=== PATIENT | female | born 1975 | race Caucasian/White ===

== ENCOUNTER 2018-11-02 08:38 | Inpatient (IN) | payer OTHER ==
[2018-11-02] VITALS (20 sets, daily range): BP systolic 92–118; BP diastolic 48–61; PULSE 114–143; RESP 14–35; Ht 165.1 cm; Wt 62.7 kg
[~2018-11-02] VITALS: Ht 165.1 cm; Wt 62.7 kg
[2018-11-02] MEDS ORDERED: SOD CHLORIDE 0.9% 1,000 ML IV ONE (09:00)
[2018-11-02] MEDS ORDERED: SOD CHLORIDE 0.9% 500 ML IV ONE (09:00)
[2018-11-02] MEDS ORDERED: NS + KCL 40 MEQ 1,000 ML IV SCH (09:38)
[2018-11-02] MEDS ORDERED: DEXTROSE 10 %/0.45 % NACL 1,000 ML IV SCH (09:38)
[2018-11-02] MEDS ORDERED: NS + KCL 30 MEQ 1,000 ML IV SCH (09:38)
[2018-11-02] MEDS ORDERED: D10/0.45% NACL + KCL 40 MEQ 1,000 ML IV SCH (09:38)
[2018-11-02] MEDS ORDERED: D10/0.45% NACL + KCL 30 MEQ 1,000 ML IV SCH (09:38)
[2018-11-02] MEDS ORDERED: CA CHLORIDE 10% 10 ML SYRINGE IV STA (09:57)
[2018-11-02] MEDS ORDERED: NA BICARBONATE 8.4% 50 ML SYG IV STA ×2 (09:57→13:31)
[2018-11-02] MEDS ORDERED: ALBUTEROL 0.5% (NEB) 2.5 MG/0.5 ML AMP INH STA (09:57)
[2018-11-02] MEDS ORDERED: DEXTROSE 50% 50 ML SYRINGE IV PRN ×7 (10:00→22:30)
[2018-11-02] MEDS ORDERED: INSULIN REGULAR, HUMAN 100 UNIT in SOD CHLORIDE 0.9% 100 ML IV SCH ×4 (10:00→11:30)
[2018-11-02] MEDS ORDERED: CEFEPIME 1GM/50 ML (PMX) 50 ML IVPB ONE (10:00)
[2018-11-02] MEDS ORDERED: VANCOMYCIN 1 GM (PMX) 250 ML IVPB ONE (10:00)
[2018-11-02] MEDS ORDERED: LACTATED RINGER'S 590 ML IV ONE (10:00)
[2018-11-02] MEDS ORDERED: ACETAMINOPHEN 325 MG TAB PO PRN (10:30)
[2018-11-02] MEDS ORDERED: ONDANSETRON 4 MG INJ IV PRN ×2 (10:30→11:30)
--- NOTE | 2018-11-02 10:47 | ERD ---
ER Documentation Chief Complaint Chief Complaint hyperglycemia HPI This is a 42-year-old female with a past medical history of insulin-dependent diabetes who is presenting with symptoms concerning for DKA. The patient has had several days of progressive worsening lethargy, dehydration, polydipsia, polyuria, nausea and abdominal pain. She does not endorse vomiting or diarrhea. The patient has been more lethargic as well. She does not endorse feeling sick over the last several days. She denies any fever or chills. The patient has had no headache or vision changes. The patient does not endorse neck or back pain. The patient denies lightheadedness or dizziness. The patient has had no chest pain or trouble breathing. The patient denies abdominal pain. The patient denies changes to bowel movements. The patient has had no focal deficits. The patient has had no weakness or numbness or tingling to the face or extremities. ROS All systems reviewed and are negative except as per history of present illness. Medications Home Meds Unable to Obtain Active Prescriptions or Reported Meds Allergies Allergies: Coded Allergies: No Known Allergy (Unverified , 11/02/18) PMhx/Soc Medical and Surgical Hx: pt denies Surgical Hx History of Surgery: No Anesthesia Reaction: No Hx Neurological Disorder: No Hx Respiratory Disorders: No Hx Cardiac Disorders: Yes (Type 1 diabetes) Hx Psychiatric Problems: No Hx Miscellaneous Medical Probl: No Hx Alcohol Use: No Hx Substance Use: No Hx Tobacco Use: No FmHx Family History: diabetes Physical Exam Vitals Vital Signs Date Temp Pulse Resp B/P (MAP) Pulse Ox O2 O2 Flow FiO2 Time Delivery Rate 11/02/18 97.2 120 26 151/82 98 08:39 (105) Physical Exam Const: No apparent distress, well-developed, well-nourished Head: Normocephalic, Atraumatic Eyes: Normal Conjunctiva. Extraocular movements intact. Pupils equal, round and reactive to light ENT: Normal External Ears, Nose. Dry mucous membranes. Neck: Full range of motion. No meningismus. Resp: Tachypneic. Clear to auscultation bilaterally, No wheezes, rales or rhonchi Cardio: Regular rhythm. Tachycardia. No murmurs, rubs or gallops Abd: Soft, non tender, non distended. Normal bowel sounds Skin: No petechiae or rashes Back: No midline tenderness. No CVA tenderness Ext: No cyanosis, or edema Neur: Sleepy but arousable, oriented 4. Cranial nerves intact. No facial droop. Normal strength, sensation and coordination. Psych: Anxious Result Diagram: 11/02/18 0924 11/02/18 1500 Results 24 hrs Laboratory Tests Test 11/02/18 09:01 11/02/18 09:24 11/02/18 10:18 Bedside Glucose > 595 mg/dL > 595 mg/dL White Blood Count 20.4 10^3/ul Red Blood Count 4.93 10^6/ul Hemoglobin 14.4 g/dl Hematocrit 49.1 % Mean Corpuscular Volume 99.6 fl Mean Corpuscular Hemoglobin 29.2 pg Mean Corpuscular 29.3 g/dl Hemoglobin Concent Red Cell Distribution Width 12.4 % Platelet Count 431 10^3/UL Mean Platelet Volume 11.3 fl Immature Granulocytes % 0.700 % Neutrophils % 88.9 % Lymphocytes % 7.8 % Monocytes % 2.3 % Eosinophils % 0.0 % Basophils % 0.3 % Nucleated Red Blood Cells % 0.0 /100WBC Immature Granulocytes # 0.140 10^3/ul Neutrophils # 18.1 10^3/ul Lymphocytes # 1.6 10^3/ul Monocytes # 0.5 10^3/ul Eosinophils # 0.0 10^3/ul Basophils # 0.1 10^3/ul Nucleated Red Blood Cells # 0.0 10^3/ul Blood Gas Specimen Source Blood venous Arterial Blood Date Drawn 11/02/2018 9:26:21 AM Arterial Blood Gas VENOUS LINE Puncture Site Robbin Test N/A Venous Blood pH 6.959 Venous Blood pCO2 15.3 mmHG (Temp Corrected) Venous Blood pO2 75.3 mmHG (Temp Corrected) Venous Blood HCO3 3.4 mmol/L Venous Blood Oxygen 87.3 mmHG Saturation Venous Blood Base Excess -27.1 mmol/L Venous Blood Total 14.5 g/dl Hemoglobin Venous Blood Oxyhemoglobin 86.7 % Venous Blood Methemoglobin 0.3 % Carboxyhemoglobin 0.4 % Blood Gas Temperature 37.0 C Blood Gas Modality ROOM AIR FiO2 21.0 % Blood Gas Critical Value DR. EGAN Read Back Blood Gas Notified Whom Matilda Blood Gas Notified Time 11/02/2018 9:35:52 AM Sodium Level 137 mmol/L Potassium Level 7.4 mmol/L Chloride Level 104 mmol/L Carbon Dioxide Level 6 mmol/L Anion Gap 27 Blood Urea Nitrogen 22 mg/dl Creatinine 1.03 mg/dl Est Glomerular Filtrat 59 mL/min Rate mL/min Glucose Level 774 mg/dl Hemoglobin A1c 11.3 % Calcium Level 10.3 mg/dl Phosphorus Level 10.1 mg/dl Magnesium Level 3.0 mg/dl Current Medications Medications Dose Sig/[place] Start Time Status Last (Trade) Ordered Route PRN Stop Time Admin Dose Reason Admin Sodium 1,000 ml @ Q1H ONCE 11/02/18 DC 11/02/18 Chloride 1,000 mls/hr IV 09:00 08:56 11/02/18 09:59 Sodium 500 ml @ Q1H ONCE 11/02/18 DC 11/02/18 Chloride 500 mls/hr IV 09:00 08:58 11/02/18 09:59 Potassium 1,000 ml @ Q0M IV 11/02/18 Chloride/Sodi 0 mls/hr 09:38 um Chloride Potassium 1,000 ml @ Q0M IV 11/02/18 Chloride/Dext 0 mls/hr 09:38 vipin/ Sod Cl Potassium 1,000 ml @ Q0M IV 11/02/18 Chloride/Sodi 0 mls/hr 09:38 um Chloride Potassium 1,000 ml @ Q0M IV 11/02/18 Chloride/Dext 0 mls/hr 09:38 vipin/ Sod Cl Sodium 1,000 ml @ Q0M IV 11/02/18 11/02/18 Chloride 0 mls/hr 09:38 15:57 1,000 ml @ Q0M IV 11/02/18 Dextrose/Sodi 0 mls/hr 09:38 um Chloride Insulin 101 ml @ ER DKA 11/02/18 DC Human 5.97 mls/hr PROTOCOL IV 10:00 Regular 100 11/02/18 11:43 unit/ Sodium Chloride Lactated 590 ml @ ONCE ONCE 11/02/18 DC 11/02/18 Ringer's 590 mls/hr IV 10:00 10:22 11/02/18 10:59 HYPOGLYCEM 11/02/18 Miscellaneous HYPOGLYCEMIA PROTOCOL PRN 10:00 TREATMENT XX Information .HYPOGLYCEMIA (* PROTOCOL Miscellaneous Pharmacy Order) Dextrose 50 ml Q15M PRN 11/02/18 DC (D50w IV 10:00 Syringe) .DECREASED 11/02/18 11:44 GLUCOSE Dextrose 25 ml Q15M PRN 11/02/18 DC (D50w IV 10:00 Syringe) .DECREASED 11/02/18 11:44 GLUCOSE Albuterol 15 mg ONCE STAT 11/02/18 DC 11/02/18 (Proventil INH 09:57 11:23 0.5% (Neb)) 11/02/18 10:41 Sodium 50 ml ONCE STAT 11/02/18 DC 11/02/18 Bicarbonate IV 09:57 10:48 (Na Bicarb 11/02/18 10:41 8.4% Syg) Calcium 1,000 mg ONCE STAT 11/02/18 DC 11/02/18 Chloride IV 09:57 10:51 (Ca Chloride 11/02/18 10:44 10% Syg) Vancomycin 250 ml @ ONCE ONCE 11/02/18 DC 11/02/18 HCl 125 mls/hr IVPB 10:00 11:58 11/02/18 11:59 Cefepime HCl 50 ml @ ONCE ONCE 11/02/18 DC 11/02/18 100 mls/hr IVPB 10:00 11:15 11/02/18 10:42 Procedures/MDM MDM The patient's presentation warrants further investigation. Previous medical records, if available, were reviewed. LABS The patient's laboratory testing was obtained and reviewed. No emergent treatment was required unless described below. CBC: Leukocytosis, potentially related to an infectious etiology. No E/o severe anemia. Thrombocytosis, likely reactive BMP: Severe anion gap metabolic acidosis in the setting of significant hyperglycemia, concerning for diabetic ketoacidosis. Hyperkalemia, emergent. Mildly elevated BUN and creatinine, concerning for acute kidney injury. Lactate: E/o severe sepsis Urine: Glucosuria and ketonuria without evidence of infection or hematuria. EKG EKG read by me: Rate/Rhythm: Sinus tachycardia at 119 bpm Intervals: Normal [place]: Normal Impression: No evidence of acute ischemia. Sinus tachycardia. TREATMENT/DISPOSITION The patient presents with symptoms concerning for DKA. The DKA protocol was initiated. The patient was hyperkalemic and required emergent treatment for this as well. The patient is tachycardic and has a leukocytosis. This could be from DKA itself, but I cannot definitively rule out sepsis from the emergency department. The patient was given an initial bolus of 1500 mL of IV fluids. She was later given lactated Ringer's to bring her up to 30 mL/kg within the first 3 hours. The patient was also provided broad-spectrum antibiotics after blood cultures were taken. During reassessment, the patient became more lethargic and unresponsive. She started to have 2 small breathing. At this point, the decision was made to emergently intubate the patient. ENDOTRACHEAL INTUBATION Performed by me. Pre-assessment performed. Pre-oxygenation performed with 100% oxygen. RSI: Performed w/o complication or hypoxic events. Medications as ordered. Blade: Mac 3 via video larygnoscope ET Tube: 7.0 mm Depth: 23 cm at the lip Intubation confirmed by visualization, colorimetric CO2, equal breath sounds, quiet over the stomach. Chest X-ray 1V Interpreted by me: ET tube midline above the ryne. Normal soft tissue, No pneumothorax. SEPSIS NOTE SIRS Criteria: Tachycardia, leukocytosis Infectious source: Unknown End organ damage indicated by: None SEPSIS MANAGEMENT Time to recognize sepsis: Upon arrival. Time to recognize severe sepsis: No severe sepsis at this time. Time to recognize septic shock: No septic shock at this time. 3 HOUR BUNDLE Blood cultures x 2 before abx: Yes 30 ml/kg NS bolus completed Initial lactate 1.6 Repeat lactate not indicated SEPTIC SHOCK ASSESSMENT: YES lactic acid > 4.0 NO persistent hypotension (SBP < 90 or 40 mmHg drop, MAP < 65) despite 30 L/kg IV fluid bolus VOLUME REASSESSMENT FOR SEPTIC SHOCK: Reevaluation Time: 1302 Temp 97.2 (performed at 12:20PM), BP 115/61, HR 122, RR, Pox 97% Heart Regular rate. Tachycardia Lungs [No crackles] Skin [Warm & dry] Cap Refill [Less than 2 seconds] Pulses [Radially present] CRITICAL CARE Critical care time 43 minutes Emergent fluid management while maintaining close respiratory support. Provision of immediate and broad-spectrum antibiotic therapy. Simultaneous assessment for possible sources in order to direct targeted therapy. Consideration for invasive and chemical support to prevent cardiopulmonary collapse. Critical care time is independent of procedures performed. ADMISSION The patient will be admitted to panel in accordance with the patient's insurance. The patient was accepted by Dr. Puckett to the ICU at 10:15 AM on November 02, 2018. Disclaimer: Inadvertent spelling and grammatical errors are likely due to E HR/dictation software use and do not reflect on the overall quality of patient care. Note that the electronic time recorded on this note does not necessarily reflect the actual time of the patient encounter. Departure Diagnosis: Primary Impression: Diabetic ketoacidosis Diabetes mellitus type: type 1 Diabetes mellitus complication detail: without coma Qualified Codes: E10.10 - Type 1 diabetes mellitus with ketoacidosis without coma Additional Impressions: Hyperglycemia High anion gap metabolic acidosis Tachycardia Tachypnea Leukocytosis Leukocytosis type: unspecified Qualified Codes: D72.829 - Elevated white blood cell count, unspecified Thrombocytosis Hyperkalemia Acute kidney injury Septic shock Condition: Critical NIYA EGAN MD Nov 02, 2018 10:45
[2018-11-02] MEDS: ACCU-CHEK XX SCH ×12 (11:30→22:30)
[2018-11-02] MEDS ORDERED: DOCUSATE SODIUM 100 MG CAP PO PRN (11:30)
[2018-11-02] MEDS ORDERED: HYDROCODONE/APAP (5/325) TAB PO PRN (11:30)
[2018-11-02] MEDS ORDERED: MAGNESIUM HYDROXIDE 30ML CUP PO PRN (11:30)
[2018-11-02] MEDS ORDERED: Please discontinue ALL previous duplicate IV Fluid orders for DKA from ER XX ONE (11:30)
[2018-11-02] MEDS ORDERED: PIPER-TAZO 3.375 GM IV (PMX) 100 ML IVPB SCH (12:00)
[2018-11-02] MEDS: SOD CHLORIDE 0.9% 1,000 ML IV SCH ×2 (12:19→15:57)
--- NOTE | 2018-11-02 13:20 | HP ---
Date/Time of Note Date/Time of Note DATE: 11/02/18 TIME: 13:19 Assessment/Plan VTE Prophylaxis SCD applied (from Nsg): Yes Pharmacological prophylaxis: LMWH Lines/Catheters IV Catheter Type (from Nrsg): Saline Lock Assessment/Plan Assessment/Plan 1. Severe DKA - Management per protocol - requiring extra LR boluses given very dehydrated - continue ISS 2. hyperkalemia - given calcium carbonate in ED - continues to improve while on insulin drip - continue to monitor - no arrhythmias appreciated 3. Leukocytosis - no signs of infection and most likely reactive 4. Severe metabolic acidosis secondary to #1 5. h/o DM type 1 - has not been well managed given has not had her insulin pump - discussed with mother who states she needs to make an appointment and has been having issues 6. ISABELLE, prerenal - continue fluid resuscitation - monitor Cr and if worsening, will consult nephrology 7. Acute hypoxic respiratory failure - vent management per Pulmonology 8. GI ppx - PPI 9. DVT ppx - LMWH 10. Disposition - Admit to ICU for vent management and DKA protocol Result Diagram: 11/02/18 0924 11/02/18 1125 Results 24hrs Laboratory Tests Test 11/02/18 09:01 11/02/18 09:24 11/02/18 10:18 11/02/18 10:31 Bedside Glucose > 595 *H > 595 *H White Blood 20.4 H Count Red Blood Count 4.93 Hemoglobin 14.4 Hematocrit 49.1 H Mean Corpuscular 99.6 Volume Mean Corpuscular 29.2 Hemoglobin Mean Corpuscular 29.3 L Hemoglobin Shirley nt Red Cell 12.4 Distribution Width Platelet Count 431 H Mean Platelet 11.3 H Volume Immature 0.700 H Granulocytes % Neutrophils % 88.9 H Lymphocytes % 7.8 L Monocytes % 2.3 Eosinophils % 0.0 Basophils % 0.3 Nucleated Red 0.0 Blood Cells % Immature 0.140 H Granulocytes # Neutrophils # 18.1 H Lymphocytes # 1.6 Monocytes # 0.5 Eosinophils # 0.0 Basophils # 0.1 Nucleated Red 0.0 Blood Cells # Blood Gas Blood venous Specimen Source Arterial Blood 11/02/2018 9:26: Date Drawn 21 AM Arterial Blood VENOUS LINE Gas Puncture Site Robbin Test N/A Venous Blood pH 6.959 *L Venous Blood 15.3 L pCO2 (Temp Corrected) Venous Blood pO2 75.3 H (Temp Corrected) Venous Blood 3.4 L HCO3 Venous Blood 87.3 H Oxygen Saturation Venous Blood -27.1 L Base Excess Venous Blood 14.5 Total Hemoglobin Venous Blood 86.7 Oxyhemoglobin Venous Blood 0.3 Methemoglobin Carboxyhemoglobi 0.4 n Blood Gas 37.0 Temperature Blood Gas ROOM AIR Modality FiO2 21.[address] EGAN Critical Value Read Back Blood Gas Matilda Notified Whom Blood Gas 11/02/2018 9:35: Notified Time 52 AM Sodium Level 137 Potassium Level 7.4 *H Chloride Level 104 Carbon Dioxide 6 *L Level Anion Gap 27 H Blood Urea 22 H Nitrogen Creatinine 1.03 H Est Glomerular 59 L Filtrat Rate mL/min Glucose Level 774 *H Hemoglobin A1c 11.3 H Calcium Level 10.3 H Phosphorus Level 10.1 H Magnesium Level 3.0 H POC Venous 3.2 *H Lactate Test 11/02/18 10:41 11/02/18 11:25 11/02/18 11:38 11/02/18 11:44 Urine Color STRAW Urine Clarity CLEAR Urine pH 5.0 Urine Specific 1.021 [place] Urine Ketones 2+ H Urine Nitrite NEGATIVE Urine Bilirubin NEGATIVE Urine NEGATIVE Urobilinogen Urine Leukocyte NEGATIVE Esterase Urine 0 Microscopic RBC Urine 1 Microscopic WBC Urine Bacteria FEW A Urine Mucus FEW A Urine Hemoglobin 1+ H Urine Glucose 3+ H Urine Total NEGATIVE Protein Urine Opiates Negative Screen Urine Negative Barbiturates Urine Positive Amphetamines Screen Urine Negative Benzodiazepines Screen Urine Cocaine Negative Screen Urine Negative Cannabinoids Sodium Level 140 Potassium Level 7.3 *H Chloride Level 110 Carbon Dioxide < 5 *L Level Anion Gap 25 H Blood Urea 22 H Nitrogen Creatinine 1.06 H Est Glomerular 57 L Filtrat Rate mL/min Glucose Level 775 *H Calcium Level 11.3 H Phosphorus Level 10.6 H Magnesium Level 2.8 H Blood Gas Blood venous Specimen Source Arterial Blood 11/02/2018 12:20 Date Drawn :00 PM Arterial Blood VENOUS LINE Gas Puncture Site Robbin Test N/A Venous Blood pH 6.816 *L Venous Blood 10.6 L pCO2 (Temp Corrected) Venous Blood pO2 107.9 H (Temp Corrected) Venous Blood 1.7 L HCO3 Venous Blood 93.2 H Oxygen Saturation Venous Blood -31.6 L Base Excess Venous Blood 13.6 Total Hemoglobin Venous Blood 92.5 Oxyhemoglobin Venous Blood 0.4 Methemoglobin Carboxyhemoglobi 0.3 n Blood Gas 37.0 Temperature Blood Gas ROOM AIR Modality FiO2 21.0 Blood Gas M.D. Critical Value Read Back Blood Gas M.D. Notified Whom Blood Gas 11/02/2018 12:29 Notified Time :27 PM Bedside Glucose > 595 *H Test 11/02/18 13:04 Bedside Glucose > 595 *H HPI/ROS Admit Date/Time Admit Date/Time 11/02/18 1300 Hx of Present Illness 42 yo F with PMH Diabetes type 1 and CVA presented to ED due to abdominal pain, nausea, and overall malaise since yesterday. Patient was intubated due to respiratory distress and history was obtain from ED physician as well as mother. Per mother, patient usually is on an insulin pump but has not had hers so had been manually dosing her insulin with little success. She has been very thirsty and drinking diet coke. Patient was in normal state of health until around noon when she asked her mom to call the ambulance. Patient has been hospitalized recently for DKA at [facility]. Per mother, patients father in April 2018. The pump she was supposed to transition to after her current one failed was accidently thrown away when her fathers house was cleaned out since she was residing with him. She was unable to adequately manage her sugars and ended up in ICU at [facility]. Following admission, she tried to get in with an aerospace engineer for a new pump but has not been successful. She was hospitalized again in July 2018 for DKA as well and still has not followed up with Endocrinology. Per mother, she usually is very good about glucose control when she had the pump but has been struggling since administering insulin manually. Denies any knowledge of drug or alcohol use currently. Mother states she used in her 20s but has been told she no longer uses any recreational drug or alcohol. ROS All 12 systems reviewed and pertinent positives as per HPI. Unable to obtain full ROS given patient is intubated and sedated. Subjective hx not possible: pt critical status PMH/Family/Social Past Medical History Medical History: diabetes Medications Current Medications Potassium Chloride/Sodium Chloride 1,000 ml @ 0 mls/hr Q0M IV ; Start 11/02/18 at 09:38 Potassium Chloride/Dextrose/ Sod Cl 1,000 ml @ 0 mls/hr Q0M IV ; Start 11/02/18 at 09:38 Potassium Chloride/Sodium Chloride 1,000 ml @ 0 mls/hr Q0M IV ; Start 11/02/18 at 09:38 Potassium Chloride/Dextrose/ Sod Cl 1,000 ml @ 0 mls/hr Q0M IV ; Start 11/02/18 at 09:38 Sodium Chloride 1,000 ml @ 0 mls/hr Q0M IV Last administered on 11/02/18at 12:19; Admin Dose 250 MLS/HR; Start 11/02/18 at 09:38 Dextrose/Sodium Chloride 1,000 ml @ 0 mls/hr Q0M IV ; Start 11/02/18 at 09:38 Miscellaneous Information (* Miscellaneous Pharmacy Order) HYPOGLYCEMIA CECELIA TMENT HYPOGLYCEM PROTOCOL PRN XX .HYPOGLYCEMIA PROTOCOL; Start 11/02/18 at 10:00 Ondansetron HCl (Zofran Inj) 4 mg ER BRIDGE PRN IV NAUSEA/VOMITING; Start 11/02/18 at 10:30; Stop 11/03/18 at 10:29 Acetaminophen (Tylenol Tab) 650 mg ER BRIDGE PRN PO .MILD PAIN 1-3 OR TEMP; Start 11/02/18 at 10:30; Stop 11/03/18 at 10:29 Ondansetron HCl (Zofran Inj) 4 mg Q6H PRN IV NAUSEA AND/OR VOMITING; Start 07/11 at 11:30 Acetaminophen (Tylenol Liquid) 650 mg Q6H PRN PO PAIN LEVEL 1-3 OR FEVER; Start 11/02/18 at 11:30 Acetaminophen/ Hydrocodone Bitart ([place] (5/325)) 1 tab Q6H PRN PO PAIN LEVEL 4-6; Start 11/02/18 at 11:30 Docusate Sodium (Colace) 100 mg Q12H PRN PO CONSTIPATION; Start 11/02/18 at 1 1:30 Magnesium Hydroxide (Milk Of Mag) 30 ml DAILY PRN PO CONSTIPATION; Start 11/02/18 at 11:30 Pantoprazole (Protonix Iv) 40 mg DAILY@06 IV ; Start 11/03/18 at 06:00 Enoxaparin Sodium (Lovenox) 40 mg DAILY SC ; Start 11/03/18 at 09:00 Dextrose (D50w Syringe) 50 ml Q15M PRN IV For BS 50 or less; Start 11/02/18 at 11:30 Dextrose (D50w Syringe) 25 ml Q15M PRN IV BS between 50-70; Start 11/02/18 at 11:30 Diagnostic Test (Pha) (Accu-Chek) 1 ea Q1H XX ; Start 11/02/18 at 11:30 Miscellaneous Information (* Miscellaneous Pharmacy Order) HYPOGLYCEMIA TREATMENT HYPOGLYCEM PROTOCOL PRN XX Hypoglycemia (BS < 70); Start 11/02/18 at 11:30 Insulin Human Regular 100 unit/ Sodium Chloride 101 ml @ 5.97 mls/hr DKA PROTOCOL IV Last administered on 11/02/18at 12:18; Admin Dose 5.97 MLS/HR; Start 11/02/18 at 11:30 Piperacillin Sod/ Tazobactam Sod 100 ml @ 200 mls/hr Q8 IVPB ; Start 11/02/18 at 12:00 Coded Allergies: No Known Allergy (Unverified , 11/02/18) Past Surgical History Past Surgical Hx: other (breast implants) Family History Significant Family History: no pertinent family hx Social History Alcohol Use: other (unknown) Smoking Status: Unknown if ever smoked Drug Use: other (unknown) Exam/Review of Systems Vital Signs Vitals Vital Signs Date Temp Pulse Resp B/P (MAP) Pulse Ox O2 O2 Flow FiO2 Time Delivery Rate 11/02/18 122 22 115/61 97 13:02 (79) 11/02/18 97.2 Room Air 12:20 11/02/18 2.0 11:38 11/02/18 21 11:24 Exam Exam General: Patient is currently intubated and sedated. [place]ul breathing appreciated HEENT: Atraumatic, normocephalic. The pupils are equal, round and reactive. Extraocular motor are intact Neck: Supple with full range of motion. No rigidity or meningismus Chest: Nontender Lungs: Clear to auscultation bilaterally no crackles rales or wheezing Heart: S1, S2, tachycardia, no murmurs Abdomen: Soft , nontender, nondistended , bowel sounds are present. No guarding no rebound tenderness , No masses or organomegaly. No costovertebral temporal angle mass Extremities: Normal to inspection, no edema no cyanosis Neurologic: unable to assess Skin: no lesions or rashes appreciated Additional Comments PROCEDURE: XR Chest. CLINICAL INDICATION: Sepsis TECHNIQUE: Frontal chest x-ray was obtained. COMPARISON: None. FINDINGS: The heart is not enlarged. Mediastinum is not widened. No hilar masses seen. Lungs are clear of any infiltrates. There is no effusion or pneumothorax. The osseous structures appear normal. Patient is status post bilateral augmentation mammoplasty. IMPRESSION: No evidence for active cardiopulmonary disease. .Kostas Ravi MD, MD Date Time Electronically viewed and signed by .Kostas Ravi MD, MD on 11/02/2018 11:08 GOSIA PONCE MD Nov 02, 2018 13:19
[2018-11-02] MEDS ORDERED: LACTATED RINGER'S 500 ML IV ONE (14:00)
[2018-11-02] MEDS ORDERED: MIDAZOLAM 1 MG/ML 2 ML INJ ONE (14:07)
[2018-11-02] MEDS ORDERED: MIDAZOLAM 1 MG/ML 2 ML INJ IV ONE ×2 (14:30→16:30)
[2018-11-02] MEDS ORDERED: SODIUM BICARBONATE (IV ADD) 50 MEQ in DEXTROSE 5% 950 ML IV SCH (14:30)
[2018-11-02] MEDS ORDERED: INSULIN REGULAR, HUMAN 100 UNIT in SOD CHLORIDE 0.9% 99 ML IV SCH ×2 (14:41)
[2018-11-02] MEDS ORDERED: LACTATED RINGER'S 1,000 ML IV ONE ×2 (15:00→16:30)
--- NOTE | 2018-11-02 15:02 | CONS ---
Assessment/Plan Assessment/Plan Assessment/Plan (Daily) IMP: 1. Severe DKA 2. Severe Anion Gap Metabolic Acidosis 2/2 #1 3. Pre-renal azotemia 4. Resp Failure 2/2 severe acidemia 5. HyperK+ 2/2 #1 6. Possible substance abuse and noncompliance RECS: 1. Aggressive IV resuscitation with isotonic fluids 2. Insulin gtt 3. Panculture; serial troponins 4. check TSH 5. Needs IV access 6. D/C abx 7. DVT and GI prophy 8. Q 2 hour chemistry and lytes 9. Vent to V-AC 30 VT 400; follow gases 10. Needs central line Consultation Date/Type/Reason Admit Date/Time Date of Consultation: Nov 02, 2018 Type of Consult Pulm/CCM Date/Time of Note DATE: 11/02/18 TIME: 14:53 Hx of Present Illness Briefly, this is a 42-year-old female with type I DM, previously on insulin pump who, possible amphetamine use, who presents with nausea/vomiting, hyperglycemia, and dehydration, noted to be in severe DKA with associated AG metabolic acidosis, ISABELLE and increased waze-or-scftnfpgd, s/p intubation in the ED. She currently intubated on mechanical ventilation on sedation. Subjective hx not possible: pt non-verbal Past Medical History Medical History: diabetes Home Meds Unable to Obtain Active Prescriptions or Reported Meds Medications Current Medications Potassium Chloride/Sodium Chloride 1,000 ml @ 0 mls/hr Q0M IV ; Start 11/02/18 at 09:38 Potassium Chloride/Dextrose/ Sod Cl 1,000 ml @ 0 mls/hr Q0M IV ; Start 11/02/18 at 09:38 Potassium Chloride/Sodium Chloride 1,000 ml @ 0 mls/hr Q0M IV ; Start 11/02/18 at 09:38 Potassium Chloride/Dextrose/ Sod Cl 1,000 ml @ 0 mls/hr Q0M IV ; Start 11/02/18 at 09:38 Sodium Chloride 1,000 ml @ 0 mls/hr Q0M IV Last administered on 11/02/18at 12:19; Admin Dose 250 MLS/HR; Start 11/02/18 at 09:38 Dextrose/Sodium Chloride 1,000 ml @ 0 mls/hr Q0M IV ; Start 11/02/18 at 09:38 Miscellaneous Information (* Miscellaneous Pharmacy Order) HYPOGLYCEMIA TREATMENT HYPOGLYCEM PROTOCOL PRN XX .HYPOGLYCEMIA PROTOCOL; Start 11/02/18 at 10:00 Ondansetron HCl (Zofran Inj) 4 mg ER BRIDGE PRN IV NAUSEA/VOMITING; Start 11/02/18 at 10:30; Stop 11/03/18 at 10:29 Acetaminophen (Tylenol Tab) 650 mg ER BRIDGE PRN PO .MILD PAIN 1-3 OR TEMP; Start 11/02/18 at 10:30; Stop 11/03/18 at 10:29 Ondansetron HCl (Zofran Inj) 4 mg Q6H PRN IV NAUSEA AND/OR VOMITING; Start 11/02/18 at 11:30 Acetaminophen (Tylenol Liquid) 650 mg Q6H PRN PO PAIN LEVEL 1-3 OR FEVER; Start 11/02/18 at 11:30 Acetaminophen/ Hydrocodone Bitart ([place] (5/325)) 1 tab Q6H PRN PO PAIN LEVEL 4-6; Start 11/02/18 at 11:30 Docusate Sodium (Colace) 100 mg Q12H PRN PO CONSTIPATION; Start 11/02/18 at 11:30 Magnesium Hydroxide (Milk Of Mag) 30 ml DAILY PRN PO CONSTIPATION; Start 11/02/18 at 11:30 Pantoprazole (Protonix Iv) 40 mg DAILY@06 IV ; Start 11/03/18 at 06:00 Enoxaparin Sodium (Lovenox) 40 mg DAILY SC ; Start 11/03/18 at 09:00 Dextrose (D50w Syringe) 50 ml Q15M PRN IV For BS 50 or less; Start 11/02/18 at 11:30 Dextrose (D50w Syringe) 25 ml Q15M PRN IV BS between 50-70; Start 11/02/18 at 11:30 Diagnostic Test (Pha) (Accu-Chek) 1 ea Q1H XX ; Start 11/02/18 at 11:30 Miscellaneous Information (* Miscellaneous Pharmacy Order) HYPOGLYCEMIA TREATMENT HYPOGLYCEM PROTOCOL PRN XX Hypoglycemia (BS < 70); Start 11/02/18 at 11:30 Propofol 100 ml @ 1.773 mls/ hr PER PROTOCOL IV ; Start 11/02/18 at 13:30 Lactated Ringer's 500 ml @ 500 mls/hr Q1H ONCE IV ; Start 11/02/18 at 14:00; Stop 11/02/18 at 14:59 Fentanyl 1000 mcg/ Sodium Chloride 100 ml @ 2.5 mls/hr TITRATE IV ; Start 11/02/18 at 15:30 Lactated Ringer's 1,000 ml @ 1,000 mls/hr Q1H ONCE IV ; Start 11/02/18 at 15:00; Stop 11/02/18 at 15:59 Insulin Human Regular 100 unit/ Sodium Chloride 100 ml @ 6.27 mls/hr DKA PROTOCOL IV ; Start 11/02/18 at 14:41 Allergies: Coded Allergies: No Known Allergy (Unverified , 11/02/18) Past Surgical History Past Surgical Hx: no surgical history Family History Significant Family History: no pertinent family hx Social History Alcohol Use: other (? amphetamines ) Drug Use: none Exam/Review of Systems Exam Vitals Vital Signs Date Temp Pulse Resp B/P (MAP) Pulse Ox O2 O2 Flow FiO2 Time Delivery Rate 11/02/18 35 14:04 11/02/18 128 13:25 11/02/18 100 50 13:25 11/02/18 115/61 13:02 (79) 11/02/18 97.2 Room Air 12:20 11/02/18 2.0 11:38 Constitutional: non-verbal Psych: confusion Head: normocephalic, atraumatic Eyes: nl conjunctiva, nl lids ENMT: nl external ears & nose, nl lips & teeth, mucosa pink and moist, intubated Neck: supple, non-tender Respiratory: clear to auscultation, normal air movement Cardiovascular: regular rate and rhythm Gastrointestinal: soft, nl liver, spleen Musculoskeletal: nl extremities to inspection Neurological: confused, DTR's symmetric Results Result Diagram: 11/02/18 0924 11/02/18 1125 Results 24hrs Laboratory Tests Test 11/02/18 09:01 11/02/18 09:24 11/02/18 10:18 11/02/18 10:31 Bedside Glucose > 595 *H > 595 *H White Blood 20.4 H Count Red Blood Count 4.93 Hemoglobin 14.4 Hematocrit 49.1 H Mean Corpuscular 99.6 Volume Mean Corpuscular 29.2 Hemoglobin Mean Corpuscular 29.3 L Hemoglobin Shirley nt Red Cell 12.4 Distribution Width Platelet Count 431 H Mean Platelet 11.3 H Volume Immature 0.700 H Granulocytes % Neutrophils % 88.9 H Lymphocytes % 7.8 L Monocytes % 2.3 Eosinophils % 0.0 Basophils % 0.3 Nucleated Red 0.0 Blood Cells % Immature 0.140 H Granulocytes # Neutrophils # 18.1 H Lymphocytes # 1.6 Monocytes # 0.5 Eosinophils # 0.0 Basophils # 0.1 Nucleated Red 0.0 Blood Cells # Blood Gas Blood venous Specimen Source Arterial Blood 11/02/2018 9:26: Date Drawn 21 AM Arterial Blood VENOUS LINE Gas Puncture Site Robbin Test N/A Venous Blood pH 6.959 *L Venous Blood 15.3 L pCO2 (Temp Corrected) Venous Blood pO2 75.3 H (Temp Corrected) Venous Blood 3.4 L HCO3 Venous Blood 87.3 H Oxygen Saturation Venous Blood -27.1 L Base Excess Venous Blood 14.5 Total Hemoglobin Venous Blood 86.7 Oxyhemoglobin Venous Blood 0.3 Methemoglobin Carboxyhemoglobi 0.4 n Blood Gas 37.0 Temperature Blood Gas ROOM AIR Modality FiO2 21.[address] EGAN Critical Value Read Back Blood Gas Matilda Notified Whom Blood Gas 11/02/2018 9:35: Notified Time 52 AM Sodium Level 137 Potassium Level 7.4 *H Chloride Level 104 Carbon Dioxide 6 *L Level Anion Gap 27 H Blood Urea 22 H Nitrogen Creatinine 1.03 H Est Glomerular 59 L Filtrat Rate mL/min Glucose Level 774 *H Hemoglobin A1c 11.3 H Calcium Level 10.3 H Phosphorus Level 10.1 H Magnesium Level 3.0 H POC Venous 3.2 *H Lactate Test 11/02/18 10:41 11/02/18 11:25 11/02/18 11:38 11/02/18 11:44 Urine Color STRAW Urine Clarity CLEAR Urine pH 5.0 Urine Specific 1.021 Alva Urine Ketones 2+ H Urine Nitrite NEGATIVE Urine Bilirubin NEGATIVE Urine NEGATIVE Urobilinogen Urine Leukocyte NEGATIVE Esterase Urine 0 Microscopic RBC Urine 1 Microscopic WBC Urine Bacteria FEW A Urine Mucus FEW A Urine Hemoglobin 1+ H Urine Glucose 3+ H Urine Total NEGATIVE Protein Urine Opiates Negative Screen Urine Negative Barbiturates Urine Positive Amphetamines Screen Urine Negative Benzodiazepines Screen Urine Cocaine Negative Screen Urine Negative Cannabinoids Sodium Level 140 Potassium Level 7.3 *H Chloride Level 110 Carbon Dioxide < 5 *L Level Anion Gap 25 H Blood Urea 22 H Nitrogen Creatinine 1.06 H Est Glomerular 57 L Filtrat Rate mL/min Glucose Level 775 *H Calcium Level 11.3 H Phosphorus Level 10.6 H Magnesium Level 2.8 H Blood Gas Blood venous Specimen Source Arterial Blood 11/02/2018 12:20 Date Drawn :00 PM Arterial Blood VENOUS LINE Gas Puncture Site Robbin Test N/A Venous Blood pH 6.816 *L Venous Blood 10.6 L pCO2 (Temp Corrected) Venous Blood pO2 107.9 H (Temp Corrected) Venous Blood 1.7 L HCO3 Venous Blood 93.2 H Oxygen Saturation Venous Blood -31.6 L Base Excess Venous Blood 13.6 Total Hemoglobin Venous Blood 92.5 Oxyhemoglobin Venous Blood 0.4 Methemoglobin Carboxyhemoglobi 0.3 n Blood Gas 37.0 Temperature Blood Gas ROOM AIR Modality FiO2 21.0 Blood Gas M.D. Critical Value Read Back Blood Gas M.D. Notified Whom Blood Gas 11/02/2018 12:29 Notified Time :27 PM Bedside Glucose > 595 *H Test 11/02/18 13:04 11/02/18 13:40 Bedside Glucose > 595 *H > 595 *H Medications Medication Current Medications Potassium Chloride/Sodium Chloride 1,000 ml @ 0 mls/hr Q0M IV ; Start 11/02/18 at 09:38 Potassium Chloride/Dextrose/ Sod Cl 1,000 ml @ 0 mls/hr Q0M IV ; Start 11/02/18 at 09:38 Potassium Chloride/Sodium Chloride 1,000 ml @ 0 mls/hr Q0M IV ; Start 11/02/18 at 09:38 Potassium Chloride/Dextrose/ Sod Cl 1,000 ml @ 0 mls/hr Q0M IV ; Start 11/02/18 at 09:38 Sodium Chloride 1,000 ml @ 0 mls/hr Q0M IV Last administered on 11/02/18at 12:19; Admin Dose 250 MLS/HR; Start 11/02/18 at 09:38 Dextrose/Sodium Chloride 1,000 ml @ 0 mls/hr Q0M IV ; Start 11/02/18 at 09:38 Miscellaneous Information (* Miscellaneous Pharmacy Order) HYPOGLYCEMIA TREATMENT HYPOGLYCEM PROTOCOL PRN XX .HYPOGLYCEMIA PROTOCOL; Start 11/02/18 at 10:00 Ondansetron HCl (Zofran Inj) 4 mg ER BRIDGE PRN IV NAUSEA/VOMITING; Start 11/02/18 at 10:30; Stop 11/03/18 at 10:29 Acetaminophen (Tylenol Tab) 650 mg ER BRIDGE PRN PO .MILD PAIN 1-3 OR TEMP; Start 11/02/18 at 10:30; Stop 11/03/18 at 10:29 Ondansetron HCl (Zofran Inj) 4 mg Q6H PRN IV NAUSEA AND/OR VOMITING; Start 11/02/18 at 11:30 Acetaminophen (Tylenol Liquid) 650 mg Q6H PRN PO PAIN LEVEL 1-3 OR FEVER; Start 11/02/18 at 11:30 Acetaminophen/ Hydrocodone Bitart ([place] (5/325)) 1 tab Q6H PRN PO PAIN LEVEL 4-6; Start 11/02/18 at 11:30 Docusate Sodium (Colace) 100 mg Q12H PRN PO CONSTIPATION; Start 11/02/18 at 11:30 Magnesium Hydroxide (Milk Of Mag) 30 ml DAILY PRN PO CONSTIPATION; Start 11/02/18 at 11:30 Pantoprazole (Protonix Iv) 40 mg DAILY@06 IV ; Start 11/03/18 at 06:00 Enoxaparin Sodium (Lovenox) 40 mg DAILY SC ; Start 11/03/18 at 09:00 Dextrose (D50w Syringe) 50 ml Q15M PRN IV For BS 50 or less; Start 11/02/18 at 11:30 Dextrose (D50w Syringe) 25 ml Q15M PRN IV BS between 50-70; Start 11/02/18 at 11:30 Diagnostic Test (Pha) (Accu-Chek) 1 ea Q1H XX ; Start 11/02/18 at 11:30 Miscellaneous Information (* Miscellaneous Pharmacy Order) HYPOGLYCEMIA TREATMENT HYPOGLYCEM PROTOCOL PRN XX Hypoglycemia (BS < 70); Start 11/02/18 at 11:30 Propofol 100 ml @ 1.773 mls/ hr PER PROTOCOL IV ; Start 11/02/18 at 13:30 Lactated Ringer's 500 ml @ 500 mls/hr Q1H ONCE IV ; Start 11/02/18 at 14:00; Stop 11/02/18 at 14:59 Fentanyl 1000 mcg/ Sodium Chloride 100 ml @ 2.5 mls/hr TITRATE IV ; Start 11/02/18 at 15:30 Lactated Ringer's 1,000 ml @ 1,000 mls/hr Q1H ONCE IV ; Start 11/02/18 at 15:00; Stop 11/02/18 at 15:59 Insulin Human Regular 100 unit/ Sodium Chloride 100 ml @ 6.27 mls/hr DKA PROTOCOL IV ; Start 11/02/18 at 14:41 JOANN DAVIS MD Nov 02, 2018 15:02
--- NOTE | 2018-11-02 15:09 | PRO ---
Date/Time of Note Date/Time of Note DATE: 11/02/18 TIME: 15:02 Femoral CV Placement PROCEDURE NOTE PROCEDURE: Right subclavian central venous catheter insertion INDICATION: Need for intravenous access due to severe DKA with resp failure PROCEDURE DRESS OPERATOR: Palomo CONSENT: Consent was implied due to the emergent nature of the procedure. PROCEDURE SUMMARY: Time out was performed. The patient was prepped and draped in the usual sterile manner. 1% lidocaine was used to numb the region. Using U/S guidance, the finder needle was used to locate the right subclavian vein. A triple lumen 8.5 Prydeinig 20 cm catheter was inserted using the Seldinger technique. All ports aspirate and flushed without difficulty. The patient tolerated the procedure well without any immediate complications. The line was sutured into place and the area was cleaned and Tegaderm applied. ESTIMATED BLOOD LOSS: 4 ml CXR shows catheter in mid-SVC JOANN DAVIS MD Nov 02, 2018 15:09
[2018-11-02] MEDS: FENTAnyl 1,000 MCG in SOD CHLORIDE 0.9% 80 ML IV SCH ×2 (15:18→23:06)
[2018-11-02] MEDS: PROPOFOL 100 ML IV SCH ×3 (15:32→21:19)
[2018-11-02] MEDS ORDERED: SODIUM BICARBONATE (IV ADD) 50 MEQ in DEXTROSE 5% 1,000 ML IV SCH (16:00)
[2018-11-02] MEDS: MIDAZOLAM (DRIP) 50 mg/50 mL 50 ML IV SCH ×2 (16:43→20:47)
[2018-11-02] MEDS ORDERED: METOPROLOL 5 MG INJ IV PRN (17:30)
[2018-11-02] MEDS: SODIUM BICARBONATE (IV ADD) 150 MEQ in DEXTROSE 5% 1,000 ML IV SCH (19:02)
[2018-11-02] MEDS ORDERED: GLUCAGON 1 MG INJ IM PRN (22:30)
[2018-11-02] MEDS ORDERED: GLUCOSE GEL 15 GRAM TUBE PO PRN ×2 (22:30)
[2018-11-02] MEDS ORDERED: GLUCOSE GEL 15 GRAM TUBE BUCCAL PRN (22:30)
[2018-11-02] MEDS: INSULIN HUMAN REGULAR 100 UNIT in SOD CHLORIDE 0.9% 99 ML IV SCH (23:05)
[2018-11-02] MEDS: DEXTROSE 5%-0.45% NACL 1,000 ML IV SCH (23:11)
[2018-11-03] VITALS (75 sets, daily range): BP systolic 98–159; BP diastolic 51–86; PULSE 104–125; RESP 18–30
[2018-11-03] MEDS: ACCU-CHEK XX SCH ×24 (01:04→23:06)
[2018-11-03] MEDS: PROPOFOL 100 ML IV SCH ×4 (02:26→20:00)
[2018-11-03] MEDS: MIDAZOLAM (DRIP) 50 mg/50 mL 50 ML IV SCH (02:34)
[2018-11-03] MEDS: SODIUM BICARBONATE (IV ADD) 150 MEQ in DEXTROSE 5% 1,000 ML IV SCH (06:20)
[2018-11-03] MEDS: PANTOPRAZOLE 40 MG INJ IV SCH (06:36)
--- NOTE | 2018-11-03 09:21 | PN ---
Date/Time of Note Date/Time of Note DATE: 11/03/18 TIME: 09:21 Assessment/Plan VTE Prophylaxis Risk score (from Nsg)>0 risk: 7 SCD applied (from Nsg): Yes Pharmacological prophylaxis: LMWH Lines/Catheters IV Catheter Type (from Nrsg): Central Line Central line still needed: Yes Urinary Cath still in place: Yes Reason Cath still needed: terminal illness/intractable pain Assessment/Plan Assessment/Plan 1. Acute hypoxic respiratory failure- stable - Patient remains on vent and management per Pulmonology - remain on vent today and will attempt weaning in the am - titrate down sedation 2. Severe DKA- resolved - protocol discontinued and transitioned to ICU insulin protocol. Sugars well controlled - continue IVF and d/c bicarb 3. hyperkalemia- resolved - given calcium carbonate in ED - continue to monitor 4. Leukocytosis - no signs of infection and most likely reactive - trending downward 4. Severe metabolic acidosis secondary to #1 - resolved - d/c bicarb ggt 5. h/o DM type 1 - Endocrinology consultation placed for further recommendations given patient was having difficulty managing her Dm type 1 off pump as outpatient - insulin drip per protocol - A1c noted 6. ISABELLE, prerenal- resolved 7. Questionable illicit drug use - drug panel + amphetamine - mother unaware of drug use 8. Disposition - Continue monitoring in ICU setting while on mechanical ventilation - Endocrine consultation placed for further recommendations >35 minutes of critical care time spent with patient Result Diagram: 11/03/18 0330 11/03/18 0330 Results 24hrs Laboratory Tests Test 11/02/18 09:24 11/02/18 10:18 11/02/18 10:31 11/02/18 10:41 White Blood 20.4 H Count Red Blood Count 4.93 Hemoglobin 14.4 Hematocrit 49.1 H Mean 99.6 Corpuscular Volume Mean 29.2 Corpuscular Hemoglobin Mean 29.3 L Corpuscular Hemoglobin Conc ent Red Cell 12.4 Distribution Width Platelet Count 431 H Mean Platelet 11.3 H Volume Immature 0.700 H Granulocytes % Neutrophils % 88.9 H Lymphocytes % 7.8 L Monocytes % 2.3 Eosinophils % 0.0 Basophils % 0.3 Nucleated Red 0.0 Blood Cells % Immature 0.140 H Granulocytes # Neutrophils # 18.1 H Lymphocytes # 1.6 Monocytes # 0.5 Eosinophils # 0.0 Basophils # 0.1 Nucleated Red 0.0 Blood Cells # Blood Gas Blood venous Specimen Source Arterial Blood 11/02/2018 9:26: Date Drawn 21 AM Arterial Blood VENOUS LINE Gas Puncture Site Robbin Test N/A Venous Blood pH 6.959 *L Venous Blood 15.3 L pCO2 (Temp Corrected ) Venous Blood 75.3 H pO2 (Temp Corrected ) Venous Blood 3.4 L HCO3 Venous Blood 87.3 H Oxygen Saturation Venous Blood -27.1 L Base Excess Venous Blood 14.5 Total Hemoglobin Venous Blood 86.7 Oxyhemoglobin Venous Blood 0.3 Methemoglobin Carboxyhemoglob 0.4 in Blood Gas 37.0 Temperature Blood Gas ROOM AIR Modality FiO2 21.[address] EGAN Critical Value Read Back Blood Gas Matilda Notified Whom Blood Gas 11/02/2018 9:35: Notified Time 52 AM Sodium Level 137 Potassium Level 7.4 *H Chloride Level 104 Carbon Dioxide 6 *L Level Anion Gap 27 H Blood Urea 22 H Nitrogen Creatinine 1.03 H Est Glomerular 59 L Filtrat Rate mL/min Glucose Level 774 *H Hemoglobin A1c 11.3 H Calcium Level 10.3 H Phosphorus 10.1 H Level Magnesium Level 3.0 H Bedside Glucose > 595 *H POC Venous 3.2 *H Lactate Urine Color STRAW Urine Clarity CLEAR Urine pH 5.0 Urine Specific 1.021 [place] Urine Ketones 2+ H Urine Nitrite NEGATIVE Urine Bilirubin NEGATIVE Urine NEGATIVE Urobilinogen Urine Leukocyte NEGATIVE Esterase Urine 0 Microscopic RBC Urine 1 Microscopic WBC Urine Bacteria FEW A Urine Mucus FEW A Urine 1+ H Hemoglobin Urine Glucose 3+ H Urine Total NEGATIVE Protein Urine Opiates Negative Screen Urine Negative Barbiturates Urine Positive Amphetamines Screen Urine Negative Benzodiazepines Screen Urine Cocaine Negative Screen Urine Negative Cannabinoids Test 11/02/18 11:25 11/02/18 11:38 11/02/18 11:44 11/02/18 13:04 Sodium Level 140 Potassium Level 7.3 *H Chloride Level 110 Carbon Dioxide < 5 *L Level Anion Gap 25 H Blood Urea 22 H Nitrogen Creatinine 1.06 H Est Glomerular 57 L Filtrat Rate mL/min Glucose Level 775 *H Calcium Level 11.3 H Phosphorus 10.6 H Level Magnesium Level 2.8 H Blood Gas Blood venous Specimen Source Arterial Blood 11/02/2018 12:2 Date Drawn 0:00 PM Arterial Blood VENOUS LINE Gas Puncture Site Robbin Test N/A Venous Blood pH 6.816 *L Venous Blood 10.6 L pCO2 (Temp Corrected ) Venous Blood 107.9 H pO2 (Temp Corrected ) Venous Blood 1.7 L HCO3 Venous Blood 93.2 H Oxygen Saturation Venous Blood -31.6 L Base Excess Venous Blood 13.6 Total Hemoglobin Venous Blood 92.5 Oxyhemoglobin Venous Blood 0.4 Methemoglobin Carboxyhemoglob 0.3 in Blood Gas 37.0 Temperature Blood Gas ROOM AIR Modality FiO2 21.0 Blood Gas Matilda Critical Value Read Back Blood Gas Matilda Notified Whom Blood Gas 11/02/2018 12:2 Notified Time 9:27 PM Bedside Glucose > 595 *H > 595 *H Test 11/02/18 13:40 11/02/18 15:00 11/02/18 15:16 11/02/18 16:00 Bedside Glucose > 595 *H Sodium Level 143 Potassium Level 6.0 H Chloride Level 115 H Carbon Dioxide 7 *L Level Anion Gap 21 H Blood Urea 25 H Nitrogen Creatinine 1.13 H Est Glomerular 53 L Filtrat Rate mL/min Glucose Level 634 *H Lactic Acid 4.5 *H Level Calcium Level 9.9 Phosphorus 8.2 #H Level Magnesium Level 2.7 H Thyroid 0.852 Stimulating Hormone (TSH) Urine NEGATIVE Test Blood Gas Blood Specimen arterial Source Arterial Blood 11/02/2018 3:16 Date Drawn :00 PM Arterial Blood VENOUS LINE Gas Puncture Site Robbin Test N/A Venous Blood pH 7.013 *L Venous Blood 24.8 L pCO2 (Temp Corrected ) Venous Blood 110.2 H pO2 (Temp Corrected ) Venous Blood 6.2 L HCO3 Venous Blood -23.6 L Base Excess Blood Gas A-a 218.4 O2 Differential Blood Gas 37.0 Temperature Blood Gas 30.0 Respiration Rate Blood Gas 30 Actual Respiration Rat e Blood Gas VENT - AC Modality FiO2 50.0 Blood Gas Tidal 450.0 Volume Blood Gas Low 5.0 PEEP Setting Blood Gas Mauricio MORENO RN Critical Value Read Back Blood Gas Vladimir CALLES Notified Whom Blood Gas 11/02/2018 3:35 Notified Time :00 PM Test 11/02/18 17:01 11/02/18 17:02 11/02/18 18:00 11/02/18 18:06 Sodium Level 143 Potassium Level 5.2 H Chloride Level 118 H Carbon Dioxide 11 L Level Anion Gap 14 #H Blood Urea 24 H Nitrogen Creatinine 1.03 H Est Glomerular 59 L Filtrat Rate mL/min Glucose Level 469 #*H Lactic Acid 3.8 *H Level Calcium Level 9.5 Phosphorus 4.2 # Level Magnesium Level 2.4 Bedside Glucose 461 *H 370 H Blood Gas Blood venous Specimen Source Arterial Blood 11/02/2018 6:10 Date Drawn :16 PM Arterial Blood VENOUS LINE Gas Puncture Site Robbin Test N/A Venous Blood pH 7.300 L Venous Blood 25.3 L pCO2 (Temp Corrected ) Venous Blood 69.2 H pO2 (Temp Corrected ) Venous Blood 12.2 L HCO3 Venous Blood 93.8 H Oxygen Saturation Venous Blood -12.6 L Base Excess Venous Blood 11.7 Total Hemoglobin Venous Blood 93.2 Oxyhemoglobin Venous Blood 0.3 Methemoglobin Carboxyhemoglob 0.3 in Blood Gas 37.0 Temperature Blood Gas 30.0 Respiration Rate Blood Gas 38 Actual Respiration Rat e Blood Gas VENT Modality - BIPHASIC FiO2 50.0 Blood Gas Tidal 400.0 Volume Blood Gas Low 5.0 PEEP Setting Blood Gas DT Notified Whom Blood Gas 11/02/2018 6:16 Notified Time :18 PM Test 11/02/18 18:40 11/02/18 19:03 11/02/18 19:59 11/02/18 20:30 Urine Color YELLOW Urine Clarity SLIGHTLY CLOUDY A Urine pH 5.0 Urine Specific 1.017 [place] Urine Ketones 1+ H Urine Nitrite NEGATIVE Urine Bilirubin NEGATIVE Urine NEGATIVE Urobilinogen Urine Leukocyte NEGATIVE Esterase Urine 1 Microscopic RBC Urine 2 Microscopic WBC Urine NEGATIVE Hemoglobin Urine Glucose 3+ H Urine Total NEGATIVE Protein Bedside Glucose 343 H 353 H Blood Gas Blood venous Specimen Source Arterial Blood 11/02/2018 8:40 Date Drawn :07 PM Arterial Blood VENOUS LINE Gas Puncture Site Robbin Test N/A Venous Blood pH 7.340 Venous Blood 39.4 pCO2 (Temp Corrected ) Venous Blood 59.7 H pO2 (Temp Corrected ) Venous Blood 20.8 L HCO3 Venous Blood 91.1 H Oxygen Saturation Venous Blood -4.6 Base Excess Venous Blood 11.4 Total Hemoglobin Venous Blood 90.4 Oxyhemoglobin Venous Blood 0.5 Methemoglobin Carboxyhemoglob 0.3 in Blood Gas 37.0 Temperature Blood Gas 30.0 Respiration Rate Blood Gas 30 Actual Respiration Rat e Blood Gas VENT - AC/VC+ Modality FiO2 50.0 Blood Gas 0.7 Inspiratory Time Blood Gas Tidal 400.0 Volume Blood Gas Low 5.0 PEEP Setting Blood Gas 20.0 Inspiratory Pressure Blood Gas AA Notified Whom Blood Gas 11/02/2018 8:49 Notified Time :34 PM Test 11/02/18 20:40 11/02/18 21:04 11/02/18 22:07 11/02/18 23:02 Sodium Level 143 Potassium Level 4.2 Chloride Level 119 H Carbon Dioxide 20 L Level Anion Gap 4 #L Blood Urea 22 H Nitrogen Creatinine 0.83 Est Glomerular > 60 Filtrat Rate mL/min Glucose Level 253 #H Calcium Level 9.3 Phosphorus 2.0 #L Level Magnesium Level 2.2 Bedside Glucose 240 H 239 H 240 H Test 11/03/18 00:01 11/03/18 01:03 11/03/18 02:19 11/03/18 02:59 Bedside Glucose 188 187 172 163 Test 11/03/18 03:30 11/03/18 04:01 11/03/18 05:00 11/03/18 05:15 White Blood 16.4 H Count Red Blood Count 3.48 #L Hemoglobin 10.3 #L Hematocrit 30.9 #L Mean 88.8 Corpuscular Volume Mean 29.6 Corpuscular Hemoglobin Mean 33.3 Corpuscular Hemoglobin Conc ent Red Cell 12.2 Distribution Width Platelet Count 249 # Mean Platelet 10.5 H Volume Immature 0.500 H Granulocytes % Neutrophils % 73.5 Lymphocytes % 17.2 Monocytes % 8.5 Eosinophils % 0.1 Basophils % 0.2 Nucleated Red 0.0 Blood Cells % Immature 0.090 H Granulocytes # Neutrophils # 12.1 H Lymphocytes # 2.8 Monocytes # 1.4 H Eosinophils # 0.0 Basophils # 0.0 Nucleated Red 0.0 Blood Cells # Sodium Level 145 H Potassium Level 3.5 Chloride Level 122 H Carbon Dioxide 24 Level Anion Gap -1 L Blood Urea 21 H Nitrogen Creatinine 0.79 Est Glomerular > 60 Filtrat Rate mL/min Glucose Level 162 Lactic Acid 1.1 Level Calcium Level 8.9 Phosphorus 2.5 Level Magnesium Level 2.0 Bedside Glucose 161 198 Blood Gas Blood Specimen arterial Source Arterial Blood 11/03/2018 4:50 Date Drawn :00 AM Arterial Blood 7.488 H pH (Temp corrected ) Arterial Blood 28.3 L pCO2 (Temp correct) Arterial Blood 181.7 H pO2 (Temp corrected ) Arterial Blood 21.0 L HCO3 Arterial Blood -1.4 Base Excess Arterial Blood 98.9 H Oxygen Saturati on Robbin Test ACCEPTAB Arterial Blood Right Radial Gas Puncture Site Arterial 0.3 Blood Carboxyhe moglobin Arterial Blood 0.3 Methemoglobin Blood Gas A-a 35.0 H O2 Differential Oxyhemoglobin 98.3 Percent Blood Gas 37.0 Temperature Blood Gas 30.0 Respiration Rate Blood Gas 30 Actual Respiration Rat e Blood Gas VENT - AC/VC+ Modality FiO2 35.0 Blood Gas 1.7 Inspiratory Time Blood Gas Tidal 400.0 Volume Blood Gas Low 5.0 PEEP Setting Blood Gas CD Notified Whom Blood Gas 11/03/2018 5:02 Notified Time :00 AM Test 11/03/18 06:20 11/03/18 07:11 11/03/18 07:58 11/03/18 09:05 Bedside Glucose 166 150 104 103 Subjective 24 Hr Interval Summary Free Text/Dictation Patient remains intubated and weaning down sedation. Patient out of DKA but still remains on insulin drip per ICU protocol. Exam/Review of Systems Exam Vitals Vital Signs Date Temp Pulse Resp B/P (MAP) Pulse Ox O2 O2 Flow FiO2 Time Delivery Rate 11/03/18 108 30 98/60 (73) 100 08:30 11/03/18 98.5 Mechanical 08:00 Ventilator 11/03/18 30 08:00 11/02/18 2.0 11:38 Intake and Output 11/02/18 11/02/18 11/03/18 1515:00 23:00 07:00 IntakeIntake Total 2597.091 ml 4337.749 ml 1503.589 ml OutputOutput Total 185 ml 325 ml BalanceBalance 2597.091 ml 4152.749 ml 1178.589 ml Exam General: Intubated and sedated. In no acute distress. no following commands Neck: Supple Chest: Nontender Lungs: Clear to auscultation bilaterally no crackles rales or wheezing Heart: S1, S2, regular rhythm, tachycardia, no murmurs Abdomen: Soft , nontender, nondistended , bowel sounds are present. No guarding no rebound tenderness , No masses or organomegaly. No costovertebral temporal angle mass Extremities: Normal to inspection, no edema no cyanosis Neurologic: unable to assess. remains sedated Skin: no lesions or rashes appreciated Results Results 24hrs Laboratory Tests Test 11/02/18 09:24 11/02/18 10:18 11/02/18 10:31 11/02/18 10:41 White Blood 20.4 H Count Red Blood Count 4.93 Hemoglobin 14.4 Hematocrit 49.1 H Mean 99.6 Corpuscular Volume Mean 29.2 Corpuscular Hemoglobin Mean 29.3 L Corpuscular Hemoglobin Conc ent Red Cell 12.4 Distribution Width Platelet Count 431 H Mean Platelet 11.3 H Volume Immature 0.700 H Granulocytes % Neutrophils % 88.9 H Lymphocytes % 7.8 L Monocytes % 2.3 Eosinophils % 0.0 Basophils % 0.3 Nucleated Red 0.0 Blood Cells % Immature 0.140 H Granulocytes # Neutrophils # 18.1 H Lymphocytes # 1.6 Monocytes # 0.5 Eosinophils # 0.0 Basophils # 0.1 Nucleated Red 0.0 Blood Cells # Blood Gas Blood venous Specimen Source Arterial Blood 11/02/2018 9:26: Date Drawn 21 AM Arterial Blood VENOUS LINE Gas Puncture Site Robbin Test N/A Venous Blood pH 6.959 *L Venous Blood 15.3 L pCO2 (Temp Corrected ) Venous Blood 75.3 H pO2 (Temp Corrected ) Venous Blood 3.4 L HCO3 Venous Blood 87.3 H Oxygen Saturation Venous Blood -27.1 L Base Excess Venous Blood 14.5 Total Hemoglobin Venous Blood 86.7 Oxyhemoglobin Venous Blood 0.3 Methemoglobin Carboxyhemoglob 0.4 in Blood Gas 37.0 Temperature Blood Gas ROOM AIR Modality FiO2 21.[address] EGAN Critical Value Read Back Blood Gas Matilda Notified Whom Blood Gas 11/02/2018 9:35: Notified Time 52 AM Sodium Level 137 Potassium Level 7.4 *H Chloride Level 104 Carbon Dioxide 6 *L Level Anion Gap 27 H Blood Urea 22 H Nitrogen Creatinine 1.03 H Est Glomerular 59 L Filtrat Rate mL/min Glucose Level 774 *H Hemoglobin A1c 11.3 H Calcium Level 10.3 H Phosphorus 10.1 H Level Magnesium Level 3.0 H Bedside Glucose > 595 *H POC Venous 3.2 *H Lactate Urine Color STRAW Urine Clarity CLEAR Urine pH 5.0 Urine Specific 1.021 [place] Urine Ketones 2+ H Urine Nitrite NEGATIVE Urine Bilirubin NEGATIVE Urine NEGATIVE Urobilinogen Urine Leukocyte NEGATIVE Esterase Urine 0 Microscopic RBC Urine 1 Microscopic WBC Urine Bacteria FEW A Urine Mucus FEW A Urine 1+ H Hemoglobin Urine Glucose 3+ H Urine Total NEGATIVE Protein Urine Opiates Negative Screen Urine Negative Barbiturates Urine Positive Amphetamines Screen Urine Negative Benzodiazepines Screen Urine Cocaine Negative Screen Urine Negative Cannabinoids Test 11/02/18 11:25 11/02/18 11:38 11/02/18 11:44 11/02/18 13:04 Sodium Level 140 Potassium Level 7.3 *H Chloride Level 110 Carbon Dioxide < 5 *L Level Anion Gap 25 H Blood Urea 22 H Nitrogen Creatinine 1.06 H Est Glomerular 57 L Filtrat Rate mL/min Glucose Level 775 *H Calcium Level 11.3 H Phosphorus 10.6 H Level Magnesium Level 2.8 H Blood Gas Blood venous Specimen Source Arterial Blood 11/02/2018 12:2 Date Drawn 0:00 PM Arterial Blood VENOUS LINE Gas Puncture Site Robbin Test N/A Venous Blood pH 6.816 *L Venous Blood 10.6 L pCO2 (Temp Corrected ) Venous Blood 107.9 H pO2 (Temp Corrected ) Venous Blood 1.7 L HCO3 Venous Blood 93.2 H Oxygen Saturation Venous Blood -31.6 L Base Excess Venous Blood 13.6 Total Hemoglobin Venous Blood 92.5 Oxyhemoglobin Venous Blood 0.4 Methemoglobin Carboxyhemoglob 0.3 in Blood Gas 37.0 Temperature Blood Gas ROOM AIR Modality FiO2 21.0 Blood Gas M.D. Critical Value Read Back Blood Gas M.D. Notified Whom Blood Gas 11/02/2018 12:2 Notified Time 9:27 PM Bedside Glucose > 595 *H > 595 *H Test 11/02/18 13:40 11/02/18 15:00 11/02/18 15:16 11/02/18 16:00 Bedside Glucose > 595 *H Sodium Level 143 Potassium Level 6.0 H Chloride Level 115 H Carbon Dioxide 7 *L Level Anion Gap 21 H Blood Urea 25 H Nitrogen Creatinine 1.13 H Est Glomerular 53 L Filtrat Rate mL/min Glucose Level 634 *H Lactic Acid 4.5 *H Level Calcium Level 9.9 Phosphorus 8.2 #H Level Magnesium Level 2.7 H Thyroid 0.852 Stimulating Hormone (TSH) Urine NEGATIVE Test Blood Gas Blood Specimen arterial Source Arterial Blood 11/02/2018 3:16 Date Drawn :00 PM Arterial Blood VENOUS LINE Gas Puncture Site Robbin Test N/A Venous Blood pH 7.013 *L Venous Blood 24.8 L pCO2 (Temp Corrected ) Venous Blood 110.2 H pO2 (Temp Corrected ) Venous Blood 6.2 L HCO3 Venous Blood -23.6 L Base Excess Blood Gas A-a 218.4 O2 Differential Blood Gas 37.0 Temperature Blood Gas 30.0 Respiration Rate Blood Gas 30 Actual Respiration Rat e Blood Gas VENT - AC Modality FiO2 50.0 Blood Gas Tidal 450.0 Volume Blood Gas Low 5.0 PEEP Setting Blood Gas Mauricio MORENO RN Critical Value Read Back Blood Gas Vladimir MARLI Notified Whom Blood Gas 11/02/2018 3:35 Notified Time :00 PM Test 11/02/18 17:01 11/02/18 17:02 11/02/18 18:00 11/02/18 18:06 Sodium Level 143 Potassium Level 5.2 H Chloride Level 118 H Carbon Dioxide 11 L Level Anion Gap 14 #H Blood Urea 24 H Nitrogen Creatinine 1.03 H Est Glomerular 59 L Filtrat Rate mL/min Glucose Level 469 #*H Lactic Acid 3.8 *H Level Calcium Level 9.5 Phosphorus 4.2 # Level Magnesium Level 2.4 Bedside Glucose 461 *H 370 H Blood Gas Blood venous Specimen Source Arterial Blood 11/02/2018 6:10 Date Drawn :16 PM Arterial Blood VENOUS LINE Gas Puncture Site Robbin Test N/A Venous Blood pH 7.300 L Venous Blood 25.3 L pCO2 (Temp Corrected ) Venous Blood 69.2 H pO2 (Temp Corrected ) Venous Blood 12.2 L HCO3 Venous Blood 93.8 H Oxygen Saturation Venous Blood -12.6 L Base Excess Venous Blood 11.7 Total Hemoglobin Venous Blood 93.2 Oxyhemoglobin Venous Blood 0.3 Methemoglobin Carboxyhemoglob 0.3 in Blood Gas 37.0 Temperature Blood Gas 30.0 Respiration Rate Blood Gas 38 Actual Respiration Rat e Blood Gas VENT Modality - BIPHASIC FiO2 50.0 Blood Gas Tidal 400.0 Volume Blood Gas Low 5.0 PEEP Setting Blood Gas DT Notified Whom Blood Gas 11/02/2018 6:16 Notified Time :18 PM Test 11/02/18 18:40 11/02/18 19:03 11/02/18 19:59 11/02/18 20:30 Urine Color YELLOW Urine Clarity SLIGHTLY CLOUDY A Urine pH 5.0 Urine Specific 1.017 [place] Urine Ketones 1+ H Urine Nitrite NEGATIVE Urine Bilirubin NEGATIVE Urine NEGATIVE Urobilinogen Urine Leukocyte NEGATIVE Esterase Urine 1 Microscopic RBC Urine 2 Microscopic WBC Urine NEGATIVE Hemoglobin Urine Glucose 3+ H Urine Total NEGATIVE Protein Bedside Glucose 343 H 353 H Blood Gas Blood venous Specimen Source Arterial Blood 11/02/2018 8:40 Date Drawn :07 PM Arterial Blood VENOUS LINE Gas Puncture Site Robbin Test N/A Venous Blood pH 7.340 Venous Blood 39.4 pCO2 (Temp Corrected ) Venous Blood 59.7 H pO2 (Temp Corrected ) Venous Blood 20.8 L HCO3 Venous Blood 91.1 H Oxygen Saturation Venous Blood -4.6 Base Excess Venous Blood 11.4 Total Hemoglobin Venous Blood 90.4 Oxyhemoglobin Venous Blood 0.5 Methemoglobin Carboxyhemoglob 0.3 in Blood Gas 37.0 Temperature Blood Gas 30.0 Respiration Rate Blood Gas 30 Actual Respiration Rat e Blood Gas VENT - AC/VC+ Modality FiO2 50.0 Blood Gas 0.7 Inspiratory Time Blood Gas Tidal 400.0 Volume Blood Gas Low 5.0 PEEP Setting Blood Gas 20.0 Inspiratory Pressure Blood Gas AA Notified Whom Blood Gas 11/02/2018 8:49 Notified Time :34 PM Test 11/02/18 20:40 11/02/18 21:04 11/02/18 22:07 11/02/18 23:02 Sodium Level 143 Potassium Level 4.2 Chloride Level 119 H Carbon Dioxide 20 L Level Anion Gap 4 #L Blood Urea 22 H Nitrogen Creatinine 0.83 Est Glomerular > 60 Filtrat Rate mL/min Glucose Level 253 #H Calcium Level 9.3 Phosphorus 2.0 #L Level Magnesium Level 2.2 Bedside Glucose 240 H 239 H 240 H Test 11/03/18 00:01 11/03/18 01:03 11/03/18 02:19 11/03/18 02:59 Bedside Glucose 188 187 172 163 Test 11/03/18 03:30 11/03/18 04:01 11/03/18 05:00 11/03/18 05:15 White Blood 16.4 H Count Red Blood Count 3.48 #L Hemoglobin 10.3 #L Hematocrit 30.9 #L Mean 88.8 Corpuscular Volume Mean 29.6 Corpuscular Hemoglobin Mean 33.3 Corpuscular Hemoglobin Conc ent Red Cell 12.2 Distribution Width Platelet Count 249 # Mean Platelet 10.5 H Volume Immature 0.500 H Granulocytes % Neutrophils % 73.5 Lymphocytes % 17.2 Monocytes % 8.5 Eosinophils % 0.1 Basophils % 0.2 Nucleated Red 0.0 Blood Cells % Immature 0.090 H Granulocytes # Neutrophils # 12.1 H Lymphocytes # 2.8 Monocytes # 1.4 H Eosinophils # 0.0 Basophils # 0.0 Nucleated Red 0.0 Blood Cells # Sodium Level 145 H Potassium Level 3.5 Chloride Level 122 H Carbon Dioxide 24 Level Anion Gap -1 L Blood Urea 21 H Nitrogen Creatinine 0.79 Est Glomerular > 60 Filtrat Rate mL/min Glucose Level 162 Lactic Acid 1.1 Level Calcium Level 8.9 Phosphorus 2.5 Level Magnesium Level 2.0 Bedside Glucose 161 198 Blood Gas Blood Specimen arterial Source Arterial Blood 11/03/2018 4:50 Date Drawn :00 AM Arterial Blood 7.488 H pH (Temp corrected ) Arterial Blood 28.3 L pCO2 (Temp correct) Arterial Blood 181.7 H pO2 (Temp corrected ) Arterial Blood 21.0 L HCO3 Arterial Blood -1.4 Base Excess Arterial Blood 98.9 H Oxygen Saturati on Robbin Test ACCEPTAB Arterial Blood Right Radial Gas Puncture Site Arterial 0.3 Blood Carboxyhe moglobin Arterial Blood 0.3 Methemoglobin Blood Gas A-a 35.0 H O2 Differential Oxyhemoglobin 98.3 Percent Blood Gas 37.0 Temperature Blood Gas 30.0 Respiration Rate Blood Gas 30 Actual Respiration Rat e Blood Gas VENT - AC/VC+ Modality FiO2 35.0 Blood Gas 1.7 Inspiratory Time Blood Gas Tidal 400.0 Volume Blood Gas Low 5.0 PEEP Setting Blood Gas CD Notified Whom Blood Gas 11/03/2018 5:02 Notified Time :00 AM Test 11/03/18 06:20 11/03/18 07:11 11/03/18 07:58 11/03/18 09:05 Bedside Glucose 166 150 104 103 Medications Medication Current Medications Ondansetron HCl (Zofran Inj) 4 mg Q6H PRN IV NAUSEA AND/OR VOMITING; Start 11/02/18 at 11:30 Acetaminophen (Tylenol Liquid) 650 mg Q6H PRN PO PAIN LEVEL 1-3 OR FEVER; Start 11/02/18 at 11:30 Acetaminophen/ Hydrocodone Bitart ([place] (5/325)) 1 tab Q6H PRN PO PAIN LEVEL 4-6; Start 11/02/18 at 11:30 Docusate Sodium (Colace) 100 mg Q12H PRN PO CONSTIPATION; Start 11/02/18 at 11:30 Magnesium Hydroxide (Milk Of Mag) 30 ml DAILY PRN PO CONSTIPATION; Start 11/02/18 at 11:30 Pantoprazole (Protonix Iv) 40 mg DAILY@06 IV Last administered on 11/03/18at 06:36; Admin Dose 40 MG; Start 11/03/18 at 06:00 Enoxaparin Sodium (Lovenox) 40 mg DAILY SC ; Start 11/03/18 at 09:00 Propofol 100 ml @ 1.773 mls/ hr PER PROTOCOL IV Last administered on 11/03/18at 07:22; Admin Dose 17.727 MLS/HR; Start 11/02/18 at 13:30 Fentanyl 1000 mcg/ Sodium Chloride 100 ml @ 2.5 mls/hr TITRATE IV Last adm inistered on 11/02/18at 23:06; Admin Dose 10 MLS/HR; Start 11/02/18 at 15:30 Midazolam HCl 50 ml @ 1 mls/hr TITRATE IV Last administered on 11/03/18at 02:34; Admin Dose 9 MLS/HR; Start 11/02/18 at 16:00 Metoprolol Tartrate (Lopressor) 5 mg Q6H PRN IV HR >110; Start 11/02/18 at 17:30 Diagnostic Test (Pha) (Accu-Chek) 1 ea Q1H XX Last administered on 11/03/18at 09:08; Admin Dose 1 EA; Start 11/02/18 at 22:30 Insulin Human Regular 100 unit/ Sodium Chloride 100 ml @ 0.2 mls/hr PER PROTOCOL IV Last administered on 11/02/18at 23:05; Admin Dose 0.2 MLS/HR; Start 11/02/18 at 22:30 Miscellaneous Information (* Miscellaneous Pharmacy Order) Treatment of Hypoglycemia: 1.BG 51... Per protocol XX ; Start 11/02/18 at 22:30 Dextrose (D50w Syringe) 25 ml Q15M PRN IV .DECREASED GLUCOSE; Start 11/02/18 at 22:30 Dextrose (D50w Syringe) 50 ml Q15M PRN IV .DECREASED GLUCOSE; Start 11/02/18 at 22:30 Miscellaneous Information 1 ea NOTE XX ; Start 11/02/18 at 22:30 Dextrose/Sodium Chloride 1,000 ml @ 75 mls/hr [id number] IV Last administered on 11/02/18at 23:11; Admin Dose 75 MLS/HR; Start 11/02/18 at 22:30 GOSIA PONCE MD Nov 03, 2018 09:21
[2018-11-03] MEDS: ENOXAPARIN 40 MG/0.4 ML SYG SC SCH (09:52)
--- NOTE | 2018-11-03 09:52 | CONS ---
Consult Date/Type/Reason Admit Date/Time Nov 02, 2018 at 10:29 Initial Consult Date 11/02/18 Type of Consult Pulmonary Date/Time of Note DATE: 11/03/18 TIME: 09:51 Subjective Patient remains intubated sedated on mechanical ventilation. Continues Versed and fentanyl for sedation. Currently hemodynamically stable. Objective Vital Signs Date Temp Pulse Resp B/P (MAP) Pulse Ox O2 O2 Flow FiO2 Time Delivery Rate 11/03/18 108 30 98/60 (73) 100 08:30 11/03/18 98.5 Mechanical 08:00 Ventilator 11/03/18 30 08:00 11/02/18 2.0 11:38 Intake and Output 11/02/18 11/02/18 11/03/18 1515:00 23:00 07:00 IntakeIntake Total 2597.091 ml 4337.749 ml 1503.589 ml OutputOutput Total 185 ml 325 ml BalanceBalance 2597.091 ml 4152.749 ml 1178.589 ml Exam GENERAL: Elderly appearing lady orally intubated on mechanical ventilation VITAL SIGNS: per chart NECK: Supple. No JVD or lymphadenopathy. CARDIAC EXAM: S1, S2. No added sounds or murmurs. CHEST: clear bilaterally, No added sounds, rales or wheezes ABDOMEN: Soft, nontender. No guarding or rebound. EXTREMITIES: No cyanosis, clubbing or edema. NEUROLOGIC: Generalized weakness. No focal deficits. Vent Setting Ventilator Support Mode: AC Fraction of Inspired Oxygen pe: 30 Positive End Expiratory Pressu: 5.0 Results/Medications Result Diagram: 11/03/18 0330 11/03/18 0902 Results 24 hrs Laboratory Tests Test 11/02/18 10:18 11/02/18 10:31 11/02/18 10:41 11/02/18 11:25 Bedside Glucose > 595 *H POC Venous 3.2 *H Lactate Urine Color STRAW Urine Clarity CLEAR Urine pH 5.0 Urine Specific 1.021 [place] Urine Ketones 2+ H Urine Nitrite NEGATIVE Urine Bilirubin NEGATIVE Urine NEGATIVE Urobilinogen Urine Leukocyte NEGATIVE Esterase Urine 0 Microscopic RBC Urine 1 Microscopic WBC Urine Bacteria FEW A Urine Mucus FEW A Urine 1+ H Hemoglobin Urine Glucose 3+ H Urine Total NEGATIVE Protein Urine Opiates Negative Screen Urine Negative Barbiturates Urine Positive Amphetamines Screen Urine Negative Benzodiazepines Screen Urine Cocaine Negative Screen Urine Negative Cannabinoids Sodium Level 140 Potassium Level 7.3 *H Chloride Level 110 Carbon Dioxide < 5 *L Level Anion Gap 25 H Blood Urea 22 H Nitrogen Creatinine 1.06 H Est Glomerular 57 L Filtrat Rate mL/min Glucose Level 775 *H Calcium Level 11.3 H Phosphorus 10.6 H Level Magnesium Level 2.8 H Test 11/02/18 11:38 11/02/18 11:44 11/02/18 13:04 11/02/18 13:40 Blood Gas Blood venous Specimen Source Arterial Blood 11/02/2018 12:20 Date Drawn :00 PM Arterial Blood VENOUS LINE Gas Puncture Site Robbin Test N/A Venous Blood pH 6.816 *L Venous Blood 10.6 L pCO2 (Temp Corrected ) Venous Blood 107.9 H pO2 (Temp Corrected ) Venous Blood 1.7 L HCO3 Venous Blood 93.2 H Oxygen Saturation Venous Blood -31.6 L Base Excess Venous Blood 13.6 Total Hemoglobin Venous Blood 92.5 Oxyhemoglobin Venous Blood 0.4 Methemoglobin Carboxyhemoglob 0.3 in Blood Gas 37.0 Temperature Blood Gas ROOM AIR Modality FiO2 21.0 Blood Gas M.D. Critical Value Read Back Blood Gas M.D. Notified Whom Blood Gas 11/02/2018 12:29 Notified Time :27 PM Bedside Glucose > 595 *H > 595 *H > 595 *H Test 11/02/18 15:00 11/02/18 15:16 11/02/18 16:00 11/02/18 17:01 Sodium Level 143 143 Potassium Level 6.0 H 5.2 H Chloride Level 115 H 118 H Carbon Dioxide 7 *L 11 L Level Anion Gap 21 H 14 #H Blood Urea 25 H 24 H Nitrogen Creatinine 1.13 H 1.03 H Est Glomerular 53 L 59 L Filtrat Rate mL/min Glucose Level 634 *H 469 #*H Lactic Acid 4.5 *H 3.8 *H Level Calcium Level 9.9 9.5 Phosphorus 8.2 #H 4.2 # Level Magnesium Level 2.7 H 2.4 Thyroid 0.852 Stimulating Hormone (TSH) Urine NEGATIVE Test Blood Gas Blood Specimen arterial Source Arterial Blood 11/02/2018 3:16 Date Drawn :00 PM Arterial Blood VENOUS LINE Gas Puncture Site Robbin Test N/A Venous Blood pH 7.013 *L Venous Blood 24.8 L pCO2 (Temp Corrected ) Venous Blood 110.2 H pO2 (Temp Corrected ) Venous Blood 6.2 L HCO3 Venous Blood -23.6 L Base Excess Blood Gas A-a 218.4 O2 Differential Blood Gas 37.0 Temperature Blood Gas 30.0 Respiration Rate Blood Gas 30 Actual Respiration Rat e Blood Gas VENT - AC Modality FiO2 50.0 Blood Gas Tidal 450.0 Volume Blood Gas Low 5.0 PEEP Setting Blood Gas Mauricio MORENO RN Critical Value Read Back Blood Gas Vladimir CALLES Notified Whom Blood Gas 11/02/2018 3:35 Notified Time :00 PM Test 11/02/18 17:02 11/02/18 18:00 11/02/18 18:06 11/02/18 18:40 Bedside Glucose 461 *H 370 H Blood Gas Blood venous Specimen Source Arterial Blood 11/02/2018 6:10 Date Drawn :16 PM Arterial Blood VENOUS LINE Gas Puncture Site Robbin Test N/A Venous Blood pH 7.300 L Venous Blood 25.3 L pCO2 (Temp Corrected ) Venous Blood 69.2 H pO2 (Temp Corrected ) Venous Blood 12.2 L HCO3 Venous Blood 93.8 H Oxygen Saturation Venous Blood -12.6 L Base Excess Venous Blood 11.7 Total Hemoglobin Venous Blood 93.2 Oxyhemoglobin Venous Blood 0.3 Methemoglobin Carboxyhemoglob 0.3 in Blood Gas 37.0 Temperature Blood Gas 30.0 Respiration Rate Blood Gas 38 Actual Respiration Rat e Blood Gas VENT Modality - BIPHASIC FiO2 50.0 Blood Gas Tidal 400.0 Volume Blood Gas Low 5.0 PEEP Setting Blood Gas DT Notified Whom Blood Gas 11/02/2018 6:16 Notified Time :18 PM Urine Color YELLOW Urine Clarity SLIGHTLY CLOUD Y A Urine pH 5.0 Urine Specific 1.017 [place] Urine Ketones 1+ H Urine Nitrite NEGATIVE Urine Bilirubin NEGATIVE Urine NEGATIVE Urobilinogen Urine Leukocyte NEGATIVE Esterase Urine 1 Microscopic RBC Urine 2 Microscopic WBC Urine NEGATIVE Hemoglobin Urine Glucose 3+ H Urine Total NEGATIVE Protein Test 11/02/18 19:03 11/02/18 19:59 11/02/18 20:30 11/02/18 20:40 Bedside Glucose 343 H 353 H Blood Gas Blood venous Specimen Source Arterial Blood 11/02/2018 8:40 Date Drawn :07 PM Arterial Blood VENOUS LINE Gas Puncture Site Robbin Test N/A Venous Blood pH 7.340 Venous Blood 39.4 pCO2 (Temp Corrected ) Venous Blood 59.7 H pO2 (Temp Corrected ) Venous Blood 20.8 L HCO3 Venous Blood 91.1 H Oxygen Saturation Venous Blood -4.6 Base Excess Venous Blood 11.4 Total Hemoglobin Venous Blood 90.4 Oxyhemoglobin Venous Blood 0.5 Methemoglobin Carboxyhemoglob 0.3 in Blood Gas 37.0 Temperature Blood Gas 30.0 Respiration Rate Blood Gas 30 Actual Respiration Rat e Blood Gas VENT - AC/VC+ Modality FiO2 50.0 Blood Gas 0.7 Inspiratory Time Blood Gas Tidal 400.0 Volume Blood Gas Low 5.0 PEEP Setting Blood Gas 20.0 Inspiratory Pressure Blood Gas AA Notified Whom Blood Gas 11/02/2018 8:49 Notified Time :34 PM Sodium Level 143 Potassium Level 4.2 Chloride Level 119 H Carbon Dioxide 20 L Level Anion Gap 4 #L Blood Urea 22 H Nitrogen Creatinine 0.83 Est Glomerular > 60 Filtrat Rate mL/min Glucose Level 253 #H Calcium Level 9.3 Phosphorus 2.0 #L Level Magnesium Level 2.2 Test 11/02/18 21:04 11/02/18 22:07 11/02/18 23:02 11/03/18 00:01 Bedside Glucose 240 H 239 H 240 H 188 Test 11/03/18 01:03 11/03/18 02:19 11/03/18 02:59 11/03/18 03:30 Bedside Glucose 187 172 163 White Blood 16.4 H Count Red Blood Count 3.48 #L Hemoglobin 10.3 #L Hematocrit 30.9 #L Mean 88.8 Corpuscular Volume Mean 29.6 Corpuscular Hemoglobin Mean 33.3 Corpuscular Hemoglobin Conc ent Red Cell 12.2 Distribution Width Platelet Count 249 # Mean Platelet 10.5 H Volume Immature 0.500 H Granulocytes % Neutrophils % 73.5 Lymphocytes % 17.2 Monocytes % 8.5 Eosinophils % 0.1 Basophils % 0.2 Nucleated Red 0.0 Blood Cells % Immature 0.090 H Granulocytes # Neutrophils # 12.1 H Lymphocytes # 2.8 Monocytes # 1.4 H Eosinophils # 0.0 Basophils # 0.0 Nucleated Red 0.0 Blood Cells # Sodium Level 145 H Potassium Level 3.5 Chloride Level 122 H Carbon Dioxide 24 Level Anion Gap -1 L Blood Urea 21 H Nitrogen Creatinine 0.79 Est Glomerular > 60 Filtrat Rate mL/min Glucose Level 162 Lactic Acid 1.1 Level Calcium Level 8.9 Phosphorus 2.5 Level Magnesium Level 2.0 Test 11/03/18 04:01 11/03/18 05:00 11/03/18 05:15 11/03/18 06:20 Bedside Glucose 161 198 166 Blood Gas Blood Specimen arterial Source Arterial Blood 11/03/2018 4:50 Date Drawn :00 AM Arterial Blood 7.488 H pH (Temp corrected ) Arterial Blood 28.3 L pCO2 (Temp correct) Arterial Blood 181.7 H pO2 (Temp corrected ) Arterial Blood 21.0 L HCO3 Arterial Blood -1.4 Base Excess Arterial Blood 98.9 H Oxygen Saturati on Robbin Test ACCEPTAB Arterial Blood Right Radial Gas Puncture Site Arterial 0.3 Blood Carboxyhe moglobin Arterial Blood 0.3 Methemoglobin Blood Gas A-a 35.0 H O2 Differential Oxyhemoglobin 98.3 Percent Blood Gas 37.0 Temperature Blood Gas 30.0 Respiration Rate Blood Gas 30 Actual Respiration Rat e Blood Gas VENT - AC/VC+ Modality FiO2 35.0 Blood Gas 1.7 Inspiratory Time Blood Gas Tidal 400.0 Volume Blood Gas Low 5.0 PEEP Setting Blood Gas CD Notified Whom Blood Gas 11/03/2018 5:02 Notified Time :00 AM Test 11/03/18 07:11 11/03/18 07:58 11/03/18 09:02 11/03/18 09:05 Bedside Glucose 150 104 103 Sodium Level 145 H Potassium Level 3.8 Chloride Level 118 H Carbon Dioxide 23 Level Anion Gap 4 L Blood Urea 21 H Nitrogen Creatinine 0.84 Est Glomerular > 60 Filtrat Rate mL/min Glucose Level 120 # Calcium Level 9.0 Phosphorus 2.7 Level Magnesium Level 2.1 Medications Current Medications Ondansetron HCl (Zofran Inj) 4 mg Q6H PRN IV NAUSEA AND/OR VOMITING; Start 11/02/18 at 11:30 Acetaminophen (Tylenol Liquid) 650 mg Q6H PRN PO PAIN LEVEL 1-3 OR FEVER; Start 11/02/18 at 11:30 Acetaminophen/ Hydrocodone Bitart ([place] (5/325)) 1 tab Q6H PRN PO PAIN LEVEL 4-6; Start 11/02/18 at 11:30 Docusate Sodium (Colace) 100 mg Q12H PRN PO CONSTIPATION; Start 11/02/18 at 11:30 Magnesium Hydroxide (Milk Of Mag) 30 ml DAILY PRN PO CONSTIPATION; Start 11/02/18 at 11:30 Pantoprazole (Protonix Iv) 40 mg DAILY@06 IV Last administered on 11/03/18at 06:36; Admin Dose 40 MG; Start 11/03/18 at 06:00 Enoxaparin Sodium (Lovenox) 40 mg DAILY SC ; Start 11/03/18 at 09:00 Propofol 100 ml @ 1.773 mls/ hr PER PROTOCOL IV Last administered on 11/03/18at 07:22; Admin Dose 17.727 MLS/HR; Start 11/02/18 at 13:30 Fentanyl 1000 mcg/ Sodium Chloride 100 ml @ 2.5 mls/hr TITRATE IV Last a dministered on 11/02/18at 23:06; Admin Dose 10 MLS/HR; Start 11/02/18 at 15:30 Midazolam HCl 50 ml @ 1 mls/hr TITRATE IV Last administered on 11/03/18at 02:34; Admin Dose 9 MLS/HR; Start 11/02/18 at 16:00 Metoprolol Tartrate (Lopressor) 5 mg Q6H PRN IV HR >110; Start 11/02/18 at 17:30 Diagnostic Test (Pha) (Accu-Chek) 1 ea Q1H XX Last administered on 11/03/18at 09:08; Admin Dose 1 EA; Start 11/02/18 at 22:30 Insulin Human Regular 100 unit/ Sodium Chloride 100 ml @ 0.2 mls/hr PER PROTOCOL IV Last administered on 11/02/18at 23:05; Admin Dose 0.2 MLS/HR; Start 11/02/18 at 22:30 Miscellaneous Information (* Miscellaneous Pharmacy Order) Treatment of Hypoglycemia: 1.BG 51... Per protocol XX ; Start 11/02/18 at 22:30 Dextrose (D50w Syringe) 25 ml Q15M PRN IV .DECREASED GLUCOSE; Start 11/02/18 at 22:30 Dextrose (D50w Syringe) 50 ml Q15M PRN IV .DECREASED GLUCOSE; Start 11/02/18 at 22:30 Miscellaneous Information 1 ea NOTE XX ; Start 11/02/18 at 22:30 Dextrose/Sodium Chloride 1,000 ml @ 75 mls/hr [id number] IV Last administered on 11/02/18at 23:11; Admin Dose 75 MLS/HR; Start 11/02/18 at 22:30 Assessment/Plan Hospital Course (Demo Recall) IMP: 1. Severe DKA 2. Severe Anion Gap Metabolic Acidosis 2/2 #1 3. Pre-renal azotemia 4. Resp Failure 2/2 severe acidemia 5. HyperK+ 2/2 #1 6. Possible substance abuse and noncompliance RECS: 1. Continue fluid resuscitation 2. Insulin gtt 3. Panculture; serial troponins 4. check TSH 5. Start tube feeding 6. D/C abx 7. DVT and GI prophy 8. Continue mechanical ventilation Critical care time 40 minutes. FILIPPO ROLDAN MD, [facility] Nov 03, 2018 09:52
[2018-11-03] MEDS: FENTAnyl 1,000 MCG in SOD CHLORIDE 0.9% 80 ML IV SCH (09:58)
--- NOTE | 2018-11-03 12:23 | CONS ---
Assessment/Plan Assessment/Plan Problems: (1) Diabetes mellitus type 1 Status: Acute Comment: We are suffering from a lack of database in this young lady. We will try and get that once the patient is extubated. In the meantime she is stable and out of DKA following the protocols and policies of the institution. Continue with this. Please note she is about to get started on tube feedings using NG tube will continue using the protocol to cover for that source of nutrition. Once she is successfully extubated I will try to do what I can to see by getting her back on an insulin pump and communicate with her primary care physicians Qualifiers: Qualified Codes: E10.9 - Type 1 diabetes mellitus without complications (2) Diabetic ketoacidosis Status: Resolved Comment: Out of DKA Qualifiers: Qualified Codes: E10.10 - Type 1 diabetes mellitus with ketoacidosis without coma (3) Acute kidney injury Status: Acute Comment: Clearing up nicely Consultation Date/Type/Reason Admit Date/Time Nov 02, 2018 at 10:29 Date of Consultation: Nov 03, 2018 Type of Consult Endocrinology Reason for Consultation Diabetes mellitus type 1 33 years duration; DKA with significant acidosis; initially lack of database Requesting Provider: GOSIA PONCE MD Date/Time of Note DATE: 11/03/18 TIME: 12:19 Hx of Present Illness 42-year-old female admitted to the facility in diabetic ketoacidosis with significant acid-base derangement. She had previously been followed by a number of different bilingual trainer and was actually on an insulin pump and quite active. She had been living with her father who is paying for her health insurance. Apparently her old pump or out and she had a new pump delivered to her father's home. He however in April and the pupil clean at that house seem to have accidentally disposed of the new device. Patient's been self modulating by insulin injection and since April has had 3 episodes of DKA requiring hospitalization this being the third time. Please note that this information is from the patient's mother who has a somewhat limited database. Subjective hx not possible: pt non-verbal, pt critical status Past Medical History Medical History: diabetes (Diabetes mellitus type 1 of 33 years duration without known complications), other ( Ab0) Home Meds Unable to Obtain Active Prescriptions or Reported Meds Medications Current Medications Ondansetron HCl (Zofran Inj) 4 mg Q6H PRN IV NAUSEA AND/OR VOMITING; Start 11/02/18 at 11:30 Acetaminophen (Tylenol Liquid) 650 mg Q6H PRN PO PAIN LEVEL 1-3 OR FEVER; Start 11/02/18 at 11:30 Acetaminophen/ Hydrocodone Bitart ([place] (5/325)) 1 tab Q6H PRN PO PAIN LEVEL 4-6; Start 11/02/18 at 11:30 Docusate Sodium (Colace) 100 mg Q12H PRN PO CONSTIPATION; Start 11/02/18 at 11:30 Magnesium Hydroxide (Milk Of Mag) 30 ml DAILY PRN PO CONSTIPATION; Start 11/02/18 at 11:30 Pantoprazole (Protonix Iv) 40 mg DAILY@06 IV Last administered on 11/03/18at 06:36; Admin Dose 40 MG; Start 11/03/18 at 06:00 Enoxaparin Sodium (Lovenox) 40 mg DAILY SC Last administered on 11/03/18 09:52; Admin Dose 40 MG; Start 11/03/18 at 09:00 Propofol 100 ml @ 1.773 mls/ hr PER PROTOCOL IV Last administered on 11/03/18 07:22; Admin Dose 17.727 MLS/HR; Start 11/02/18 at 13:30 Fentanyl 1000 mcg/ Sodium Chloride 100 ml @ 2.5 mls/hr TITRATE IV Last administered on 11/03/18at 09:58; Admin Dose 5 MLS/HR; Start 11/02/18 at 15:30 Midazolam HCl 50 ml @ 1 mls/hr TITRATE IV Last administered on 11/03/18at 02:34; Admin Dose 9 MLS/HR; Start 11/02/18 at 16:00 Metoprolol Tartrate (Lopressor) 5 mg Q6H PRN IV HR >110; Start 11/02/18 at 17:30 Diagnostic Test (Pha) (Accu-Chek) 1 ea Q1H XX Last administered on 11/03/18 11:31; Admin Dose 1 EA; Start 11/02/18 at 22:30 Insulin Human Regular 100 unit/ Sodium Chloride 100 ml @ 0.2 mls/hr PER PROTOCOL IV Last administered on 11/02/18at 23:05; Admin Dose 0.2 MLS/HR; Start 11/02/18 at 22:30 Miscellaneous Information (* Miscellaneous Pharmacy Order) Treatment of Hypoglycemia: 1.BG 51... Per protocol XX ; Start 11/02/18 at 22:30 Dextrose (D50w Syringe) 25 ml Q15M PRN IV .DECREASED GLUCOSE; Start 11/02/18 at 22:30 Dextrose (D50w Syringe) 50 ml Q15M PRN IV .DECREASED GLUCOSE; Start 11/02/18 at 22:30 Miscellaneous Information 1 ea NOTE XX ; Start 11/02/18 at 22:30 Dextrose/Sodium Chloride 1,000 ml @ 75 mls/hr [id number] IV Last administered on 11/02/18at 23:11; Admin Dose 75 MLS/HR; Start 11/02/18 at 22:30 Allergies: Coded Allergies: No Known Allergy (Unverified , 11/02/18) Past Surgical History Past Surgical Hx: no surgical history, other (breast implants) Family History Significant Family History: hypertension Social History Alcohol Use: other (unknown) Smoking Status: Former smoker Drug Use: other (Mother denies this but the patient's tox screen should be looked at) Exam/Review of Systems Exam Vitals Vital Signs Date Temp Pulse Resp B/P (MAP) Pulse Ox O2 O2 Flow FiO2 Time Delivery Rate 11/03/18 116 20 100 30 11:03 11/03/18 139/68 10:30 (91) 11/03/18 Mechanical 10:00 Ventilator 11/03/18 98.5 08:00 11/02/18 2.0 11:38 Intake and Output 11/02/18 11/02/18 11/03/18 1515:00 23:00 07:00 IntakeIntake Total 2597.091 ml 4337.749 ml 1503.589 ml OutputOutput Total 185 ml 325 ml BalanceBalance 2597.091 ml 4152.749 ml 1178.589 ml Constitutional: non-verbal ENMT: intubated (And sedated) Respiratory: clear to auscultation, normal air movement Cardiovascular: regular rate and rhythm, nl pulses Gastrointestinal: soft, nl liver, spleen, non-tender Results Result Diagram: 11/03/18 0330 11/03/18 0902 Results 24hrs Laboratory Tests Test 11/02/18 13:04 11/02/18 13:40 11/02/18 15:00 11/02/18 15:16 Bedside Glucose > 595 *H > 595 *H Sodium Level 143 Potassium Level 6.0 H Chloride Level 115 H Carbon Dioxide 7 *L Level Anion Gap 21 H Blood Urea 25 H Nitrogen Creatinine 1.13 H Est Glomerular 53 L Filtrat Rate mL/min Glucose Level 634 *H Lactic Acid 4.5 *H Level Calcium Level 9.9 Phosphorus 8.2 #H Level Magnesium Level 2.7 H Thyroid 0.852 Stimulating Hormone (TSH) Urine NEGATIVE Test Test 11/02/18 16:00 11/02/18 17:01 11/02/18 17:02 11/02/18 18:00 Blood Gas Blood arterial Blood venous Specimen Source Arterial Blood 11/02/2018 3:16: 11/02/2018 6:10 Date Drawn 00 PM :16 PM Arterial Blood VENOUS LINE VENOUS LINE Gas Puncture Site Robbin Test N/A N/A Venous Blood pH 7.013 *L 7.300 L Venous Blood 24.8 L 25.3 L pCO2 (Temp Corrected ) Venous Blood 110.2 H 69.2 H pO2 (Temp Corrected ) Venous Blood 6.2 L 12.2 L HCO3 Venous Blood -23.6 L -12.6 L Base Excess Blood Gas A-a 218.4 O2 Differential Blood Gas 37.0 37.0 Temperature Blood Gas 30.0 30.0 Respiration Rate Blood Gas 30 38 Actual Respiration Rat e Blood Gas VENT - AC VENT Modality - BIPHASIC FiO2 50.0 50.0 Blood Gas Tidal 450.0 400.0 Volume Blood Gas Low 5.0 5.0 PEEP Setting Blood Gas Mauricio MORENO RN Critical Value Read Back Blood Gas Vladimir KESSLER Notified Whom Blood Gas 11/02/2018 3:35: 11/02/2018 6:16 Notified Time 00 PM :18 PM Sodium Level 143 Potassium Level 5.2 H Chloride Level 118 H Carbon Dioxide 11 L Level Anion Gap 14 #H Blood Urea 24 H Nitrogen Creatinine 1.03 H Est Glomerular 59 L Filtrat Rate mL/min Glucose Level 469 #*H Lactic Acid 3.8 *H Level Calcium Level 9.5 Phosphorus 4.2 # Level Magnesium Level 2.4 Bedside Glucose 461 *H Venous Blood 93.8 H Oxygen Saturation Venous Blood 11.7 Total Hemoglobin Venous Blood 93.2 Oxyhemoglobin Venous Blood 0.3 Methemoglobin Carboxyhemoglob 0.3 in Test 11/02/18 18:06 11/02/18 18:40 11/02/18 19:03 11/02/18 19:59 Bedside Glucose 370 H 343 H 353 H Urine Color YELLOW Urine Clarity SLIGHTLY CLOUDY A Urine pH 5.0 Urine Specific 1.017 [place] Urine Ketones 1+ H Urine Nitrite NEGATIVE Urine Bilirubin NEGATIVE Urine NEGATIVE Urobilinogen Urine Leukocyte NEGATIVE Esterase Urine 1 Microscopic RBC Urine 2 Microscopic WBC Urine NEGATIVE Hemoglobin Urine Glucose 3+ H Urine Total NEGATIVE Protein Test 11/02/18 20:30 11/02/18 20:40 11/02/18 21:04 11/02/18 22:07 Blood Gas Blood venous Specimen Source Arterial Blood 11/02/2018 8:40: Date Drawn 07 PM Arterial Blood VENOUS LINE Gas Puncture Site Robbin Test N/A Venous Blood pH 7.340 Venous Blood 39.4 pCO2 (Temp Corrected ) Venous Blood 59.7 H pO2 (Temp Corrected ) Venous Blood 20.8 L HCO3 Venous Blood 91.1 H Oxygen Saturation Venous Blood -4.6 Base Excess Venous Blood 11.4 Total Hemoglobin Venous Blood 90.4 Oxyhemoglobin Venous Blood 0.5 Methemoglobin Carboxyhemoglob 0.3 in Blood Gas 37.0 Temperature Blood Gas 30.0 Respiration Rate Blood Gas 30 Actual Respiration Rat e Blood Gas VENT - AC/VC+ Modality FiO2 50.0 Blood Gas 0.7 Inspiratory Time Blood Gas Tidal 400.0 Volume Blood Gas Low 5.0 PEEP Setting Blood Gas 20.0 Inspiratory Pressure Blood Gas AA Notified Whom Blood Gas 11/02/2018 8:49: Notified Time 34 PM Sodium Level 143 Potassium Level 4.2 Chloride Level 119 H Carbon Dioxide 20 L Level Anion Gap 4 #L Blood Urea 22 H Nitrogen Creatinine 0.83 Est Glomerular > 60 Filtrat Rate mL/min Glucose Level 253 #H Calcium Level 9.3 Phosphorus 2.0 #L Level Magnesium Level 2.2 Bedside Glucose 240 H 239 H Test 11/02/18 23:02 11/03/18 00:01 11/03/18 01:03 11/03/18 02:19 Bedside Glucose 240 H 188 187 172 Test 11/03/18 02:59 11/03/18 03:30 11/03/18 04:01 11/03/18 05:00 Bedside Glucose 163 161 White Blood 16.4 H Count Red Blood Count 3.48 #L Hemoglobin 10.3 #L Hematocrit 30.9 #L Mean 88.8 Corpuscular Volume Mean 29.6 Corpuscular Hemoglobin Mean 33.3 Corpuscular Hemoglobin Conc ent Red Cell 12.2 Distribution Width Platelet Count 249 # Mean Platelet 10.5 H Volume Immature 0.500 H Granulocytes % Neutrophils % 73.5 Lymphocytes % 17.2 Monocytes % 8.5 Eosinophils % 0.1 Basophils % 0.2 Nucleated Red 0.0 Blood Cells % Immature 0.090 H Granulocytes # Neutrophils # 12.1 H Lymphocytes # 2.8 Monocytes # 1.4 H Eosinophils # 0.0 Basophils # 0.0 Nucleated Red 0.0 Blood Cells # Sodium Level 145 H Potassium Level 3.5 Chloride Level 122 H Carbon Dioxide 24 Level Anion Gap -1 L Blood Urea 21 H Nitrogen Creatinine 0.79 Est Glomerular > 60 Filtrat Rate mL/min Glucose Level 162 Lactic Acid 1.1 Level Calcium Level 8.9 Phosphorus 2.5 Level Magnesium Level 2.0 Blood Gas Blood Specimen arterial Source Arterial Blood 11/03/2018 4:50 Date Drawn :00 AM Arterial Blood 7.488 H pH (Temp corrected ) Arterial Blood 28.3 L pCO2 (Temp correct) Arterial Blood 181.7 H pO2 (Temp corrected ) Arterial Blood 21.0 L HCO3 Arterial Blood -1.4 Base Excess Arterial Blood 98.9 H Oxygen Saturati on Robbin Test ACCEPTAB Arterial Blood Right Radial Gas Puncture Site Arterial 0.3 Blood Carboxyhe moglobin Arterial Blood 0.3 Methemoglobin Blood Gas A-a 35.0 H O2 Differential Oxyhemoglobin 98.3 Percent Blood Gas 37.0 Temperature Blood Gas 30.0 Respiration Rate Blood Gas 30 Actual Respiration Rat e Blood Gas VENT - AC/VC+ Modality FiO2 35.0 Blood Gas 1.7 Inspiratory Time Blood Gas Tidal 400.0 Volume Blood Gas Low 5.0 PEEP Setting Blood Gas CD Notified Whom Blood Gas 11/03/2018 5:02 Notified Time :00 AM Test 11/03/18 05:15 11/03/18 06:20 11/03/18 07:11 11/03/18 07:58 Bedside Glucose 198 166 150 104 Test 11/03/18 09:02 11/03/18 09:05 11/03/18 10:30 11/03/18 11:31 Sodium Level 145 H Potassium Level 3.8 Chloride Level 118 H Carbon Dioxide 23 Level Anion Gap 4 L Blood Urea 21 H Nitrogen Creatinine 0.84 Est Glomerular > 60 Filtrat Rate mL/min Glucose Level 120 # Calcium Level 9.0 Phosphorus 2.7 Level Magnesium Level 2.1 Bedside Glucose 103 144 164 Medications Medication Current Medications Ondansetron HCl (Zofran Inj) 4 mg Q6H PRN IV NAUSEA AND/OR VOMITING; Start 11/02/18 at 11:30 Acetaminophen (Tylenol Liquid) 650 mg Q6H PRN PO PAIN LEVEL 1-3 OR FEVER; Start 11/02/18 at 11:30 Acetaminophen/ Hydrocodone Bitart ([place] (5/325)) 1 tab Q6H PRN PO PAIN LEVEL 4-6; Start 11/02/18 at 11:30 Docusate Sodium (Colace) 100 mg Q12H PRN PO CONSTIPATION; Start 11/02/18 at 11:30 Magnesium Hydroxide (Milk Of Mag) 30 ml DAILY PRN PO CONSTIPATION; Start 11/02/18 at 11:30 Pantoprazole (Protonix Iv) 40 mg DAILY@06 IV Last administered on 11/03/18at 06:36; Admin Dose 40 MG; Start 11/03/18 at 06:00 Enoxaparin Sodium (Lovenox) 40 mg DAILY SC Last administered on 11/03/18at 09:52; Admin Dose 40 MG; Start 11/03/18 at 09:00 Propofol 100 ml @ 1.773 mls/ hr PER PROTOCOL IV Last administered on 11/03/18at 07:22; Admin Dose 17.727 MLS/HR; Start 11/02/18 at 13:30 Fentanyl 1000 mcg/ Sodium Chloride 100 ml @ 2.5 mls/hr TITRATE IV Last administered on 11/03/18at 09:58; Admin Dose 5 MLS/HR; Start 11/02/18 at 15:30 Midazolam HCl 50 ml @ 1 mls/hr TITRATE IV Last administered on 11/03/18at 02:34; Admin Dose 9 MLS/HR; Start 11/02/18 at 16:00 Metoprolol Tartrate (Lopressor) 5 mg Q6H PRN IV HR >110; Start 11/02/18 at 17:3 0 Diagnostic Test (Pha) (Accu-Chek) 1 ea Q1H XX Last administered on 11/03/18at 11:31; Admin Dose 1 EA; Start 11/02/18 at 22:30 Insulin Human Regular 100 unit/ Sodium Chloride 100 ml @ 0.2 mls/hr PER PROTOCOL IV Last administered on 11/02/18at 23:05; Admin Dose 0.2 MLS/HR; Start 11/02/18 at 22:30 Miscellaneous Information (* Miscellaneous Pharmacy Order) Treatment of Hypoglycemia: 1.BG 51... Per protocol XX ; Start 11/02/18 at 22:30 Dextrose (D50w Syringe) 25 ml Q15M PRN IV .DECREASED GLUCOSE; Start 11/02/18 at 22:30 Dextrose (D50w Syringe) 50 ml Q15M PRN IV .DECREASED GLUCOSE; Start 11/02/18 at 22:30 Miscellaneous Information 1 ea NOTE XX ; Start 11/02/18 at 22:30 Dextrose/Sodium Chloride 1,000 ml @ 75 mls/hr [id number] IV Last administered on 11/02/18at 23:11; Admin Dose 75 MLS/HR; Start 11/02/18 at 22:30 AMIRA REA MD Nov 03, 2018 12:23
[2018-11-03] MEDS: DEXTROSE 5%-0.45% NACL 1,000 ML IV SCH (12:47)
--- NOTE | 2018-11-03 16:46 | RADRPT ---
Echocardiogram Report Patient Name: AKOSUA ORTIZPatient ID: [id number] : 1975 (42y 10m)Study Date: 11/03/2018 8:17:46 AM Gender: FAccession #: [id number] Tech: Mauricio Rivera BAYRON Location: 112 Ref.Physician: GOSIA PONCE Height(Cm): BSA: Weight(Kg): Quality: AdequateAccount #: Procedures: Echocardiographic Report: Transthoracic echocardiogram with complete 2D, M-Mode, and doppler examination. Indications: Tachycardia. Measurements: 2D/M Mode Doppler Measurement Value Normal Range Measurement Value Normal Range LVIDd 2D 4.0 [ 3.8 - 5.2 ] cm AV Peak Miguel 1.5 [ 100.0 - 170.0 ] cm/sec LVIDs 2D 2.3 [ 2.2 - 3.5 ] cm AV Peak PG 8.0 [ 2.0 - 9.0 ] mmHg LVPWd 2D 0.8 [ 0.6 - 0.9 ] cm LVOT Peak Miguel 1.1 [ 70.0 - 110.0 ] cm/sec IVSd 2D 0.8 [ 0.6 - 0.9 ] cm LVOT Peak PG 5.0 [ 2.0 - 6.0 ] mmHg AoR Diam 2D 2.3 [ 2.3 - 3.1 ] cm Lat E` Miguel 0.2 [ 10.0 - 15.0 ] cm/sec EDV 2D 71.7 [ 46.0 - 106.0 ] ml TR Peak Miguel 2.7 [ 100.0 - 280.0 ] cm/sec ESV 2D 19.1 [ 14.0 - 42.0 ] ml TR Peak PG 29.0 mmHg EF 2D 73.4 [ 54.0 - 74.0 ] percent RVSP 37.0 [ 10.0 - 36.0 ] mmHg LA Dimen 2D 2.4 [ 2.7 - 3.8 ] cm RA Pressure 8.0 mmHg Findings: Left Ventricle: Normal left ventricular systolic function. Normal left ventricular cavity size. Normal left ventricular wall thickness. Ejection fraction is visually estimated at 55 %. Right Ventricle: Normal right ventricular size. Normal right ventricular systolic function. Left Atrium: The left atrium is normal in size. Right Atrium: The right atrium is normal in size. Mitral Valve: Mitral valve leaflets appear mildly thickened. Mild mitral annular calcification. Trace mitral regurgitation. Aortic Valve: Normal appearance of the aortic valve. No significant aortic stenosis or insufficiency. Tricuspid Valve: Normal appearance and function of the tricuspid valve with trace physiologic regurgitation. Normal right ventricular systolic pressure. Pulmonic Valve: Normal pulmonic valve appearance. Pericardium: Normal pericardium with no significant pericardial effusion. Aorta: Normal aortic root. IVC: Inferior vena cava without respiratory collapse, however, patient on ventilator. Conclusions: Normal left ventricular systolic function. Normal left ventricular cavity size. Normal left ventricular wall thickness. Ejection fraction is visually estimated at 55 %. Mitral valve leaflets appear mildly thickened. Mild mitral annular calcification. Trace mitral regurgitation. Normal appearance and function of the tricuspid valve with trace physiologic regurgitation. Normal right ventricular systolic pressure. Electronically Signed By: Rome Nagel 2018-11-03 16:46:19 PST
[2018-11-03] MEDS: ACETAMINOPHEN 650MG/20.3ML CUP PO PRN (17:40)
[2018-11-03] MEDS: DEXTROSE 50% 50 ML SYRINGE IV PRN ×2 (19:42→20:25)
[2018-11-04] VITALS (69 sets, daily range): BP systolic 76–158; BP diastolic 48–98; PULSE 81–123; RESP 15–23
[2018-11-04] MEDS: ACCU-CHEK XX SCH ×24 (00:22→23:51)
[2018-11-04] MEDS: DEXTROSE 5%-0.45% NACL 1,000 ML IV SCH ×2 (01:16→15:09)
[2018-11-04] MEDS: INSULIN HUMAN REGULAR 100 UNIT in SOD CHLORIDE 0.9% 99 ML IV SCH (01:25)
[2018-11-04] MEDS: PROPOFOL 100 ML IV SCH ×3 (01:37→21:56)
[2018-11-04] MEDS: MIDAZOLAM (DRIP) 50 mg/50 mL 50 ML IV SCH (03:04)
[2018-11-04] MEDS: FENTAnyl 1,000 MCG in SOD CHLORIDE 0.9% 80 ML IV SCH ×2 (03:10→18:26)
[2018-11-04] MEDS: PANTOPRAZOLE 40 MG INJ IV SCH (06:11)
[2018-11-04] MEDS: POTASSIUM CHLORIDE 50 ML IVPB SCH ×2 (06:54→09:31)
[2018-11-04] MEDS ORDERED: POTASSIUM CHLORIDE 20 MEQ POWDER FOR ORAL SOLN NGT ONE (07:00)
[2018-11-04] MEDS ORDERED: MAGNESIUM OXIDE 400 MG TAB NGT SCH (07:00)
[2018-11-04] MEDS: ENOXAPARIN 40 MG/0.4 ML SYG SC SCH (08:40)
--- NOTE | 2018-11-04 10:23 | CONS ---
Consult Date/Type/Reason Admit Date/Time Nov 02, 2018 at 10:29 Initial Consult Date 11/02/18 Type of Consult Pulmonary Requesting Provider: GOSIA PONCE MD Date/Time of Note DATE: 11/04/18 TIME: 10:22 Subjective Significant agitation and delirium off sedation. Continues mechanical ventilation chest x-ray is clear. Objective Vital Signs Date Temp Pulse Resp B/P (MAP) Pulse Ox O2 O2 Flow FiO2 Time Delivery Rate 11/04/18 109 08:00 11/04/18 98.6 21 143/83 100 Mechanical 07:30 (103) Ventilator 11/04/18 30 05:39 11/02/18 2.0 11:38 Intake and Output 11/03/18 11/03/18 11/04/18 1515:00 23:00 07:00 IntakeIntake Total 885.091 ml 945.454 ml 1381.589 ml OutputOutput Total 285 ml 350 ml 395 ml BalanceBalance 600.091 ml 595.454 ml 986.589 ml Exam GENERAL: Elderly appearing lady orally intubated on mechanical ventilation VITAL SIGNS: per chart NECK: Supple. No JVD or lymphadenopathy. CARDIAC EXAM: S1, S2. No added sounds or murmurs. CHEST: clear bilaterally, No added sounds, rales or wheezes ABDOMEN: Soft, nontender. No guarding or rebound. EXTREMITIES: No cyanosis, clubbing or edema. NEUROLOGIC: Generalized weakness. No focal deficits. Vent Setting Ventilator Support Mode: AC, VC plus Fraction of Inspired Oxygen pe: 30 Positive End Expiratory Pressu: 5.0 Results/Medications Result Diagram: 11/04/18 0400 11/04/18 0400 Results 24 hrs Laboratory Tests Test 11/03/18 10:30 11/03/18 11:31 11/03/18 12:45 11/03/18 14:31 Bedside Glucose 144 164 114 106 Test 11/03/18 16:32 11/03/18 17:43 11/03/18 18:36 11/03/18 19:37 Bedside Glucose 195 190 127 52 L Test 11/03/18 19:58 11/03/18 20:24 11/03/18 20:42 11/03/18 21:03 Bedside Glucose 75 61 L 117 130 Test 11/03/18 21:35 11/03/18 22:16 11/03/18 23:01 11/04/18 00:22 Bedside Glucose 189 197 202 136 Test 11/04/18 01:14 11/04/18 02:15 11/04/18 03:10 11/04/18 04:00 Bedside Glucose 108 94 179 White Blood Count 12.2 #H Red Blood Count 3.30 L Hemoglobin 9.8 L Hematocrit 30.0 L Mean Corpuscular 90.9 Volume Mean Corpuscular 29.7 Hemoglobin Mean Corpuscular 32.7 Hemoglobin Concen t Red Cell 13.0 Distribution Width Platelet Count 164 # Mean Platelet 11.3 H Volume Immature 0.300 Granulocytes % Neutrophils % 78.0 H Lymphocytes % 16.4 Monocytes % 4.9 Eosinophils % 0.2 Basophils % 0.2 Nucleated Red 0.0 Blood Cells % Immature 0.040 H Granulocytes # Neutrophils # 9.5 H Lymphocytes # 2.0 Monocytes # 0.6 Eosinophils # 0.0 Basophils # 0.0 Nucleated Red 0.0 Blood Cells # Sodium Level 142 Potassium Level 2.9 *L Chloride Level 116 H Carbon Dioxide 26 Level Anion Gap 0 L Blood Urea 14 Nitrogen Creatinine 0.62 Est Glomerular > 60 Filtrat Rate mL/min Glucose Level 181 Calcium Level 8.1 L Magnesium Level 1.8 Total Bilirubin 0.2 Direct Bilirubin 0.00 Indirect 0.2 Bilirubin Aspartate Amino 721 H Transf (AST/SGOT) Alanine 189 H Aminotransferase (ALT/SGPT) Alkaline 113 Phosphatase Total Protein 4.9 L Albumin 2.4 L Globulin 2.50 Albumin/Globulin 0.96 Ratio Test 11/04/18 04:08 11/04/18 05:08 11/04/18 06:09 11/04/18 07:00 Bedside Glucose 192 124 123 Blood Gas Blood arterial Specimen Source Arterial Blood 11/04/2018 7:14:3 Date Drawn 5 AM Arterial Blood pH 7.382 (Temp corrected) Arterial Blood 43.6 pCO2 (Temp correct) Arterial Blood 109.5 H pO2 (Temp corrected) Arterial Blood 25.3 HCO3 Arterial Blood 0.1 Base Excess Arterial Blood 97.8 Oxygen Saturation Robbin Test ACCEPTAB Arterial Blood Right Radial Gas Puncture Site Arterial 0.3 Blood Carboxyhemo globin Arterial Blood 0.3 Methemoglobin Blood Gas A-a O2 53.2 H Differential Oxyhemoglobin 97.2 Percent Blood Gas 37.0 Temperature Blood Gas 20.0 Respiration Rate Blood Gas Actual 20 Respiration Rate Blood Gas VENT - AC Modality FiO2 30.0 Blood Gas Tidal 450.0 Volume Blood Gas Low 5.0 PEEP Setting Blood Gas TM Notified Whom Blood Gas 11/04/2018 7:22:0 Notified Time 9 AM Test 11/04/18 08:33 11/04/18 09:27 Bedside Glucose 150 123 Medications Current Medications Ondansetron HCl (Zofran Inj) 4 mg Q6H PRN IV NAUSEA AND/OR VOMITING; Start 11/02/18 at 11:30 Acetaminophen (Tylenol Liquid) 650 mg Q6H PRN PO PAIN LEVEL 1-3 OR FEVER; Start 11/02/18 at 11:30 Acetaminophen/ Hydrocodone Bitart ([place] (5/325)) 1 tab Q6H PRN PO PAIN LEVEL 4-6; Start 11/02/18 at 11:30 Docusate Sodium (Colace) 100 mg Q12H PRN PO CONSTIPATION; Start 11/02/18 at 11:30 Magnesium Hydroxide (Milk Of Mag) 30 ml DAILY PRN PO CONSTIPATION; Start 11/02/18 at 11:30 Pantoprazole (Protonix Iv) 40 mg DAILY@06 IV Last administered on 11/04/18at 06:11; Admin Dose 40 MG; Start 11/03/18 at 06:00 Enoxaparin Sodium (Lovenox) 40 mg DAILY SC Last administered on 11/04/18at 08:40; Admin Dose 40 MG; Start 11/03/18 at 09:00 Propofol 100 ml @ 1.773 mls/ hr PER PROTOCOL IV Last administered on 11/04/18at 07:05; Admin Dose 17.727 MLS/HR; Start 11/02/18 at 13:30 Fentanyl 1000 mcg/ Sodium Chloride 100 ml @ 2.5 mls/hr TITRATE IV Last administered on 11/04/18at 03:10; Admin Dose 10 MLS/HR; Start 11/02/18 at 15:30 Midazolam HCl 50 ml @ 1 mls/hr TITRATE IV Last administered on 11/04/18at 03:04; Admin Dose 5 MLS/HR; Start 11/02/18 at 16:00 Metoprolol Tartrate (Lopressor) 5 mg Q6H PRN IV HR >110; Start 11/02/18 at 17:30 Diagnostic Test (Pha) (Accu-Chek) 1 ea Q1H XX Last administered on 11/04/18at 09:29; Admin Dose 1 EA; Start 11/02/18 at 22:30 Insulin Human Regular 100 unit/ Sodium Chloride 100 ml @ 0.2 mls/hr PER NM OTOCOL IV Last administered on 11/04/18at 01:25; Admin Dose 1 MLS/HR; Start 11/02/18 at 22:30 Miscellaneous Information (* Miscellaneous Pharmacy Order) Treatment of Hypoglycemia: 1.BG 51... Per protocol XX ; Start 11/02/18 at 22:30 Dextrose (D50w Syringe) 25 ml Q15M PRN IV .DECREASED GLUCOSE Last administered on 11/03/18at 20:25; Admin Dose 25 ML; Start 11/02/18 at 22:30 Dextrose (D50w Syringe) 50 ml Q15M PRN IV .DECREASED GLUCOSE; Start 11/02/18 at 22:30 Miscellaneous Information 1 ea NOTE XX ; Start 11/02/18 at 22:30 Dextrose/Sodium Chloride 1,000 ml @ 75 mls/hr [id number] IV Last administered on 11/04/18at 01:16; Admin Dose 75 MLS/HR; Start 11/02/18 at 22:30 Magnesium Oxide (Mag-Ox 400) 400 mg ONCE NGT Last administered on 11/04/18at 06:53; Admin Dose 400 MG; Start 11/04/18 at 07:00; Stop 11/04/18 at 13:00 Potassium Chloride 50 ml @ 25 mls/hr Q2H IVPB Last administered on 11/04/18at 0 9:31; Admin Dose 25 MLS/HR; Start 11/04/18 at 07:00; Stop 11/04/18 at 10:59 Dexmedetomidine HCl 200 mcg/ Sodium Chloride 50 ml @ 0 mls/hr TITRATE IV ; Start 11/04/18 at 10:30; Status UNV Assessment/Plan Hospital Course (Demo Recall) IMP: 1. Severe DKA 2. Severe Anion Gap Metabolic Acidosis 2/2 #1 3. Pre-renal azotemia 4. Resp Failure 2/2 severe acidemia 5. HyperK+ 2/2 #1 6. Possible substance abuse and noncompliance. Ongoing encephalopathy toxic metabolic. RECS: 1. Transition to Precedex DC propofol and Versed 2. Insulin gtt 3. Panculture; serial troponins 4. check TSH 5. Continue tube feeding 6. D/C abx 7. DVT and GI prophy 8. Continue mechanical ventilation Critical care time 40 minutes. FILIPPO ROLDAN MD, [facility] Nov 04, 2018 10:23
[2018-11-04] MEDS ORDERED: DEXMEDETOMIDINE HCL 200 MCG in SOD CHLORIDE 0.9% 48 ML IV SCH (10:30)
--- NOTE | 2018-11-04 10:31 | CONS ---
Assessment/Plan Assessment/Plan Problems: (1) Diabetes mellitus type 1 Status: Acute Comment: Patient is come along nicely although she did develop the hypokalemia. Continue with current treatment. Once she is extubated and will work on getting her on a protocol for home usage that she is more comfortable with. Please note there is much to discuss with her when we are able to speak to her especially given the tox screen results Qualifiers: Diabetes mellitus complication status: without complication Qualified Codes: E10.9 - Type 1 diabetes mellitus without complications (2) Acute kidney injury Status: Acute Comment: Resolving Consultation Date/Type/Reason Admit Date/Time Nov 02, 2018 at 10:29 Initial Consult Date 11/03/18 Type of Consult Endocrinology Reason for Consultation Diabetes mellitus type 1 of 33 years duration with third episode of DKA since April. Requesting Provider: GOSIA PONCE MD Date/Time of Note DATE: 11/04/18 TIME: 10:29 24 HR Interval Summary Free Text/Dictation Patient remains on ventilator with NG tube feedings due to agitation. Subjective hx not possible: pt non-verbal Exam/Review of Systems Exam Vitals Vital Signs Date Temp Pulse Resp B/P (MAP) Pulse Ox O2 O2 Flow FiO2 Time Delivery Rate 11/04/18 109 08:00 11/04/18 98.6 21 143/83 100 Mechanical 07:30 (103) Ventilator 11/04/18 30 05:39 11/02/18 2.0 11:38 Intake and Output 11/03/18 11/03/18 11/04/18 1515:00 23:00 07:00 IntakeIntake Total 885.091 ml 945.454 ml 1381.589 ml OutputOutput Total 285 ml 350 ml 395 ml BalanceBalance 600.091 ml 595.454 ml 986.589 ml Exam Sedated on propofol presently about to go over to Precedex Constitutional: non-verbal Respiratory: clear to auscultation, normal air movement Cardiovascular: regular rate and rhythm, nl pulses Results Result Diagram: 11/04/18 0400 11/04/18 0400 Results 24hrs Laboratory Tests Test 11/03/18 10:30 11/03/18 11:31 11/03/18 12:45 11/03/18 14:31 Bedside Glucose 144 164 114 106 Test 11/03/18 16:32 11/03/18 17:43 11/03/18 18:36 11/03/18 19:37 Bedside Glucose 195 190 127 52 L Test 11/03/18 19:58 11/03/18 20:24 11/03/18 20:42 11/03/18 21:03 Bedside Glucose 75 61 L 117 130 Test 11/03/18 21:35 11/03/18 22:16 11/03/18 23:01 11/04/18 00:22 Bedside Glucose 189 197 202 136 Test 11/04/18 01:14 11/04/18 02:15 11/04/18 03:10 11/04/18 04:00 Bedside Glucose 108 94 179 White Blood Count 12.2 #H Red Blood Count 3.30 L Hemoglobin 9.8 L Hematocrit 30.0 L Mean Corpuscular 90.9 Volume Mean Corpuscular 29.7 Hemoglobin Mean Corpuscular 32.7 Hemoglobin Concen t Red Cell 13.0 Distribution Width Platelet Count 164 # Mean Platelet 11.3 H Volume Immature 0.300 Granulocytes % Neutrophils % 78.0 H Lymphocytes % 16.4 Monocytes % 4.9 Eosinophils % 0.2 Basophils % 0.2 Nucleated Red 0.0 Blood Cells % Immature 0.040 H Granulocytes # Neutrophils # 9.5 H Lymphocytes # 2.0 Monocytes # 0.6 Eosinophils # 0.0 Basophils # 0.0 Nucleated Red 0.0 Blood Cells # Sodium Level 142 Potassium Level 2.9 *L Chloride Level 116 H Carbon Dioxide 26 Level Anion Gap 0 L Blood Urea 14 Nitrogen Creatinine 0.62 Est Glomerular > 60 Filtrat Rate mL/min Glucose Level 181 Calcium Level 8.1 L Magnesium Level 1.8 Total Bilirubin 0.2 Direct Bilirubin 0.00 Indirect 0.2 Bilirubin Aspartate Amino 721 H Transf (AST/SGOT) Alanine 189 H Aminotransferase (ALT/SGPT) Alkaline 113 Phosphatase Total Protein 4.9 L Albumin 2.4 L Globulin 2.50 Albumin/Globulin 0.96 Ratio Test 11/04/18 04:08 11/04/18 05:08 11/04/18 06:09 11/04/18 07:00 Bedside Glucose 192 124 123 Blood Gas Blood arterial Specimen Source Arterial Blood 11/04/2018 7:14:3 Date Drawn 5 AM Arterial Blood pH 7.382 (Temp corrected) Arterial Blood 43.6 pCO2 (Temp correct) Arterial Blood 109.5 H pO2 (Temp corrected) Arterial Blood 25.3 HCO3 Arterial Blood 0.1 Base Excess Arterial Blood 97.8 Oxygen Saturation Robbin Test ACCEPTAB Arterial Blood Right Radial Gas Puncture Site Arterial 0.3 Blood Carboxyhemo globin Arterial Blood 0.3 Methemoglobin Blood Gas A-a O2 53.2 H Differential Oxyhemoglobin 97.2 Percent Blood Gas 37.0 Temperature Blood Gas 20.0 Respiration Rate Blood Gas Actual 20 Respiration Rate Blood Gas VENT - AC Modality FiO2 30.0 Blood Gas Tidal 450.0 Volume Blood Gas Low 5.0 PEEP Setting Blood Gas TM Notified Whom Blood Gas 11/04/2018 7:22:0 Notified Time 9 AM Test 11/04/18 08:33 11/04/18 09:27 Bedside Glucose 150 123 Medications Medication Current Medications Ondansetron HCl (Zofran Inj) 4 mg Q6H PRN IV NAUSEA AND/OR VOMITING; Start 11/02/18 at 11:30 Acetaminophen (Tylenol Liquid) 650 mg Q6H PRN PO PAIN LEVEL 1-3 OR FEVER; Start 11/02/18 at 11:30 Acetaminophen/ Hydrocodone Bitart ([place] (5/325)) 1 tab Q6H PRN PO PAIN LEVEL 4-6; Start 11/02/18 at 11:30 Docusate Sodium (Colace) 100 mg Q12H PRN PO CONSTIPATION; Start 11/02/18 at 11:30 Magnesium Hydroxide (Milk Of Mag) 30 ml DAILY PRN PO CONSTIPATION; Start at 11:30 Pantoprazole (Protonix Iv) 40 mg DAILY@06 IV Last administered on 11/04/18at 06:11; Admin Dose 40 MG; Start 11/03/18 at 06:00 Enoxaparin Sodium (Lovenox) 40 mg DAILY SC Last administered on 11/04/18at 08:40; Admin Dose 40 MG; Start 11/03/18 at 09:00 Propofol 100 ml @ 1.773 mls/ hr PER PROTOCOL IV Last administered on 11/04/18at 07:05; Admin Dose 17.727 MLS/HR; Start 11/02/18 at 13:30 Fentanyl 1000 mcg/ Sodium Chloride 100 ml @ 2.5 mls/hr TITRATE IV Last administered on 11/04/18at 03:10; Admin Dose 10 MLS/HR; Start 11/02/18 at 15:30 Midazolam HCl 50 ml @ 1 mls/hr TITRATE IV Last administered on 11/04/18at 03:04; Admin Dose 5 MLS/HR; Start 11/02/18 at 16:00 Metoprolol Tartrate (Lopressor) 5 mg Q6H PRN IV HR >110; Start 11/02/18 at 17:30 Diagnostic Test (Pha) (Accu-Chek) 1 ea Q1H XX Last administered on 11/04/18at 09:29; Admin Dose 1 EA; Start 11/02/18 at 22:30 Insulin Human Regular 100 unit/ Sodium Chloride 100 ml @ 0.2 mls/hr PER PROTOCOL IV Last administered on 11/04/18 01:25; Admin Dose 1 MLS/HR; Start 11/02/18 at 22:30 Miscellaneous Information (* Miscellaneous Pharmacy Order) Treatment of Hypoglycemia: 1.BG 51... Per protocol XX ; Start 11/02/18 at 22:30 Dextrose (D50w Syringe) 25 ml Q15M PRN IV .DECREASED GLUCOSE Last administered on 11/03/18at 20:25; Admin Dose 25 ML; Start 11/02/18 at 22:30 Dextrose (D50w Syringe) 50 ml Q15M PRN IV .DECREASED GLUCOSE; Start 11/02/18 at 22:30 Miscellaneous Information 1 ea NOTE XX ; Start 11/02/18 at 22:30 Dextrose/Sodium Chloride 1,000 ml @ 75 mls/hr [id number] IV Last administered on 11/04/18at 01:16; Admin Dose 75 MLS/HR; Start 11/02/18 at 22:30 Magnesium Oxide (Mag-Ox 400) 400 mg ONCE NGT Last administered on 11/04/18at 06:53; Admin Dose 400 MG; Start 11/04/18 at 07:00; Stop 11/04/18 at 13:00 Potassium Chloride 50 ml @ 25 mls/hr Q2H IVPB Last administered on 11/04/18at 09:31; Admin Dose 25 MLS/HR; Start 11/04/18 at 07:00; Stop 11/04/18 at 10:59 Dexmedetomidine HCl 200 mcg/ Sodium Chloride 50 ml @ 3.14 mls/hr TITRATE IV ; Start 11/04/18 at 10:30 Dexmedetomidine HCl 200 mcg/ Sodium Chloride 50 ml @ 0 mls/hr TITRATE IV ; Start 11/04/18 at 10:30; Status AMIRA MATHEWS MD Nov 04, 2018 10:31
[2018-11-04] MEDS: DEXMEDETOMIDINE HCL 200 MCG in SOD CHLORIDE 0.9% 48 ML IV SCH ×2 (11:04→20:35)
--- NOTE | 2018-11-04 11:41 | PN ---
Date/Time of Note Date/Time of Note DATE: 11/04/18 TIME: 11:38 Assessment/Plan VTE Prophylaxis Risk score (from [facility])>0 risk: 4 SCD applied (from [facility]): Yes Pharmacological prophylaxis: heparin Lines/Catheters IV Catheter Type (from [facility]): Central Line Central line still needed: Yes Urinary Cath still in place: Yes Reason Cath still needed: urinary retention Assessment/Plan Hospital Course 42 yo female with severe DKA leading to acute respiratory failure from encephelopathy requiring mechanical ventilation DKA: - Resolved - Basal/bolus insulin titration when extubation Transaminitis: - Check RUQ ultrasound, viral serologies - Trend LFTs Hypokalemia: - Replete as needed Acute respiratory failure: - wean mechanical ventilation per pulmonary. Reason for original intubation has been reversed now Result Diagram: 11/04/18 0400 11/04/18 0400 Results 24hrs Laboratory Tests Test 11/03/18 12:45 11/03/18 14:31 11/03/18 16:32 11/03/18 17:43 Bedside Glucose 114 106 195 190 Test 11/03/18 18:36 11/03/18 19:37 11/03/18 19:58 11/03/18 20:24 Bedside Glucose 127 52 L 75 61 L Test 11/03/18 20:42 11/03/18 21:03 11/03/18 21:35 11/03/18 22:16 Bedside Glucose 117 130 189 197 Test 11/03/18 23:01 11/04/18 00:22 11/04/18 01:14 11/04/18 02:15 Bedside Glucose 202 136 108 94 Test 11/04/18 03:10 11/04/18 04:00 11/04/18 04:08 11/04/18 05:08 Bedside Glucose 179 192 124 White Blood Count 12.2 #H Red Blood Count 3.30 L Hemoglobin 9.8 L Hematocrit 30.0 L Mean Corpuscular 90.9 Volume Mean Corpuscular 29.7 Hemoglobin Mean Corpuscular 32.7 Hemoglobin Concen t Red Cell 13.0 Distribution Width Platelet Count 164 # Mean Platelet 11.3 H Volume Immature 0.300 Granulocytes % Neutrophils % 78.0 H Lymphocytes % 16.4 Monocytes % 4.9 Eosinophils % 0.2 Basophils % 0.2 Nucleated Red 0.0 Blood Cells % Immature 0.040 H Granulocytes # Neutrophils # 9.5 H Lymphocytes # 2.0 Monocytes # 0.6 Eosinophils # 0.0 Basophils # 0.0 Nucleated Red 0.0 Blood Cells # Sodium Level 142 Potassium Level 2.9 *L Chloride Level 116 H Carbon Dioxide 26 Level Anion Gap 0 L Blood Urea 14 Nitrogen Creatinine 0.62 Est Glomerular > 60 Filtrat Rate mL/min Glucose Level 181 Calcium Level 8.1 L Magnesium Level 1.8 Total Bilirubin 0.2 Direct Bilirubin 0.00 Indirect 0.2 Bilirubin Aspartate Amino 721 H Transf (AST/SGOT) Alanine 189 H Aminotransferase (ALT/SGPT) Alkaline 113 Phosphatase Total Protein 4.9 L Albumin 2.4 L Globulin 2.50 Albumin/Globulin 0.96 Ratio Test 11/04/18 06:09 11/04/18 07:00 11/04/18 08:33 11/04/18 09:27 Bedside Glucose 123 150 123 Blood Gas Blood arterial Specimen Source Arterial Blood 11/04/2018 7:14:3 Date Drawn 5 AM Arterial Blood pH 7.382 (Temp corrected) Arterial Blood 43.6 pCO2 (Temp correct) Arterial Blood 109.5 H pO2 (Temp corrected) Arterial Blood 25.3 HCO3 Arterial Blood 0.1 Base Excess Arterial Blood 97.8 Oxygen Saturation Robbin Test ACCEPTAB Arterial Blood Right Radial Gas Puncture Site Arterial 0.3 Blood Carboxyhemo globin Arterial Blood 0.3 Methemoglobin Blood Gas A-a O2 53.2 H Differential Oxyhemoglobin 97.2 Percent Blood Gas 37.0 Temperature Blood Gas 20.0 Respiration Rate Blood Gas Actual 20 Respiration Rate Blood Gas VENT - AC Modality FiO2 30.0 Blood Gas Tidal 450.0 Volume Blood Gas Low 5.0 PEEP Setting Blood Gas TM Notified Whom Blood Gas 11/04/2018 7:22:0 Notified Time 9 AM Test 11/04/18 10:37 Bedside Glucose 76 Subjective 24 Hr Interval Summary Free Text/Dictation Remains intubated, on heavy sedation DKA resolved, now with hypokalemia Received tube feeds Exam/Review of Systems Exam Vitals Vital Signs Date Temp Pulse Resp B/P (MAP) Pulse Ox O2 O2 Flow FiO2 Time Delivery Rate 11/04/18 109 08:00 11/04/18 98.6 21 143/83 100 Mechanical 07:30 (103) Ventilator 11/04/18 30 05:39 11/02/18 2.0 11:38 Intake and Output 11/03/18 11/03/18 11/04/18 1515:00 23:00 07:00 IntakeIntake Total 885.091 ml 945.454 ml 1381.589 ml OutputOutput Total 285 ml 350 ml 395 ml BalanceBalance 600.091 ml 595.454 ml 986.589 ml Exam Intubated Sedated No response to stimuli NG tube Tachy, regular lungs clear abdomen soft ext without edema Results Results 24hrs Laboratory Tests Test 11/03/18 12:45 11/03/18 14:31 11/03/18 16:32 11/03/18 17:43 Bedside Glucose 114 106 195 190 Test 11/03/18 18:36 11/03/18 19:37 11/03/18 19:58 11/03/18 20:24 Bedside Glucose 127 52 L 75 61 L Test 11/03/18 20:42 11/03/18 21:03 11/03/18 21:35 11/03/18 22:16 Bedside Glucose 117 130 189 197 Test 11/03/18 23:01 11/04/18 00:22 11/04/18 01:14 11/04/18 02:15 Bedside Glucose 202 136 108 94 Test 11/04/18 03:10 11/04/18 04:00 11/04/18 04:08 11/04/18 05:08 Bedside Glucose 179 192 124 White Blood Count 12.2 #H Red Blood Count 3.30 L Hemoglobin 9.8 L Hematocrit 30.0 L Mean Corpuscular 90.9 Volume Mean Corpuscular 29.7 Hemoglobin Mean Corpuscular 32.7 Hemoglobin Concen t Red Cell 13.0 Distribution Width Platelet Count 164 # Mean Platelet 11.3 H Volume Immature 0.300 Granulocytes % Neutrophils % 78.0 H Lymphocytes % 16.4 Monocytes % 4.9 Eosinophils % 0.2 Basophils % 0.2 Nucleated Red 0.0 Blood Cells % Immature 0.040 H Granulocytes # Neutrophils # 9.5 H Lymphocytes # 2.0 Monocytes # 0.6 Eosinophils # 0.0 Basophils # 0.0 Nucleated Red 0.0 Blood Cells # Sodium Level 142 Potassium Level 2.9 *L Chloride Level 116 H Carbon Dioxide 26 Level Anion Gap 0 L Blood Urea 14 Nitrogen Creatinine 0.62 Est Glomerular > 60 Filtrat Rate mL/min Glucose Level 181 Calcium Level 8.1 L Magnesium Level 1.8 Total Bilirubin 0.2 Direct Bilirubin 0.00 Indirect 0.2 Bilirubin Aspartate Amino 721 H Transf (AST/SGOT) Alanine 189 H Aminotransferase (ALT/SGPT) Alkaline 113 Phosphatase Total Protein 4.9 L Albumin 2.4 L Globulin 2.50 Albumin/Globulin 0.96 Ratio Test 11/04/18 06:09 11/04/18 07:00 11/04/18 08:33 11/04/18 09:27 Bedside Glucose 123 150 123 Blood Gas Blood arterial Specimen Source Arterial Blood 11/04/2018 7:14:3 Date Drawn 5 AM Arterial Blood pH 7.382 (Temp corrected) Arterial Blood 43.6 pCO2 (Temp correct) Arterial Blood 109.5 H pO2 (Temp corrected) Arterial Blood 25.3 HCO3 Arterial Blood 0.1 Base Excess Arterial Blood 97.8 Oxygen Saturation Robbin Test ACCEPTAB Arterial Blood Right Radial Gas Puncture Site Arterial 0.3 Blood Carboxyhemo globin Arterial Blood 0.3 Methemoglobin Blood Gas A-a O2 53.2 H Differential Oxyhemoglobin 97.2 Percent Blood Gas 37.0 Temperature Blood Gas 20.0 Respiration Rate Blood Gas Actual 20 Respiration Rate Blood Gas VENT - AC Modality FiO2 30.0 Blood Gas Tidal 450.0 Volume Blood Gas Low 5.0 PEEP Setting Blood Gas TM Notified Whom Blood Gas 11/04/2018 7:22:0 Notified Time 9 AM Test 11/04/18 10:37 Bedside Glucose 76 Medications Medication Current Medications Ondansetron HCl (Zofran Inj) 4 mg Q6H PRN IV NAUSEA AND/OR VOMITING; Start 11/02/18 at 11:30 Acetaminophen (Tylenol Liquid) 650 mg Q6H PRN PO PAIN LEVEL 1-3 OR FEVER; Start 11/02/18 at 11:30 Acetaminophen/ Hydrocodone Bitart ([place] (5/325)) 1 tab Q6H PRN PO PAIN LEVEL 4-6; Start 11/02/18 at 11:30 Docusate Sodium (Colace) 100 mg Q12H PRN PO CONSTIPATION; Start 11/02/18 at 11:30 Magnesium Hydroxide (Milk Of Mag) 30 ml DAILY PRN PO CONSTIPATION; Start 11/02/18 at 11:30 Pantoprazole (Protonix Iv) 40 mg DAILY@06 IV Last administered on 11/04/18 06:11; Admin Dose 40 MG; Start 11/03/18 at 06:00 Enoxaparin Sodium (Lovenox) 40 mg DAILY SC Last administered on 11/04/18 08:40; Admin Dose 40 MG; Start 11/03/18 at 09:00 Propofol 100 ml @ 1.773 mls/ hr PER PROTOCOL IV Last administered on 11/04/18 07:05; Admin Dose 17.727 MLS/HR; Start 11/02/18 at 13:30 Fentanyl 1000 mcg/ Sodium Chloride 100 ml @ 2.5 mls/hr TITRATE IV Last administered on 11/04/18 03:10; Admin Dose 10 MLS/HR; Start 11/02/18 at 15:30 Midazolam HCl 50 ml @ 1 mls/hr TITRATE IV Last administered on 11/04/18 03:04; Admin Dose 5 MLS/HR; Start 11/02/18 at 16:00 Metoprolol Tartrate (Lopressor) 5 mg Q6H PRN IV HR >110; Start 11/02/18 at 17:30 Diagnostic Test (Pha) (Accu-Chek) 1 ea Q1H XX Last administered on 11/04/18 10:45; Admin Dose 1 EA; Start 11/02/18 at 22:30 Insulin Human Regular 100 unit/ Sodium Chloride 100 ml @ 0.2 mls/hr PER PROTOCOL IV Last administered on 11/04/18 01:25; Admin Dose 1 MLS/HR; Start 11/02/18 at 22:30 Miscellaneous Information (* Miscellaneous Pharmacy Order) Treatment of Hypoglycemia: 1.BG 51... Per protocol XX ; Start 11/02/18 at 22:30 Dextrose (D50w Syringe) 25 ml Q15M PRN IV .DECREASED GLUCOSE Last administered on 11/03/18 20:25; Admin Dose 25 ML; Start 11/02/18 at 22:30 Dextrose (D50w Syringe) 50 ml Q15M PRN IV .DECREASED GLUCOSE; Start 11/02/18 at 22:30 Miscellaneous Information 1 ea NOTE XX ; Start 11/02/18 at 22:30 Dextrose/Sodium Chloride 1,000 ml @ 75 mls/hr [id number] IV Last administered on 11/04/18 01:16; Admin Dose 75 MLS/HR; Start 11/02/18 at 22:30 Magnesium Oxide (Mag-Ox 400) 400 mg ONCE NGT Last administered on 11/04/18at 06:53; Admin Dose 400 MG; Start 11/04/18 at 07:00; Stop 11/04/18 at 13:00 Dexmedetomidine HCl 200 mcg/ Sodium Chloride 50 ml @ 3.14 mls/hr TITRATE IV Last administered on 11/04/18at 11:04; Admin Dose 3.14 MLS/HR; Start 11/04/18 at 11:00 ANDREW BUCK MD Nov 04, 2018 11:41
[2018-11-04] MEDS: ACETAMINOPHEN 650MG/20.3ML CUP PO PRN (15:58)
[2018-11-04] MEDS ORDERED: MAGNESIUM SULFATE 2 GM/50 ML 50 ML IVPB ONE (16:00)
[2018-11-04] MEDS ORDERED: VANCOMYCIN IV PER PHARMACY XX SCH (16:00)
[2018-11-04] MEDS: PIPER-TAZO 3.375 GM IV (PMX) 100 ML IVPB SCH ×2 (16:17→21:56)
[2018-11-04] MEDS: VANCOMYCIN HCL 1.25 GM in SOD CHLORIDE 0.9% 250 ML IVPB SCH (17:52)
[2018-11-04] MEDS: BALSAM PERU/CASTOR OIL 60 GM TUBE TOP SCH (21:00)
[2018-11-05] VITALS (66 sets, daily range): BP systolic 83–115; BP diastolic 54–81; PULSE 69–85; RESP 11–24
[2018-11-05] MEDS: ACCU-CHEK XX SCH ×24 (00:52→23:51)
[2018-11-05] MEDS: DEXMEDETOMIDINE HCL 200 MCG in SOD CHLORIDE 0.9% 48 ML IV SCH ×3 (00:59→19:49)
[2018-11-05] MEDS: DEXTROSE 5%-0.45% NACL 1,000 ML IV SCH ×2 (03:22→17:15)
[2018-11-05] MEDS: VANCOMYCIN HCL 1.25 GM in SOD CHLORIDE 0.9% 250 ML IVPB SCH ×2 (05:23→17:15)
[2018-11-05] MEDS: FENTAnyl 1,000 MCG in SOD CHLORIDE 0.9% 80 ML IV SCH ×2 (05:23→23:50)
[2018-11-05] MEDS: PANTOPRAZOLE 40 MG INJ IV SCH (05:23)
[2018-11-05] MEDS: INSULIN HUMAN REGULAR 100 UNIT in SOD CHLORIDE 0.9% 99 ML IV SCH (05:47)
[2018-11-05] MEDS: PIPER-TAZO 3.375 GM IV (PMX) 100 ML IVPB SCH ×3 (07:55→21:01)
[2018-11-05] MEDS: BALSAM PERU/CASTOR OIL 60 GM TUBE TOP SCH ×2 (08:54→20:57)
[2018-11-05] MEDS: ENOXAPARIN 40 MG/0.4 ML SYG SC SCH (08:54)
--- NOTE | 2018-11-05 11:11 | CONS ---
Consult Date/Type/Reason Admit Date/Time Nov 02, 2018 at 10:29 Initial Consult Date 11/02/18 Type of Consult Pulmonary Requesting Provider: GOSIA PONCE MD Date/Time of Note DATE: 11/05/18 TIME: 11:10 Subjective Patient more alert this morning. Continues Precedex and fentanyl no respiratory distress. Objective Vital Signs Date Temp Pulse Resp B/P (MAP) Pulse Ox O2 O2 Flow FiO2 Time Delivery Rate 11/05/18 71 20 91/54 (66) 100 Mechanical 10:00 Ventilator 11/05/18 30 08:59 11/05/18 97.7 07:30 11/02/18 2.0 11:38 Intake and Output 11/04/18 11/04/18 11/05/18 1515:00 23:00 07:00 IntakeIntake Total 1080.407 ml 1546.88 ml 1364.31 ml OutputOutput Total 750 ml 465 ml 255 ml BalanceBalance 330.407 ml 1081.88 ml 1109.31 ml Exam GENERAL: Elderly appearing lady orally intubated on mechanical ventilation VITAL SIGNS: per chart NECK: Supple. No JVD or lymphadenopathy. CARDIAC EXAM: S1, S2. No added sounds or murmurs. CHEST: clear bilaterally, No added sounds, rales or wheezes ABDOMEN: Soft, nontender. No guarding or rebound. EXTREMITIES: No cyanosis, clubbing or edema. NEUROLOGIC: Generalized weakness. No focal deficits. Vent Setting Ventilator Support Mode: AC, VC plus Fraction of Inspired Oxygen pe: 30 Positive End Expiratory Pressu: 5.0 Results/Medications Result Diagram: 11/05/18 0429 11/05/18 0429 Results 24 hrs Laboratory Tests Test 11/04/18 11:41 11/04/18 11:57 11/04/18 12:16 11/04/18 12:57 Bedside Glucose 89 142 233 H Sodium Level 139 Potassium Level 4.6 Chloride Level 112 H Carbon Dioxide Level 23 Anion Gap 4 L Blood Urea Nitrogen 12 Creatinine 0.54 Est Glomerular > 60 Filtrat Rate mL/min Glucose Level 209 Calcium Level 8.1 L Magnesium Level 1.8 Hepatitis B Surface NEGATIVE Antigen Hepatitis B Core NEGATIVE Total Antibody Hepatitis C Antibody NEGATIVE Test 11/04/18 13:44 11/04/18 14:40 11/04/18 15:56 11/04/18 16:53 Bedside Glucose 218 215 235 H 199 Test 11/04/18 17:41 11/04/18 18:53 11/04/18 19:53 11/04/18 21:03 Bedside Glucose 172 168 135 122 Test 11/04/18 21:58 11/04/18 22:58 11/05/18 01:04 11/05/18 02:27 Bedside Glucose 129 132 203 221 H Test 11/05/18 02:59 11/05/18 04:13 11/05/18 04:29 11/05/18 05:14 Bedside Glucose 199 136 115 White Blood Count 8.8 # Red Blood Count 3.17 L Hemoglobin 9.4 L Hematocrit 29.4 L Mean Corpuscular 92.7 Volume Mean Corpuscular 29.7 Hemoglobin Mean Corpuscular 32.0 Hemoglobin Concent Red Cell 12.8 Distribution Width Platelet Count 113 #L Mean Platelet Volume 11.4 H Immature 0.700 H Granulocytes % Neutrophils % 73.5 Lymphocytes % 19.4 Monocytes % 6.1 Eosinophils % 0.1 Basophils % 0.2 Nucleated Red Blood 0.0 Cells % Immature 0.060 H Granulocytes # Neutrophils # 6.4 Lymphocytes # 1.7 Monocytes # 0.5 Eosinophils # 0.0 Basophils # 0.0 Nucleated Red Blood 0.0 Cells # Sodium Level 140 Potassium Level 3.9 Chloride Level 108 Carbon Dioxide Level 27 Anion Gap 5 Blood Urea Nitrogen 16 Creatinine 0.65 Est Glomerular > 60 Filtrat Rate mL/min Glucose Level 130 # Calcium Level 7.8 L Magnesium Level 2.8 #H Total Bilirubin 1.4 H Direct Bilirubin 0.70 #H Indirect Bilirubin 0.7 Aspartate Amino 1899 H Transf (AST/SGOT) Alanine 844 H Aminotransferase (AL T/SGPT) Alkaline Phosphatase 182 #H Total Protein 5.2 L Albumin 2.5 L Globulin 2.70 Albumin/Globulin 0.92 Ratio Test 11/05/18 06:08 11/05/18 07:12 11/05/18 08:43 11/05/18 09:50 Bedside Glucose 151 188 183 161 Test 11/05/18 10:43 Bedside Glucose 144 Medications Current Medications Ondansetron HCl (Zofran Inj) 4 mg Q6H PRN IV NAUSEA AND/OR VOMITING; Start 11/02/18 at 11:30 Acetaminophen (Tylenol Liquid) 650 mg Q6H PRN PO PAIN LEVEL 1-3 OR FEVER Last administered on 11/04/18 15:58; Admin Dose 650 MG; Start 11/02/18 at 11:30 Acetaminophen/ Hydrocodone Bitart ([place] (5/325)) 1 tab Q6H PRN PO PAIN LEVEL 4-6; Start 11/02/18 at 11:30 Docusate Sodium (Colace) 100 mg Q12H PRN PO CONSTIPATION; Start 11/02/18 at 11:30 Magnesium Hydroxide (Milk Of Mag) 30 ml DAILY PRN PO CONSTIPATION; Start 11/02/18 at 11:30 Pantoprazole (Protonix Iv) 40 mg DAILY@06 IV Last administered on 11/05/18 05:23; Admin Dose 40 MG; Start 11/03/18 at 06:00 Enoxaparin Sodium (Lovenox) 40 mg DAILY SC Last administered on 11/05/18 08:54; Admin Dose 40 MG; Start 11/03/18 at 09:00 Propofol 100 ml @ 1.773 mls/ hr PER PROTOCOL IV Last administered on 11/04/18 21:56; Admin Dose 3.515 MLS/HR; Start 11/02/18 at 13:30 Fentanyl 1000 mcg/ Sodium Chloride 100 ml @ 2.5 mls/hr TITRATE IV Last administered on 11/05/18 05:23; Admin Dose 10 MLS/HR; Start 11/02/18 at 15:30 Midazolam HCl 50 ml @ 1 mls/hr TITRATE IV Last administered on 11/04/18 03:04; Admin Dose 5 MLS/HR; Start 11/02/18 at 16:00 Metoprolol Tartrate (Lopressor) 5 mg Q6H PRN IV HR >110; Start 11/02/18 at 17: 30 Diagnostic Test (Pha) (Accu-Chek) 1 ea Q1H XX Last administered on 11/05/18 10:44; Admin Dose 1 EA; Start 11/02/18 at 22:30 Insulin Human Regular 100 unit/ Sodium Chloride 100 ml @ 0.2 mls/hr PER PROTOCOL IV Last administered on 11/05/18 05:47; Admin Dose 3 MLS/HR; Start 11/02/18 at 22:30 Miscellaneous Information (* Miscellaneous Pharmacy Order) Treatment of Hypoglycemia: 1.BG 51... Per protocol XX ; Start 11/02/18 at 22:30 Dextrose (D50w Syringe) 25 ml Q15M PRN IV .DECREASED GLUCOSE Last administered on 11/03/18at 20:25; Admin Dose 25 ML; Start 11/02/18 at 22:30 Dextrose (D50w Syringe) 50 ml Q15M PRN IV .DECREASED GLUCOSE; Start 11/02/18 at 22:30 Miscellaneous Information 1 ea NOTE XX ; Start 11/02/18 at 22:30 Dextrose/Sodium Chloride 1,000 ml @ 75 mls/hr [id number] IV Last administered on 11/05/18at 03:22; Admin Dose 75 MLS/HR; Start 11/02/18 at 22:30 Dexmedetomidine HCl 200 mcg/ Sodium Chloride 50 ml @ 3.14 mls/hr TITRATE IV Last administered on 11/05/18at 00:59; Admin Dose 6.27 MLS/HR; Start 11/04/18 at 11:00 Vancomycin HCl (Vanco Iv Per Pharmacy) VANCOMYCIN PER PHARMACY PER PROTOCOL XX ; Start 11/04/18 at 16:00 Piperacillin Sod/ Tazobactam Sod 100 ml @ 200 mls/hr Q8 IVPB Last administered on 11/05/18at 07:55; Admin Dose 200 MLS/HR; Start 11/04/18 at 16:00 Vancomycin HCl 1.25 gm/Sodium Chloride 250 ml @ 83.333 mls/ hr Q12H IVPB Last administered on 11/05/18at 05:23; Admin Dose 83.333 MLS/HR; Start 11/04/18 at 17:00 Assessment/Plan Hospital Course (Demo Recall) IMP: 1. Severe DKA 2. Severe Anion Gap Metabolic Acidosis 2/2 #1 3. Pre-renal azotemia 4. Resp Failure 2/2 severe acidemia 5. HyperK+ 2/2 #1 6. Possible substance abuse and noncompliance. Ongoing encephalopathy toxic metabolic. RECS: 1. Continue Precedex decrease O2 as tolerated 2. Insulin gtt 3. CPAP weaning trial 4. Speech therapy evaluation post extubation 5. Consider DC antibiotics 6. PT eval Critical care time 40 minutes. FILIPPO ROLDAN MD, [facility] Nov 05, 2018 11:11
[2018-11-05] MEDS ORDERED: LACTATED RINGER'S 500 ML IV ONE (13:30)
--- NOTE | 2018-11-05 15:16 | PN ---
Date/Time of Note Date/Time of Note DATE: 11/05/18 TIME: 15:08 Assessment/Plan VTE Prophylaxis Risk score (from Ns)>0 risk: 7 SCD applied (from Ns): Yes Pharmacological prophylaxis: heparin Lines/Catheters IV Catheter Type (from Nrs): Central Line Central line still needed: Yes Urinary Cath still in place: Yes Reason Cath still needed: urinary retention Assessment/Plan Hospital Course 42 yo female with severe DKA leading to acute respiratory failure from encephelopathy requiring mechanical ventilation DKA: - Resolved - Basal/bolus insulin titration when extubation Transaminitis: - Fatty liver but no acute pathology on RUQ ultrasound, viral serologies negative. I suspect this is liver injury from systemic illness. However if c ontinues to rise we should pursue serologic workup for less common causes of liver disease - Trend LFTs Hypokalemia: - Resolved Acute respiratory failure: - wean mechanical ventilation per pulmonary Continue ICU care for now Result Diagram: 11/05/18 0429 11/05/18 0429 Results 24hrs Laboratory Tests Test 11/04/18 15:56 11/04/18 16:53 11/04/18 17:41 11/04/18 18:53 Bedside Glucose 235 H 199 172 168 Test 11/04/18 19:53 11/04/18 21:03 11/04/18 21:58 11/04/18 22:58 Bedside Glucose 135 122 129 132 Test 11/05/18 01:04 11/05/18 02:27 11/05/18 02:59 11/05/18 04:13 Bedside Glucose 203 221 H 199 136 Test 11/05/18 04:29 11/05/18 05:14 11/05/18 06:08 11/05/18 07:12 White Blood Count 8.8 # Red Blood Count 3.17 L Hemoglobin 9.4 L Hematocrit 29.4 L Mean Corpuscular 92.7 Volume Mean Corpuscular 29.7 Hemoglobin Mean Corpuscular 32.0 Hemoglobin Concent Red Cell 12.8 Distribution Width Platelet Count 113 #L Mean Platelet Volume 11.4 H Immature 0.700 H Granulocytes % Neutrophils % 73.5 Lymphocytes % 19.4 Monocytes % 6.1 Eosinophils % 0.1 Basophils % 0.2 Nucleated Red Blood 0.0 Cells % Immature 0.060 H Granulocytes # Neutrophils # 6.4 Lymphocytes # 1.7 Monocytes # 0.5 Eosinophils # 0.0 Basophils # 0.0 Nucleated Red Blood 0.0 Cells # Sodium Level 140 Potassium Level 3.9 Chloride Level 108 Carbon Dioxide Level 27 Anion Gap 5 Blood Urea Nitrogen 16 Creatinine 0.65 Est Glomerular > 60 Filtrat Rate mL/min Glucose Level 130 # Calcium Level 7.8 L Magnesium Level 2.8 #H Total Bilirubin 1.4 H Direct Bilirubin 0.70 #H Indirect Bilirubin 0.7 Aspartate Amino 1899 H Transf (AST/SGOT) Alanine 844 H Aminotransferase (AL T/SGPT) Alkaline Phosphatase 182 #H Total Protein 5.2 L Albumin 2.5 L Globulin 2.70 Albumin/Globulin 0.92 Ratio Bedside Glucose 115 151 188 Test 11/05/18 08:43 11/05/18 09:50 11/05/18 10:43 11/05/18 11:33 Bedside Glucose 183 161 144 132 Test 11/05/18 12:43 11/05/18 14:53 Bedside Glucose 138 189 Subjective 24 Hr Interval Summary Free Text/Dictation Unable to be weaned from ventilator as too much agitation Currently only on precedex FiO2 30, PEEP 5, saturating 100% DKA is resolved Exam/Review of Systems Exam Vitals Vital Signs Date Temp Pulse Resp B/P (MAP) Pulse Ox O2 O2 Flow FiO2 Time Delivery Rate 11/05/18 82 12:00 11/05/18 98.4 20 109/68 Mechanical 12:00 (82) Ventilator 11/05/18 100 11:30 11/05/18 30 11:15 11/02/18 2.0 11:38 Intake and Output 11/04/18 11/04/18 11/05/18 1515:00 23:00 07:00 IntakeIntake Total 1080.407 ml 1546.88 ml 1414.31 ml OutputOutput Total 750 ml 465 ml 285 ml BalanceBalance 330.407 ml 1081.88 ml 1129.31 ml Exam Intubated Responds to noxious stimuli Sedated ETT Ng tube RRR Lungs clear Soft nt nd Results Results 24hrs Laboratory Tests Test 11/04/18 15:56 11/04/18 16:53 11/04/18 17:41 11/04/18 18:53 Bedside Glucose 235 H 199 172 168 Test 11/04/18 19:53 11/04/18 21:03 11/04/18 21:58 11/04/18 22:58 Bedside Glucose 135 122 129 132 Test 11/05/18 01:04 11/05/18 02:27 11/05/18 02:59 11/05/18 04:13 Bedside Glucose 203 221 H 199 136 Test 11/05/18 04:29 11/05/18 05:14 11/05/18 06:08 11/05/18 07:12 White Blood Count 8.8 # Red Blood Count 3.17 L Hemoglobin 9.4 L Hematocrit 29.4 L Mean Corpuscular 92.7 Volume Mean Corpuscular 29.7 Hemoglobin Mean Corpuscular 32.0 Hemoglobin Concent Red Cell 12.8 Distribution Width Platelet Count 113 #L Mean Platelet Volume 11.4 H Immature 0.700 H Granulocytes % Neutrophils % 73.5 Lymphocytes % 19.4 Monocytes % 6.1 Eosinophils % 0.1 Basophils % 0.2 Nucleated Red Blood 0.0 Cells % Immature 0.060 H Granulocytes # Neutrophils # 6.4 Lymphocytes # 1.7 Monocytes # 0.5 Eosinophils # 0.0 Basophils # 0.0 Nucleated Red Blood 0.0 Cells # Sodium Level 140 Potassium Level 3.9 Chloride Level 108 Carbon Dioxide Level 27 Anion Gap 5 Blood Urea Nitrogen 16 Creatinine 0.65 Est Glomerular > 60 Filtrat Rate mL/min Glucose Level 130 # Calcium Level 7.8 L Magnesium Level 2.8 #H Total Bilirubin 1.4 H Direct Bilirubin 0.70 #H Indirect Bilirubin 0.7 Aspartate Amino 1899 H Transf (AST/SGOT) Alanine 844 H Aminotransferase (AL T/SGPT) Alkaline Phosphatase 182 #H Total Protein 5.2 L Albumin 2.5 L Globulin 2.70 Albumin/Globulin 0.92 Ratio Bedside Glucose 115 151 188 Test 11/05/18 08:43 11/05/18 09:50 11/05/18 10:43 11/05/18 11:33 Bedside Glucose 183 161 144 132 Test 11/05/18 12:43 11/05/18 14:53 Bedside Glucose 138 189 Medications Medication Current Medications Ondansetron HCl (Zofran Inj) 4 mg Q6H PRN IV NAUSEA AND/OR VOMITING; Start 11/02/18 at 11:30 Acetaminophen (Tylenol Liquid) 650 mg Q6H PRN PO PAIN LEVEL 1-3 OR FEVER Last a dministered on 11/04/18 15:58; Admin Dose 650 MG; Start 11/02/18 at 11:30 Acetaminophen/ Hydrocodone Bitart ([place] (5/325)) 1 tab Q6H PRN PO PAIN LEVEL 4-6; Start 11/02/18 at 11:30 Docusate Sodium (Colace) 100 mg Q12H PRN PO CONSTIPATION; Start 11/02/18 at 11:30 Magnesium Hydroxide (Milk Of Mag) 30 ml DAILY PRN PO CONSTIPATION; Start 11/02/18 at 11:30 Pantoprazole (Protonix Iv) 40 mg DAILY@06 IV Last administered on 11/05/18 05:23; Admin Dose 40 MG; Start 11/03/18 at 06:00 Enoxaparin Sodium (Lovenox) 40 mg DAILY SC Last administered on 11/05/18 08:54; Admin Dose 40 MG; Start 11/03/18 at 09:00 Propofol 100 ml @ 1.773 mls/ hr PER PROTOCOL IV Last administered on 11/04/18 21:56; Admin Dose 3.515 MLS/HR; Start 11/02/18 at 13:30 Fentanyl 1000 mcg/ Sodium Chloride 100 ml @ 2.5 mls/hr TITRATE IV Last administered on 11/05/18 05:23; Admin Dose 10 MLS/HR; Start 11/02/18 at 15:30 Metoprolol Tartrate (Lopressor) 5 mg Q6H PRN IV HR >110; Start 11/02/18 at 17:30 Diagnostic Test (Pha) (Accu-Chek) 1 ea Q1H XX Last administered on 11/05/18 14:58; Admin Dose 1 EA; Start 11/02/18 at 22:30 Insulin Human Regular 100 unit/ Sodium Chloride 100 ml @ 0.2 mls/hr PER PROTOCOL IV Last administered on 11/05/18 05:47; Admin Dose 3 MLS/HR; Start 11/02/18 at 22:30 Miscellaneous Information (* Miscellaneous Pharmacy Order) Treatment of Hypoglycemia: 1.BG 51... Per protocol XX ; Start 11/02/18 at 22:30 Dextrose (D50w Syringe) 25 ml Q15M PRN IV .DECREASED GLUCOSE Last administered on 11/03/18at 20:25; Admin Dose 25 ML; Start 11/02/18 at 22:30 Dextrose (D50w Syringe) 50 ml Q15M PRN IV .DECREASED GLUCOSE; Start 11/02/18 at 22:30 Miscellaneous Information 1 ea NOTE XX ; Start 11/02/18 at 22:30 Dextrose/Sodium Chloride 1,000 ml @ 100 mls/hr Q10H IV Last administered on 11/05/18at 03:22; Admin Dose 75 MLS/HR; Start 11/02/18 at 22:30 Dexmedetomidine HCl 200 mcg/ Sodium Chloride 50 ml @ 3.14 mls/hr TITRATE IV Last administered on 11/05/18at 11:21; Admin Dose 7.84 MLS/HR; Start 11/04/18 at 11:00 Vancomycin HCl (Vanco Iv Per Pharmacy) VANCOMYCIN PER PHARMACY PER PROTOCOL XX ; Start 11/04/18 at 16:00 Piperacillin Sod/ Tazobactam Sod 100 ml @ 200 mls/hr Q8 IVPB Last administered on 11/05/18at 13:19; Admin Dose 200 MLS/HR; Start 11/04/18 at 16:00 Vancomycin HCl 1.25 gm/Sodium Chloride 250 ml @ 83.333 mls/ hr Q12H IVPB Last administered on 11/05/18at 05:23; Admin Dose 83.333 MLS/HR; Start 11/04/18 at 17:00 Miscellaneous Information (*Rx Drug Level Order Reminder*) VANCO TROUGH @ 0,400 ON... ONCE ONCE XX ; Start 11/06/18 at 04:00; Stop 11/06/18 at 04:01 ANDREW BUCK MD Nov 05, 2018 15:16
[2018-11-06] VITALS (28 sets, daily range): BP systolic 91–158; BP diastolic 32–97; PULSE 70–110; RESP 5–22
[2018-11-06] MEDS: INSULIN HUMAN REGULAR 100 UNIT in SOD CHLORIDE 0.9% 99 ML IV SCH (00:01)
[2018-11-06] MEDS: ACCU-CHEK XX SCH ×15 (00:51→15:14)
[2018-11-06] MEDS: DEXTROSE 5%-0.45% NACL 1,000 ML IV SCH ×3 (01:39→22:29)
[2018-11-06] MEDS: DEXMEDETOMIDINE HCL 200 MCG in SOD CHLORIDE 0.9% 48 ML IV SCH ×2 (01:39→08:05)
[2018-11-06] MEDS: VANCOMYCIN HCL 1.5 GM in SOD CHLORIDE 0.9% 250 ML IVPB SCH ×2 (05:12→17:37)
[2018-11-06] MEDS: PIPER-TAZO 3.375 GM IV (PMX) 100 ML IVPB SCH ×3 (05:13→21:26)
[2018-11-06] MEDS: PANTOPRAZOLE 40 MG INJ IV SCH (05:14)
[2018-11-06] MEDS: BALSAM PERU/CASTOR OIL 60 GM TUBE TOP SCH ×2 (08:42→21:26)
[2018-11-06] MEDS: ENOXAPARIN 40 MG/0.4 ML SYG SC SCH (08:47)
--- NOTE | 2018-11-06 10:14 | CONS ---
Consult Date/Type/Reason Admit Date/Time Nov 02, 2018 at 10:29 Initial Consult Date 11/02/18 Type of Consult Pulmonary Requesting Provider: GOSIA PONCE MD Date/Time of Note DATE: 11/06/18 TIME: 10:12 Subjective Opens eyes follow simple commands placed on CPAP weaning trial this morning with adequate blood gas now pending extubation. Objective Vital Signs Date Temp Pulse Resp B/P (MAP) Pulse Ox O2 O2 Flow FiO2 Time Delivery Rate 11/06/18 80 19 125/89 100 Mechanical 09:00 (101) Ventilator 11/06/18 30 08:30 11/06/18 98.6 08:00 11/02/18 2.0 11:38 Intake and Output 11/05/18 11/05/18 11/06/18 1515:00 23:00 07:00 IntakeIntake Total 1570.45 ml 534.36 ml 610 ml OutputOutput Total 260 ml 225 ml 245 ml BalanceBalance 1310.45 ml 309.36 ml 365 ml Exam GENERAL: Elderly appearing lady orally intubated on mechanical ventilation VITAL SIGNS: per chart NECK: Supple. No JVD or lymphadenopathy. CARDIAC EXAM: S1, S2. No added sounds or murmurs. CHEST: clear bilaterally, No added sounds, rales or wheezes ABDOMEN: Soft, nontender. No guarding or rebound. EXTREMITIES: No cyanosis, clubbing or edema. NEUROLOGIC: Generalized weakness. No focal deficits. Vent Setting Ventilator Support Mode: CPAP, PS Fraction of Inspired Oxygen pe: 30 Positive End Expiratory Pressu: 5.0 Results/Medications Result Diagram: 11/06/18 0406 11/06/18 0406 Results 24 hrs Laboratory Tests Test 11/05/18 10:43 11/05/18 11:33 11/05/18 12:43 11/05/18 14:53 Bedside Glucose 144 132 138 189 Test 11/05/18 18:17 11/05/18 19:36 11/05/18 20:54 11/05/18 21:47 Bedside Glucose 202 217 176 181 Test 11/05/18 23:06 11/05/18 23:52 11/06/18 00:50 11/06/18 01:42 Bedside Glucose 165 149 171 186 Test 11/06/18 02:38 11/06/18 04:06 11/06/18 04:08 11/06/18 05:16 Bedside Glucose 156 149 145 White Blood Count 9.8 Red Blood Count 3.02 L Hemoglobin 8.9 L Hematocrit 27.9 L Mean Corpuscular 92.4 Volume Mean Corpuscular 29.5 Hemoglobin Mean Corpuscular 31.9 L Hemoglobin Concen t Red Cell 13.0 Distribution Width Platelet Count 108 L Mean Platelet 12.1 H Volume Immature 0.500 H Granulocytes % Neutrophils % 68.6 Lymphocytes % 19.9 Monocytes % 9.9 Eosinophils % 0.8 Basophils % 0.3 Nucleated Red 0.0 Blood Cells % Immature 0.050 H Granulocytes # Neutrophils # 6.7 Lymphocytes # 2.0 Monocytes # 1.0 H Eosinophils # 0.1 Basophils # 0.0 Nucleated Red 0.0 Blood Cells # Prothrombin Time 11.9 Prothrombin Time 0.9 Ratio INR International 0.87 Normalized Ratio Sodium Level 136 Potassium Level 3.3 L Chloride Level 108 Carbon Dioxide 25 Level Anion Gap 3 L Blood Urea 17 Nitrogen Creatinine 0.57 Est Glomerular > 60 Filtrat Rate mL/min Glucose Level 148 Calcium Level 7.2 L Magnesium Level 2.4 Total Bilirubin 0.4 Direct Bilirubin 0.00 # Indirect 0.4 Bilirubin Aspartate Amino 731 H Transf (AST/SGOT) Alanine 567 H Aminotransferase (ALT/SGPT) Alkaline 192 H Phosphatase Total Protein 4.8 L Albumin 2.3 L Globulin 2.50 Albumin/Globulin 0.92 Ratio Vancomycin Level 8.6 L Trough Test 11/06/18 06:28 11/06/18 08:03 11/06/18 09:04 11/06/18 09:27 Bedside Glucose 189 173 172 Blood Gas Blood arterial Specimen Source Arterial Blood 11/06/2018 9:50:4 Date Drawn 9 AM Arterial Blood pH 7.466 H (Temp corrected) Arterial Blood 30.4 L pCO2 (Temp correct) Arterial Blood 116.4 H pO2 (Temp corrected) Arterial Blood 21.4 L HCO3 Arterial Blood -1.6 Base Excess Arterial Blood 98.2 H Oxygen Saturation Robbin Test ACCEPTAB Arterial Blood Right Radial Gas Puncture Site Arterial 0.3 Blood Carboxyhemo globin Arterial Blood 0.2 Methemoglobin Blood Gas A-a O2 61.8 H Differential Oxyhemoglobin 97.7 Percent Blood Gas 37.0 Temperature Blood Gas Actual 10 Respiration Rate Blood Gas VENT - CPAP Modality FiO2 30.0 Blood Gas Low 5.0 PEEP Setting Blood Gas 10 Pressure Support Blood Gas RT Notified Whom Blood Gas 11/06/2018 10:00: Notified Time 33 AM Medications Current Medications Ondansetron HCl (Zofran Inj) 4 mg Q6H PRN IV NAUSEA AND/OR VOMITING; Start 07/11 at 11:30 Acetaminophen (Tylenol Liquid) 650 mg Q6H PRN PO PAIN LEVEL 1-3 OR FEVER Last administered on 11/04/18at 15:58; Admin Dose 650 MG; Start 11/02/18 at 11:30 Acetaminophen/ Hydrocodone Bitart ([place] (5/325)) 1 tab Q6H PRN PO PAIN LEVEL 4-6; Start 11/02/18 at 11:30 Docusate Sodium (Colace) 100 mg Q12H PRN PO CONSTIPATION; Start 11/02/18 at 11:30 Magnesium Hydroxide (Milk Of Mag) 30 ml DAILY PRN PO CONSTIPATION; Start 11/02/18 at 11:30 Pantoprazole (Protonix Iv) 40 mg DAILY@06 IV Last administered on 11/06/18at 05:14; Admin Dose 40 MG; Start 11/03/18 at 06:00 Enoxaparin Sodium (Lovenox) 40 mg DAILY SC Last administered on 11/06/18at 08:47; Admin Dose 40 MG; Start 11/03/18 at 09:00 Propofol 100 ml @ 1.773 mls/ hr PER PROTOCOL IV Last administered on 11/04/18at 21:56; Admin Dose 3.515 MLS/HR; Start 11/02/18 at 13:30 Fentanyl 1000 mcg/ Sodium Chloride 100 ml @ 2.5 mls/hr TITRATE IV Last administered on 11/05/18at 23:50; Admin Dose 5 MLS/HR; Start 11/02/18 at 15:30 Metoprolol Tartrate (Lopressor) 5 mg Q6H PRN IV HR >110; Start 11/02/18 at 17:30 Insulin Human Regular 100 unit/ Sodium Chloride 100 ml @ 0.2 mls/hr PER PROTOCOL IV Last administered on 11/06/18at 00:01; Admin Dose 3 MLS/HR; Start 11/02/18 at 22:30 Miscellaneous Information (* Miscellaneous Pharmacy Order) Treatment of Hypoglycemia: 1.BG 51... Per protocol XX ; Start 11/02/18 at 22:30 Dextrose (D50w Syringe) 25 ml Q15M PRN IV .DECREASED GLUCOSE Last administered on 11/03/18at 20:25; Admin Dose 25 ML; Start 11/02/18 at 22:30 Dextrose (D50w Syringe) 50 ml Q15M PRN IV .DECREASED GLUCOSE; Start 11/02/18 at 22:30 Miscellaneous Information 1 ea NOTE XX ; Start 11/02/18 at 22:30 Dextrose/Sodium Chloride 1,000 ml @ 100 mls/hr Q10H IV Last administered on 11/06/18at 01:39; Admin Dose 100 MLS/HR; Start 11/02/18 at 22:30 Dexmedetomidine HCl 200 mcg/ Sodium Chloride 50 ml @ 3.14 mls/hr TITRATE IV Last administered on 11/06/18at 08:05; Admin Dose 7.84 MLS/HR; Start 11/04/18 at 11:00 Vancomycin HCl (Vanco Iv Per Pharmacy) VANCOMYCIN PER PHARMACY PER PROTOCOL XX ; Start 11/04/18 at 16:00 Piperacillin Sod/ Tazobactam Sod 100 ml @ 200 mls/hr Q8 IVPB Last administered on 11/06/18at 05:13; Admin Dose 200 MLS/HR; Start 11/04/18 at 16:00 Vancomycin HCl 1.5 gm/Sodium Chloride 250 ml @ 83.333 mls/ hr Q12H IVPB Last administered on 11/06/18at 05:12; Admin Dose 83.333 MLS/HR; Start 11/06/18 at 05:00 Diagnostic Test (Pha) (Accu-Chek) 1 ea Q1H XX ; Start 11/06/18 at 11:00 Assessment/Plan Hospital Course (Demo Recall) IMP: 1. Severe DKA 2. Severe Anion Gap Metabolic Acidosis 2/2 #1 now improved. 3. Pre-renal azotemia 4. Resp Failure 2/2 severe acidemia 5. HyperK+ 2/2 #1 6. Possible substance abuse and noncompliance. Resolving encephalopathy. RECS: 1. Continue Precedex decrease O2 as tolerated CPAP weaning trial., Extubate today 2. Insulin gtt 3. Bronchodilators incentive spirometry postextubation 4. Speech therapy evaluation post extubation 5. Consider DC antibiotics 6. PT eval Critical care time 40 minutes. FILIPPO ROLDAN MD, [facility] Nov 06, 2018 10:14
--- NOTE | 2018-11-06 10:23 | PN ---
Date/Time of Note Date/Time of Note DATE: 11/06/18 TIME: 10:23 Assessment/Plan VTE Prophylaxis Risk score (from [facility] [place] [facility])>0 risk: 5 SCD applied (from [facility] [place]): Yes SCD contraindicated: patient refusal Pharmacological prophylaxis: LMWH Lines/Catheters IV Catheter Type (from [facility]): Central Line Central line still needed: Yes (IV access, difficult peripheral access ) Urinary Cath still in place: Yes Reason Cath still needed: urinary retention Assessment/Plan Assessment/Plan 1. acute hypoxic respiratory failure requiring mechanical ventilator due to severe enceophalopahty from DKA s/p Extubation on 11/06/18 2. acute metabolic encephalopathy from DKA 3. acute DKA on Insulin Gtt 4. H/o DM Type I 5.s/p acute kidney injury due to DKA and prerenal azotemia 6. Hyperkalemia on admission, now Hypokalemia Plan: Seen in ICU, s/p Extuation but still agitated and confused, failed swallow study, will give lantus and sliding scale and plan is to titrate insulin gtt to off IVF D51/2 NS at 100 cc/hr Endocrinology following on patient K replacement as ordered Monitor LFTs, monitor Electrolytes and replace as needed will downgrade to tele once p tis off insulin gtt will follow up Result Diagram: 11/06/18 0406 11/06/18 0406 Results 24hrs Laboratory Tests Test 11/05/18 10:43 11/05/18 11:33 11/05/18 12:43 11/05/18 14:53 Bedside Glucose 144 132 138 189 Test 11/05/18 18:17 11/05/18 19:36 11/05/18 20:54 11/05/18 21:47 Bedside Glucose 202 217 176 181 Test 11/05/18 23:06 11/05/18 23:52 11/06/18 00:50 11/06/18 01:42 Bedside Glucose 165 149 171 186 Test 11/06/18 02:38 11/06/18 04:06 11/06/18 04:08 11/06/18 05:16 Bedside Glucose 156 149 145 White Blood Count 9.8 Red Blood Count 3.02 L Hemoglobin 8.9 L Hematocrit 27.9 L Mean Corpuscular 92.4 Volume Mean Corpuscular 29.5 Hemoglobin Mean Corpuscular 31.9 L Hemoglobin Concen t Red Cell 13.0 Distribution Width Platelet Count 108 L Mean Platelet 12.1 H Volume Immature 0.500 H Granulocytes % Neutrophils % 68.6 Lymphocytes % 19.9 Monocytes % 9.9 Eosinophils % 0.8 Basophils % 0.3 Nucleated Red 0.0 Blood Cells % Immature 0.050 H Granulocytes # Neutrophils # 6.7 Lymphocytes # 2.0 Monocytes # 1.0 H Eosinophils # 0.1 Basophils # 0.0 Nucleated Red 0.0 Blood Cells # Prothrombin Time 11.9 Prothrombin Time 0.9 Ratio INR International 0.87 Normalized Ratio Sodium Level 136 Potassium Level 3.3 L Chloride Level 108 Carbon Dioxide 25 Level Anion Gap 3 L Blood Urea 17 Nitrogen Creatinine 0.57 Est Glomerular > 60 Filtrat Rate mL/min Glucose Level 148 Calcium Level 7.2 L Magnesium Level 2.4 Total Bilirubin 0.4 Direct Bilirubin 0.00 # Indirect 0.4 Bilirubin Aspartate Amino 731 H Transf (AST/SGOT) Alanine 567 H Aminotransferase (ALT/SGPT) Alkaline 192 H Phosphatase Total Protein 4.8 L Albumin 2.3 L Globulin 2.50 Albumin/Globulin 0.92 Ratio Vancomycin Level 8.6 L Trough Test 11/06/18 06:28 11/06/18 08:03 11/06/18 09:04 11/06/18 09:27 Bedside Glucose 189 173 172 Blood Gas Blood arterial Specimen Source Arterial Blood 11/06/2018 9:50:4 Date Drawn 9 AM Arterial Blood pH 7.466 H (Temp corrected) Arterial Blood 30.4 L pCO2 (Temp correct) Arterial Blood 116.4 H pO2 (Temp corrected) Arterial Blood 21.4 L HCO3 Arterial Blood -1.6 Base Excess Arterial Blood 98.2 H Oxygen Saturation Robbin Test ACCEPTAB Arterial Blood Right Radial Gas Puncture Site Arterial 0.3 Blood Carboxyhemo globin Arterial Blood 0.2 Methemoglobin Blood Gas A-a O2 61.8 H Differential Oxyhemoglobin 97.7 Percent Blood Gas 37.0 Temperature Blood Gas Actual 10 Respiration Rate Blood Gas VENT - CPAP Modality FiO2 30.0 Blood Gas Low 5.0 PEEP Setting Blood Gas 10 Pressure Support Blood Gas RT Notified Whom Blood Gas 11/06/2018 10:00: Notified Time 33 AM Subjective 24 Hr Interval Summary Free Text/Dictation pt is extubated, still on insulin gtt, 4 units/hr, BP stable Subjective hx not possible: other (extubated, little agitated ) Respiratory: shortness of breath Gastrointestinal: pain Exam/Review of Systems Exam Vitals Vital Signs Date Temp Pulse Resp B/P (MAP) Pulse Ox O2 O2 Flow FiO2 Time Delivery Rate 11/06/18 80 19 125/89 100 Mechanical 09:00 (101) Ventilator 11/06/18 30 08:30 11/06/18 98.6 08:00 11/02/18 2.0 11:38 Intake and Output 11/05/18 11/05/18 11/06/18 1515:00 23:00 07:00 IntakeIntake Total 1570.45 ml 534.36 ml 610 ml OutputOutput Total 260 ml 225 ml 245 ml BalanceBalance 1310.45 ml 309.36 ml 365 ml Constitutional: other (Extubated agitated, on insulin gtt) Head: normocephalic Eyes: nl conjunctiva ENMT: nl external ears & nose Neck: supple, non-tender Respiratory: congested cough, crackles/rales, diminished breath sounds Cardiovascular: regular rate and rhythm, nl pulses Gastrointestinal: soft, non-tender Musculoskeletal: nl extremities to inspection, muscle weakness, swelling Extremities: normal pulses Neurological: lethargic Skin: nl turgor Results Results 24hrs Laboratory Tests Test 11/05/18 10:43 11/05/18 11:33 11/05/18 12:43 11/05/18 14:53 Bedside Glucose 144 132 138 189 Test 11/05/18 18:17 11/05/18 19:36 11/05/18 20:54 11/05/18 21:47 Bedside Glucose 202 217 176 181 Test 11/05/18 23:06 11/05/18 23:52 11/06/18 00:50 11/06/18 01:42 Bedside Glucose 165 149 171 186 Test 11/06/18 02:38 11/06/18 04:06 11/06/18 04:08 11/06/18 05:16 Bedside Glucose 156 149 145 White Blood Count 9.8 Red Blood Count 3.02 L Hemoglobin 8.9 L Hematocrit 27.9 L Mean Corpuscular 92.4 Volume Mean Corpuscular 29.5 Hemoglobin Mean Corpuscular 31.9 L Hemoglobin Concen t Red Cell 13.0 Distribution Width Platelet Count 108 L Mean Platelet 12.1 H Volume Immature 0.500 H Granulocytes % Neutrophils % 68.6 Lymphocytes % 19.9 Monocytes % 9.9 Eosinophils % 0.8 Basophils % 0.3 Nucleated Red 0.0 Blood Cells % Immature 0.050 H Granulocytes # Neutrophils # 6.7 Lymphocytes # 2.0 Monocytes # 1.0 H Eosinophils # 0.1 Basophils # 0.0 Nucleated Red 0.0 Blood Cells # Prothrombin Time 11.9 Prothrombin Time 0.9 Ratio INR International 0.87 Normalized Ratio Sodium Level 136 Potassium Level 3.3 L Chloride Level 108 Carbon Dioxide 25 Level Anion Gap 3 L Blood Urea 17 Nitrogen Creatinine 0.57 Est Glomerular > 60 Filtrat Rate mL/min Glucose Level 148 Calcium Level 7.2 L Magnesium Level 2.4 Total Bilirubin 0.4 Direct Bilirubin 0.00 # Indirect 0.4 Bilirubin Aspartate Amino 731 H Transf (AST/SGOT) Alanine 567 H Aminotransferase (ALT/SGPT) Alkaline 192 H Phosphatase Total Protein 4.8 L Albumin 2.3 L Globulin 2.50 Albumin/Globulin 0.92 Ratio Vancomycin Level 8.6 L Trough Test 11/06/18 06:28 11/06/18 08:03 11/06/18 09:04 11/06/18 09:27 Bedside Glucose 189 173 172 Blood Gas Blood arterial Specimen Source Arterial Blood 11/06/2018 9:50:4 Date Drawn 9 AM Arterial Blood pH 7.466 H (Temp corrected) Arterial Blood 30.4 L pCO2 (Temp correct) Arterial Blood 116.4 H pO2 (Temp corrected) Arterial Blood 21.4 L HCO3 Arterial Blood -1.6 Base Excess Arterial Blood 98.2 H Oxygen Saturation Robbin Test ACCEPTAB Arterial Blood Right Radial Gas Puncture Site Arterial 0.3 Blood Carboxyhemo globin Arterial Blood 0.2 Methemoglobin Blood Gas A-a O2 61.8 H Differential Oxyhemoglobin 97.7 Percent Blood Gas 37.0 Temperature Blood Gas Actual 10 Respiration Rate Blood Gas VENT - CPAP Modality FiO2 30.0 Blood Gas Low 5.0 PEEP Setting Blood Gas 10 Pressure Support Blood Gas RT Notified Whom Blood Gas 11/06/2018 10:00: Notified Time 33 AM Medications Medication Current Medications Ondansetron HCl (Zofran Inj) 4 mg Q6H PRN IV NAUSEA AND/OR VOMITING; Start 11/02/18 at 11:30 Acetaminophen (Tylenol Liquid) 650 mg Q6H PRN PO PAIN LEVEL 1-3 OR FEVER Last administered on 11/04/18at 15:58; Admin Dose 650 MG; Start 11/02/18 at 11:30 Acetaminophen/ Hydrocodone Bitart ([place] (5/325)) 1 tab Q6H PRN PO PAIN LEVEL 4-6; Start 11/02/18 at 11:30 Docusate Sodium (Colace) 100 mg Q12H PRN PO CONSTIPATION; Start 11/02/18 at 1 1:30 Magnesium Hydroxide (Milk Of Mag) 30 ml DAILY PRN PO CONSTIPATION; Start 11/02/18 at 11:30 Pantoprazole (Protonix Iv) 40 mg DAILY@06 IV Last administered on 11/06/18at 05:14; Admin Dose 40 MG; Start 11/03/18 at 06:00 Enoxaparin Sodium (Lovenox) 40 mg DAILY SC Last administered on 11/06/18at 08 :47; Admin Dose 40 MG; Start 11/03/18 at 09:00 Propofol 100 ml @ 1.773 mls/ hr PER PROTOCOL IV Last administered on 11/04/18at 21:56; Admin Dose 3.515 MLS/HR; Start 11/02/18 at 13:30 Fentanyl 1000 mcg/ Sodium Chloride 100 ml @ 2.5 mls/hr TITRATE IV Last administered on 11/05/18at 23:50; Admin Dose 5 MLS/HR; Start 11/02/18 at 15:30 Metoprolol Tartrate (Lopressor) 5 mg Q6H PRN IV HR >110; Start 11/02/18 at 17:30 Insulin Human Regular 100 unit/ Sodium Chloride 100 ml @ 0.2 mls/hr PER PROTOCOL IV Last administered on 11/06/18at 00:01; Admin Dose 3 MLS/HR; Start 11/02/18 at 22:30 Miscellaneous Information (* Miscellaneous Pharmacy Order) Treatment of Hypoglycemia: 1.BG 51... Per protocol XX ; Start 11/02/18 at 22:30 Dextrose (D50w Syringe) 25 ml Q15M PRN IV .DECREASED GLUCOSE Last administered on 11/03/18at 20:25; Admin Dose 25 ML; Start 11/02/18 at 22:30 Dextrose (D50w Syringe) 50 ml Q15M PRN IV .DECREASED GLUCOSE; Start 11/02/18 at 22:30 Miscellaneous Information 1 ea NOTE XX ; Start 11/02/18 at 22:30 Dextrose/Sodium Chloride 1,000 ml @ 100 mls/hr Q10H IV Last administered on 11/06/18at 01:39; Admin Dose 100 MLS/HR; Start 11/02/18 at 22:30 Dexmedetomidine HCl 200 mcg/ Sodium Chloride 50 ml @ 3.14 mls/hr TITRATE IV Last administered on 11/06/18at 08:05; Admin Dose 7.84 MLS/HR; Start 11/04/18 at 11:00 Vancomycin HCl (Vanco Iv Per Pharmacy) VANCOMYCIN PER PHARMACY PER PROTOCOL XX ; Start 11/04/18 at 16:00 Piperacillin Sod/ Tazobactam Sod 100 ml @ 200 mls/hr Q8 IVPB Last administered on 11/06/18at 05:13; Admin Dose 200 MLS/HR; Start 11/04/18 at 16:00 Vancomycin HCl 1.5 gm/Sodium Chloride 250 ml @ 83.333 mls/ hr Q12H IVPB Last administered on 11/06/18at 05:12; Admin Dose 83.333 MLS/HR; Start 11/06/18 at 05:00 Diagnostic Test (Pha) (Accu-Chek) 1 ea Q1H XX ; Start 11/06/18 at 11:00 LEONARDO MORENO MD Nov 06, 2018 10:23
[2018-11-06] MEDS ORDERED: INSULIN GLARGINE [LANTus] (100 UNITS/ML) SYG SC SCH (11:30)
[2018-11-06] MEDS ORDERED: INSULIN ASPART [NOVOLOG] 3 ML PEN SC SCH (11:30)
--- NOTE | 2018-11-06 12:47 | CONS ---
Assessment/Plan Assessment/Plan Problems: (1) Diabetes mellitus type 1 Status: Acute Comment: Patient is extubated, and will be evaluated by speech therapy before feeding. Please note the patient self discontinued her NG tube feeding. As such her source of sugar is her IV fluids. In addition nephrology has altered the insulin protocol. The present written prescription for insulin may be slightly aggressive. I will go ahead and make adjustments and we will follow her along. Regarding her insulin pump therapy she does not have access to a pump at this time but she wants to transition over to the [employer] pod systems. I will try and initiate the protocol for that although that will be done from my office as an outpatient and will not be a hospital based protocol. She normally receives her care at the local [facility] facility. Qualifiers: Diabetes mellitus complication status: without complication Qualified Codes: E10.9 - Type 1 diabetes mellitus without complications Consultation Date/Type/Reason Admit Date/Time Nov 02, 2018 at 10:29 Initial Consult Date 11/03/18 Type of Consult Endocrinology Reason for Consultation Beatties mellitus type 1 x 3 decades; attention deficit hyperactivity disorder on outpatient Adderall; severe DKA Requesting Provider: GOSIA PONCE MD Date/Time of Note DATE: 11/06/18 TIME: 12:43 24 HR Interval Summary Free Text/Dictation Patient is extubated now is able to speak although she has a raspy voice. Constitutional: no complaints Detailed Summary Cardiovascular: no complaints Gastrointestinal: no complaints Genitourinary: no complaints Psychological: other (Reports on Adderall) Exam/Review of Systems Exam Vitals Vital Signs Date Temp Pulse Resp B/P (MAP) Pulse Ox O2 O2 Flow FiO2 Time Delivery Rate 11/06/18 82 12:00 11/06/18 Nasal 2.0 10:07 Cannula 11/06/18 125/89 100 09:00 (101) 11/06/18 30 08:30 11/06/18 98.6 08:00 Intake and Output 11/05/18 11/05/18 11/06/18 1515:00 23:00 07:00 IntakeIntake Total 1570.45 ml 534.36 ml 717.84 ml OutputOutput Total 260 ml 225 ml 245 ml BalanceBalance 1310.45 ml 309.36 ml 472.84 ml Constitutional: alert, oriented Neck: supple, non-tender Respiratory: clear to auscultation, normal air movement Cardiovascular: regular rate and rhythm, nl pulses Gastrointestinal: soft, nl liver, spleen, non-tender Results Result Diagram: 11/06/18 0406 11/06/18 0406 Results 24hrs Laboratory Tests Test 11/05/18 14:53 11/05/18 18:17 11/05/18 19:36 11/05/18 20:54 Bedside Glucose 189 202 217 176 Test 11/05/18 21:47 11/05/18 23:06 11/05/18 23:52 11/06/18 00:50 Bedside Glucose 181 165 149 171 Test 11/06/18 01:42 11/06/18 02:38 11/06/18 04:06 11/06/18 04:08 Bedside Glucose 186 156 149 White Blood Count 9.8 Red Blood Count 3.02 L Hemoglobin 8.9 L Hematocrit 27.9 L Mean Corpuscular 92.4 Volume Mean Corpuscular 29.5 Hemoglobin Mean Corpuscular 31.9 L Hemoglobin Concen t Red Cell 13.0 Distribution Width Platelet Count 108 L Mean Platelet 12.1 H Volume Immature 0.500 H Granulocytes % Neutrophils % 68.6 Lymphocytes % 19.9 Monocytes % 9.9 Eosinophils % 0.8 Basophils % 0.3 Nucleated Red 0.0 Blood Cells % Immature 0.050 H Granulocytes # Neutrophils # 6.7 Lymphocytes # 2.0 Monocytes # 1.0 H Eosinophils # 0.1 Basophils # 0.0 Nucleated Red 0.0 Blood Cells # Prothrombin Time 11.9 Prothrombin Time 0.9 Ratio INR International 0.87 Normalized Ratio Sodium Level 136 Potassium Level 3.3 L Chloride Level 108 Carbon Dioxide 25 Level Anion Gap 3 L Blood Urea 17 Nitrogen Creatinine 0.57 Est Glomerular > 60 Filtrat Rate mL/min Glucose Level 148 Calcium Level 7.2 L Magnesium Level 2.4 Total Bilirubin 0.4 Direct Bilirubin 0.00 # Indirect 0.4 Bilirubin Aspartate Amino 731 H Transf (AST/SGOT) Alanine 567 H Aminotransferase (ALT/SGPT) Alkaline 192 H Phosphatase Total Protein 4.8 L Albumin 2.3 L Globulin 2.50 Albumin/Globulin 0.92 Ratio Vancomycin Level 8.6 L Trough Test 11/06/18 05:16 11/06/18 06:28 11/06/18 08:03 11/06/18 09:04 Bedside Glucose 145 189 173 172 Test 11/06/18 09:27 11/06/18 11:21 11/06/18 12:19 Blood Gas Blood arterial Specimen Source Arterial Blood 11/06/2018 9:50:4 Date Drawn 9 AM Arterial Blood pH 7.466 H (Temp corrected) Arterial Blood 30.4 L pCO2 (Temp correct) Arterial Blood 116.4 H pO2 (Temp corrected) Arterial Blood 21.4 L HCO3 Arterial Blood -1.6 Base Excess Arterial Blood 98.2 H Oxygen Saturation Robbin Test ACCEPTAB Arterial Blood Right Radial Gas Puncture Site Arterial 0.3 Blood Carboxyhemo globin Arterial Blood 0.2 Methemoglobin Blood Gas A-a O2 61.8 H Differential Oxyhemoglobin 97.7 Percent Blood Gas 37.0 Temperature Blood Gas Actual 10 Respiration Rate Blood Gas VENT - CPAP Modality FiO2 30.0 Blood Gas Low 5.0 PEEP Setting Blood Gas 10 Pressure Support Blood Gas RT Notified Whom Blood Gas 11/06/2018 10:00: Notified Time 33 AM Bedside Glucose 179 166 Medications Medication Current Medications Ondansetron HCl (Zofran Inj) 4 mg Q6H PRN IV NAUSEA AND/OR VOMITING; Start 11/02/18 at 11:30 Acetaminophen (Tylenol Liquid) 650 mg Q6H PRN PO PAIN LEVEL 1-3 OR FEVER Last administered on 11/04/18at 15:58; Admin Dose 650 MG; Start 11/02/18 at 11:30 Acetaminophen/ Hydrocodone Bitart ([place] (5/325)) 1 tab Q6H PRN PO PAIN LEVEL 4-6; Start 11/02/18 at 11:30 Docusate Sodium (Colace) 100 mg Q12H PRN PO CONSTIPATION; Start 11/02/18 at 11:30 Magnesium Hydroxide (Milk Of Mag) 30 ml DAILY PRN PO CONSTIPATION; Start 11/02/18 at 11:30 Pantoprazole (Protonix Iv) 40 mg DAILY@06 IV Last administered on 11/06/18at 05:14; Admin Dose 40 MG; Start 11/03/18 at 06:00 Enoxaparin Sodium (Lovenox) 40 mg DAILY SC Last administered on 11/06/18at 0 8:47; Admin Dose 40 MG; Start 11/03/18 at 09:00 Propofol 100 ml @ 1.773 mls/ hr PER PROTOCOL IV Last administered on 11/04/18at 21:56; Admin Dose 3.515 MLS/HR; Start 11/02/18 at 13:30 Fentanyl 1000 mcg/ Sodium Chloride 100 ml @ 2.5 mls/hr TITRATE IV Last administered on 11/05/18at 23:50; Admin Dose 5 MLS/HR; Start 11/02/18 at 15:30 Metoprolol Tartrate (Lopressor) 5 mg Q6H PRN IV HR >110; Start 11/02/18 at 17:30 Insulin Human Regular 100 unit/ Sodium Chloride 100 ml @ 0.2 mls/hr PER PROTOCOL IV Last administered on 11/06/18at 00:01; Admin Dose 3 MLS/HR; Start 11/02/18 at 22:30 Miscellaneous Information (* Miscellaneous Pharmacy Order) Treatment of Hypoglycemia: 1.BG 51... Per protocol XX ; Start 11/02/18 at 22:30 Dextrose (D50w Syringe) 25 ml Q15M PRN IV .DECREASED GLUCOSE Last administered on 11/03/18at 20:25; Admin Dose 25 ML; Start 11/02/18 at 22:30 Dextrose (D50w Syringe) 50 ml Q15M PRN IV .DECREASED GLUCOSE; Start 11/02/18 at 22:30 Miscellaneous Information 1 ea NOTE XX ; Start 11/02/18 at 22:30 Dextrose/Sodium Chloride 1,000 ml @ 100 mls/hr Q10H IV Last administered on at 01:39; Admin Dose 100 MLS/HR; Start 11/02/18 at 22:30 Dexmedetomidine HCl 200 mcg/ Sodium Chloride 50 ml @ 3.14 mls/hr TITRATE IV Last administered on 11/06/18at 08:05; Admin Dose 7.84 MLS/HR; Start 11/04/18 at 11:00 Vancomycin HCl (Vanco Iv Per Pharmacy) VANCOMYCIN PER PHARMACY PER PROTOCOL XX ; Start 11/04/18 at 16:00 Piperacillin Sod/ Tazobactam Sod 100 ml @ 200 mls/hr Q8 IVPB Last administered on 11/06/18at 05:13; Admin Dose 200 MLS/HR; Start 11/04/18 at 16:00 Vancomycin HCl 1.5 gm/Sodium Chloride 250 ml @ 83.333 mls/ hr Q12H IVPB Last administered on 11/06/18at 05:12; Admin Dose 83.333 MLS/HR; Start 11/06/18 at 05:00 Diagnostic Test (Pha) (Accu-Chek) 1 ea Q1H XX Last administered on 11/06/18at 11:00; Admin Dose 1 EA; Start 11/06/18 at 11:00 Insulin Glargine (Lantus) 20 units BID SC Last administered on 11/06/18at 12:42; Admin Dose 20 UNITS; Start 11/06/18 at 11:30 Insulin Aspart (Novolog Insulin Pen) NOVOLOG *MODERATE* ALGORITHM WITH MEALS BEDTIME SC ; Start 11/06/18 at 11:30 AMIRA REA MD Nov 06, 2018 12:47
[2018-11-06] MEDS: ACETAMINOPHEN 650MG/20.3ML CUP PO PRN (17:36)
[2018-11-06] MEDS ORDERED: GLUCOSE GEL 15 GRAM TUBE PO PRN ×2 (18:00)
[2018-11-06] MEDS ORDERED: GLUCOSE GEL 15 GRAM TUBE BUCCAL PRN (18:00)
[2018-11-06] MEDS ORDERED: DEXTROSE 50% 50 ML SYRINGE IV PRN ×2 (18:00)
[2018-11-06] MEDS ORDERED: GLUCAGON 1 MG INJ IM PRN (18:00)
[2018-11-06] MEDS: INSULIN GLARGINE [LANTus] (100 UNITS/ML) SYG SC SCH (21:27)
[2018-11-06] MEDS: INSULIN ASPART [NOVOLOG] 3 ML PEN SC SCH (21:36)
[2018-11-06] MEDS ORDERED: ALBUTEROL/IPRATROPIUM (NEB) 3 ML AMP HHN STA (22:48)
[2018-11-06] MEDS ORDERED: ALBUTEROL/IPRATROPIUM (NEB) 3 ML AMP HHN PRN ×2 (23:00→23:30)
[2018-11-07] VITALS (20 sets, daily range): BP systolic 105–143; BP diastolic 46–105; PULSE 88–111; RESP 10–30
[2018-11-07] MEDS: INSULIN ASPART [NOVOLOG] 3 ML PEN SC SCH ×7 (00:36→22:29)
[2018-11-07] MEDS: DEXTROSE 5%-0.45% NACL 1,000 ML IV SCH (02:29)
[2018-11-07] MEDS: PANTOPRAZOLE 40 MG INJ IV SCH (05:11)
[2018-11-07] MEDS: PIPER-TAZO 3.375 GM IV (PMX) 100 ML IVPB SCH (05:12)
[2018-11-07] MEDS: VANCOMYCIN HCL 1.5 GM in SOD CHLORIDE 0.9% 250 ML IVPB SCH (05:50)
[2018-11-07] MEDS: ACETAMINOPHEN 650MG/20.3ML CUP PO PRN ×2 (07:09→17:48)
[2018-11-07] MEDS: GUAIFENESIN/CODEINE 5ML CUP PO PRN (07:09)
[2018-11-07] MEDS: INSULIN GLARGINE [LANTus] (100 UNITS/ML) SYG SC SCH ×2 (08:52→21:13)
[2018-11-07] MEDS: BALSAM PERU/CASTOR OIL 60 GM TUBE TOP SCH ×2 (08:53→21:00)
[2018-11-07] MEDS: ENOXAPARIN 40 MG/0.4 ML SYG SC SCH (08:53)
[2018-11-07] MEDS ORDERED: POTASSIUM CHLORIDE (SR) 20 MEQ TAB PO STA ×2 (09:38→10:22)
--- NOTE | 2018-11-07 11:21 | CONS ---
Consult Date/Type/Reason Admit Date/Time Nov 02, 2018 at 10:29 Initial Consult Date 11/02/18 Type of Consult Pulmonary Requesting Provider: GOSIA PONCE MD Date/Time of Note DATE: 11/07/18 TIME: 11:19 Subjective Patient extubated yesterday awake alert oriented this morning no respiratory distress. Objective Vital Signs Date Temp Pulse Resp B/P (MAP) Pulse Ox O2 O2 Flow FiO2 Time Delivery Rate 11/07/18 2.0 10:40 11/07/18 90 12 126/84 98 Nasal 09:00 (98) Cannula 11/07/18 98.0 08:00 11/06/18 36 18:20 Intake and Output 11/06/18 11/06/18 11/07/18 1515:00 23:00 07:00 IntakeIntake Total 1076.84 ml 900.25 ml 800 ml OutputOutput Total 1395 ml 1325 ml 1100 ml BalanceBalance -318.16 ml -424.75 ml -300 ml Exam GENERAL: Elderly appearing lady nasal cannula O2 VITAL SIGNS: per chart NECK: Supple. No JVD or lymphadenopathy. CARDIAC EXAM: S1, S2. No added sounds or murmurs. CHEST: clear bilaterally, No added sounds, rales or wheezes ABDOMEN: Soft, nontender. No guarding or rebound. EXTREMITIES: No cyanosis, clubbing or edema. NEUROLOGIC: Generalized weakness. No focal deficits. Vent Setting Ventilator Support Mode: CPAP, PS Fraction of Inspired Oxygen pe: 36 Positive End Expiratory Pressu: 5.0 Results/Medications Result Diagram: 11/07/18 0400 11/07/18 0400 Results 24 hrs Laboratory Tests Test 11/06/18 11:21 11/06/18 12:19 11/06/18 13:48 11/06/18 15:21 Bedside Glucose 179 166 168 123 Test 11/06/18 21:24 11/07/18 00:32 11/07/18 04:00 11/07/18 05:18 Bedside Glucose 286 H 201 180 White Blood Count 13.2 #H Red Blood Count 3.08 L Hemoglobin 9.0 L Hematocrit 28.4 L Mean Corpuscular 92.2 Volume Mean Corpuscular 29.2 Hemoglobin Mean Corpuscular 31.7 L Hemoglobin Concent Red Cell 12.9 Distribution Width Platelet Count 193 # Mean Platelet Volume 12.4 H Immature 0.800 H Granulocytes % Neutrophils % 76.2 Lymphocytes % 10.9 L Monocytes % 11.4 H Eosinophils % 0.5 Basophils % 0.2 Nucleated Red Blood 0.0 Cells % Immature 0.100 H Granulocytes # Neutrophils # 10.1 H Lymphocytes # 1.4 Monocytes # 1.5 H Eosinophils # 0.1 Basophils # 0.0 Nucleated Red Blood 0.0 Cells # Sodium Level 142 Potassium Level 3.3 L Chloride Level 111 H Carbon Dioxide Level 28 Anion Gap 3 L Blood Urea Nitrogen 11 Creatinine 0.69 Est Glomerular > 60 Filtrat Rate mL/min Glucose Level 186 Calcium Level 7.8 L Phosphorus Level 2.7 Magnesium Level 2.2 Test 11/07/18 08:41 Bedside Glucose 125 Medications Current Medications Ondansetron HCl (Zofran Inj) 4 mg Q6H PRN IV NAUSEA AND/OR VOMITING Last admin istered on 11/07/18at 01:02; Admin Dose 4 MG; Start 11/02/18 at 11:30 Acetaminophen (Tylenol Liquid) 650 mg Q6H PRN PO PAIN LEVEL 1-3 OR FEVER Last administered on 11/07/18at 07:09; Admin Dose 650 MG; Start 11/02/18 at 11:30 Acetaminophen/ Hydrocodone Bitart ([place] (5/325)) 1 tab Q6H PRN PO PAIN LEVEL 4-6; Start 11/02/18 at 11:30 Docusate Sodium (Colace) 100 mg Q12H PRN PO CONSTIPATION; Start 11/02/18 at 11:30 Magnesium Hydroxide (Milk Of Mag) 30 ml DAILY PRN PO CONSTIPATION; Start 11/02/18 at 11:30 Pantoprazole (Protonix Iv) 40 mg DAILY@06 IV Last administered on 11/07/18at 05:11; Admin Dose 40 MG; Start 11/03/18 at 06:00 Enoxaparin Sodium (Lovenox) 40 mg DAILY SC Last administered on 11/07/18at 08:53; Admin Dose 40 MG; Start 11/03/18 at 09:00 Metoprolol Tartrate (Lopressor) 5 mg Q6H PRN IV HR >110; Start 11/02/18 at 17:30 Miscellaneous Information 1 ea NOTE XX ; Start 11/02/18 at 22:30 Dextrose/Sodium Chloride 1,000 ml @ 100 mls/hr Q10H IV Last administered on 11/07/18at 02:29; Admin Dose 100 MLS/HR; Start 11/02/18 at 22:30 Piperacillin Sod/ Tazobactam Sod 100 ml @ 200 mls/hr Q8 IVPB Last administered on 11/07/18at 05:12; Admin Dose 200 MLS/HR; Start 11/04/18 at 16:00 Insulin Glargine (Lantus) 18 units BID SC Last administered on 11/07/18at 08:52; Admin Dose 18 UNITS; Start 11/06/18 at 21:00 Insulin Aspart (Novolog Insulin Pen) NOVOLOG *MODERATE* ALGORI... Q4 SC Last ad ministered on 11/07/18at 05:44; Admin Dose 2 UNIT; Start 11/06/18 at 21:00 Miscellaneous Information 1 ea NOTE XX ; Start 11/06/18 at 18:00 Glucose (Glutose) 15 gm Q15M PRN PO DECREASED GLUCOSE; Start 11/06/18 at 18:00 Glucose (Glutose) 22.5 gm Q15M PRN PO DECREASED GLUCOSE; Start 11/06/18 at 18:00 Dextrose (D50w Syringe) 25 ml Q15M PRN IV DECREASED GLUCOSE; Start 11/06/18 at 18:00 Dextrose (D50w Syringe) 50 ml Q15M PRN IV DECREASED GLUCOSE; Start 11/06/18 at 18:00 Glucagon (Glucagen) 1 mg Q15M PRN IM DECREASED GLUCOSE; Start 11/06/18 at 18:00 Glucose (Glutose) 15 gm Q15M PRN BUCCAL DECREASED GLUCOSE; Start 11/06/18 at 18:00 Guaifenesin/ Codeine Phosphate (Robitussin Ac Liquid Cup) 5 ml Q4H PRN PO COUGH Last administered on 11/07/18at 07:09; Admin Dose 5 ML; Start 11/06/18 at 23:00 Albuterol/ Ipratropium (Duoneb) 3 ml PRN PRN HHN COUGHING; Start 11/06/18 at 23:30 Assessment/Plan Hospital Course (Demo Recall) IMP: 1. Severe DKA 2. Severe Anion Gap Metabolic Acidosis 2/2 #1 now improved. 3. Pre-renal azotemia 4. Resp Failure 2/2 severe acidemia 5. HyperK+ 2/2 #1 6. Possible substance abuse and noncompliance. Resolving encephalopathy. RECS: 1. Advance diet as tolerated 2. DC Hernandez catheter 3. Bronchodilators incentive spirometry postextubation 4. Physical therapy 5. DC vancomycin, p.o. fluconazole for fungal UTI. Stable for transfer Critical care time 40 minutes. FILIPPO ROLDAN MD, FCCP Nov 07, 2018 11:21
[2018-11-07] MEDS ORDERED: FLUCONAZOLE 100 MG TAB PO SCH (11:30)
[2018-11-07] MEDS: VORICONAZOLE 200 MG TAB PO SCH ×2 (12:21→21:11)
--- NOTE | 2018-11-07 12:32 | PN ---
Date/Time of Note Date/Time of Note DATE: 11/07/18 TIME: 12:29 Assessment/Plan VTE Prophylaxis Risk score (from Ns)>0 risk: 5 SCD applied (from Ns): Yes Pharmacological prophylaxis: heparin Lines/Catheters IV Catheter Type (from Nrs): Central Line Central line still needed: Yes Urinary Cath still in place: Yes Reason Cath still needed: urinary retention Assessment/Plan Hospital Course 42 yo female with severe DKA leading to acute respiratory failure from encephelopathy requiring mechanical ventilation. now s/p DKA treatment and s/p exubation Discontinue empiric antibiotics as no evidence of infection. Monitor clinically DKA: - Resolved DM1 - Basal/bolus insulin titration Transaminitis: - No RUQ symptoms - Fatty liver but no acute pathology on RUQ ultrasound, viral serologies negative. I suspect this is liver injury from systemic illness. However if continues to rise we should pursue serologic workup for less common causes of liver disease - Trend LFTs Hypokalemia: - Resolved Pleural effusions: - Suspect from fluids given. No symptoms of pneumonia. Hold fluids. Can consider lasix later if needed Transfer to med/surg Result Diagram: 11/07/18 0400 11/07/18 0400 Results 24hrs Laboratory Tests Test 11/06/18 13:48 11/06/18 15:21 11/06/18 21:24 11/07/18 00:32 Bedside Glucose 168 123 286 H 201 Test 11/07/18 04:00 11/07/18 05:18 11/07/18 08:41 White Blood Count 13.2 #H Red Blood Count 3.08 L Hemoglobin 9.0 L Hematocrit 28.4 L Mean Corpuscular 92.2 Volume Mean Corpuscular 29.2 Hemoglobin Mean Corpuscular 31.7 L Hemoglobin Concent Red Cell 12.9 Distribution Width Platelet Count 193 # Mean Platelet Volume 12.4 H Immature 0.800 H Granulocytes % Neutrophils % 76.2 Lymphocytes % 10.9 L Monocytes % 11.4 H Eosinophils % 0.5 Basophils % 0.2 Nucleated Red Blood 0.0 Cells % Immature 0.100 H Granulocytes # Neutrophils # 10.1 H Lymphocytes # 1.4 Monocytes # 1.5 H Eosinophils # 0.1 Basophils # 0.0 Nucleated Red Blood 0.0 Cells # Sodium Level 142 Potassium Level 3.3 L Chloride Level 111 H Carbon Dioxide Level 28 Anion Gap 3 L Blood Urea Nitrogen 11 Creatinine 0.69 Est Glomerular > 60 Filtrat Rate mL/min Glucose Level 186 Calcium Level 7.8 L Phosphorus Level 2.7 Magnesium Level 2.2 Bedside Glucose 180 125 Subjective 24 Hr Interval Summary Free Text/Dictation Doing fine on room air s/p extubation Only compliant is of throat pain as well as blister on foot Denies infectious symptoms Does not recall events prior to hospital Exam/Review of Systems Exam Vitals Vital Signs Date Temp Pulse Resp B/P (MAP) Pulse Ox O2 O2 Flow FiO2 Time Delivery Rate 11/07/18 2.0 10:40 11/07/18 90 12 126/84 98 Nasal 09:00 (98) Cannula 11/07/18 98.0 08:00 11/06/18 36 18:20 Intake and Output 11/06/18 11/06/18 11/07/18 1515:00 23:00 07:00 IntakeIntake Total 1076.84 ml 900.25 ml 800 ml OutputOutput Total 1395 ml 1325 ml 1100 ml BalanceBalance -318.16 ml -424.75 ml -300 ml Constitutional: alert, oriented, well developed Psych: no complaints, nl mood/affect Head: normocephalic, atraumatic Eyes: nl conjunctiva, EOMI, nl lids, nl sclera, PERRL ENMT: nl external ears & nose, nl lips & teeth, nl nasal mucosa & septum Neck: supple, non-tender Respiratory: clear to auscultation, normal air movement Cardiovascular: regular rate and rhythm, nl pulses Gastrointestinal: soft, nl liver, spleen, non-tender Musculoskeletal: nl extremities to inspection, nl gait and stance Extremities: normal pulses 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, nl mental status, nl speech, nl strength Skin: nl turgor; No rash or lesions Lymph: nl lymph nodes Results Results 24hrs Laboratory Tests Test 11/06/18 13:48 11/06/18 15:21 11/06/18 21:24 11/07/18 00:32 Bedside Glucose 168 123 286 H 201 Test 11/07/18 04:00 11/07/18 05:18 11/07/18 08:41 White Blood Count 13.2 #H Red Blood Count 3.08 L Hemoglobin 9.0 L Hematocrit 28.4 L Mean Corpuscular 92.2 Volume Mean Corpuscular 29.2 Hemoglobin Mean Corpuscular 31.7 L Hemoglobin Concent Red Cell 12.9 Distribution Width Platelet Count 193 # Mean Platelet Volume 12.4 H Immature 0.800 H Granulocytes % Neutrophils % 76.2 Lymphocytes % 10.9 L Monocytes % 11.4 H Eosinophils % 0.5 Basophils % 0.2 Nucleated Red Blood 0.0 Cells % Immature 0.100 H Granulocytes # Neutrophils # 10.1 H Lymphocytes # 1.4 Monocytes # 1.5 H Eosinophils # 0.1 Basophils # 0.0 Nucleated Red Blood 0.0 Cells # Sodium Level 142 Potassium Level 3.3 L Chloride Level 111 H Carbon Dioxide Level 28 Anion Gap 3 L Blood Urea Nitrogen 11 Creatinine 0.69 Est Glomerular > 60 Filtrat Rate mL/min Glucose Level 186 Calcium Level 7.8 L Phosphorus Level 2.7 Magnesium Level 2.2 Bedside Glucose 180 125 Medications Medication Current Medications Ondansetron HCl (Zofran Inj) 4 mg Q6H PRN IV NAUSEA AND/OR VOMITING Last administered on 11/07/18at 01:02; Admin Dose 4 MG; Start 11/02/18 at 11:30 Acetaminophen (Tylenol Liquid) 650 mg Q6H PRN PO PAIN LEVEL 1-3 OR FEVER Last administered on 11/07/18at 07:09; Admin Dose 650 MG; Start 11/02/18 at 11:30 Acetaminophen/ Hydrocodone Bitart ([place] (5/325)) 1 tab Q6H PRN PO PAIN LEVEL 4-6; Start 11/02/18 at 11:30 Docusate Sodium (Colace) 100 mg Q12H PRN PO CONSTIPATION; Start 11/02/18 at 11:30 Magnesium Hydroxide (Milk Of Mag) 30 ml DAILY PRN PO CONSTIPATION; Start 11/02/18 at 11:30 Pantoprazole (Protonix Iv) 40 mg DAILY@06 IV Last administered on 11/07/18at 05:11; Admin Dose 40 MG; Start 11/03/18 at 06:00 Enoxaparin Sodium (Lovenox) 40 mg DAILY SC Last administered on 11/07/18at 08:53; Admin Dose 40 MG; Start 11/03/18 at 09:00 Metoprolol Tartrate (Lopressor) 5 mg Q6H PRN IV HR >110; Start 11/02/18 at 17:30 Miscellaneous Information 1 ea NOTE XX ; Start 11/02/18 at 22:30 Insulin Glargine (Lantus) 18 units BID SC Last administered on 11/07/18at 08:52; Admin Dose 18 UNITS; Start 11/06/18 at 21:00 Insulin Aspart (Novolog Insulin Pen) NOVOLOG *MODERATE* ALGORI... Q4 SC Last administered on 11/07/18at 12:27; Admin Dose 4 UNIT; Start 11/06/18 at 21:00 Miscellaneous Information 1 ea NOTE XX ; Start 11/06/18 at 18:00 Glucose (Glutose) 15 gm Q15M PRN PO DECREASED GLUCOSE; Start 11/06/18 at 18:00 Glucose (Glutose) 22.5 gm Q15M PRN PO DECREASED GLUCOSE; Start 11/06/18 at 18:00 Dextrose (D50w Syringe) 25 ml Q15M PRN IV DECREASED GLUCOSE; Start 11/06/18 at 18:00 Dextrose (D50w Syringe) 50 ml Q15M PRN IV DECREASED GLUCOSE; Start 11/06/18 at 18:00 Glucagon (Glucagen) 1 mg Q15M PRN IM DECREASED GLUCOSE; Start 11/06/18 at 18:00 Glucose (Glutose) 15 gm Q15M PRN BUCCAL DECREASED GLUCOSE; Start 11/06/18 at 18:00 Guaifenesin/ Codeine Phosphate (Robitussin Ac Liquid Cup) 5 ml Q4H PRN PO COUGH Last administered on 11/07/18at 07:09; Admin Dose 5 ML; Start 11/06/18 at 23:00 Albuterol/ Ipratropium (Duoneb) 3 ml PRN PRN HHN COUGHING; Start 11/06/18 at 23:30 Voriconazole (Vfend) 200 mg BID PO Last administered on 11/07/18at 12:21; Admin Dose 200 MG; Start 11/07/18 at 11:45; Stop 11/11/18 at 23:59 ANDREW BUCK MD Nov 07, 2018 12:32
--- NOTE | 2018-11-07 13:18 | CONS ---
Assessment/Plan Assessment/Plan Problems: (1) Diabetes mellitus type 1 Status: Acute Comment: By mechanism separate from me the patient apparently may be getting a brand-new [employer] pump as an outpatient. Her normal medical care is through the local [facility], and the CDE Gracie Coyle. For now since she is hernia we will add in mealtime insulins to help cover for this. Qualifiers: Diabetes mellitus complication status: without complication Qualified Codes: E10.9 - Type 1 diabetes mellitus without complications (2) Abnormal liver enzymes Status: Acute Comment: This is slowly decreasing. Hepatitis serologies are negative. Consultation Date/Type/Reason Admit Date/Time Nov 02, 2018 at 10:29 Initial Consult Date 11/03/18 Type of Consult Endocrinology Reason for Consultation Diabetes mellitus type 1 times 33 years; third episode of DKA in 7 months; abnormal liver chemistries; attention deficit hyperactivity disorder on long- term oral Adderall; Requesting Provider: GOSIA PONCE MD Date/Time of Note DATE: 11/07/18 TIME: 13:15 24 HR Interval Summary Free Text/Dictation She reports her respirations are better and her voice is better. She is working on eating. Constitutional: no complaints Detailed Summary ENT: sore throat Respiratory: no complaints Cardiovascular: no complaints Gastrointestinal: no complaints Endocrine: no complaints Exam/Review of Systems Exam Vitals Vital Signs Date Temp Pulse Resp B/P (MAP) Pulse Ox O2 O2 Flow FiO2 Time Delivery Rate 11/07/18 108 20 122/80 81 Nasal 13:00 (94) Cannula 11/07/18 98.0 12:00 11/07/18 2.0 10:40 11/06/18 36 18:20 Intake and Output 11/06/18 11/06/18 11/07/18 1414:59 22:59 06:59 IntakeIntake Total 1144.68 ml 800.25 ml 1000 ml OutputOutput Total 1085 ml 1510 ml 925 ml BalanceBalance 59.68 ml -709.75 ml 75 ml Exam Voice is much clearer today. Patient is having some verbal jousting with her significant other Constitutional: alert, oriented Neck: supple, non-tender Respiratory: clear to auscultation, normal air movement Cardiovascular: regular rate and rhythm, nl pulses Results Result Diagram: 2/15/19 0400 2/15/19 0400 Results 24hrs Laboratory Tests Test 11/06/18 13:48 11/06/18 15:21 11/06/18 21:24 11/07/18 00:32 Bedside Glucose 168 123 286 H 201 Test 11/07/18 04:00 11/07/18 05:18 11/07/18 08:41 11/07/18 12:24 White Blood Count 13.2 #H Red Blood Count 3.08 L Hemoglobin 9.0 L Hematocrit 28.4 L Mean Corpuscular 92.2 Volume Mean Corpuscular 29.2 Hemoglobin Mean Corpuscular 31.7 L Hemoglobin Concent Red Cell 12.9 Distribution Width Platelet Count 193 # Mean Platelet Volume 12.4 H Immature 0.800 H Granulocytes % Neutrophils % 76.2 Lymphocytes % 10.9 L Monocytes % 11.4 H Eosinophils % 0.5 Basophils % 0.2 Nucleated Red Blood 0.0 Cells % Immature 0.100 H Granulocytes # Neutrophils # 10.1 H Lymphocytes # 1.4 Monocytes # 1.5 H Eosinophils # 0.1 Basophils # 0.0 Nucleated Red Blood 0.0 Cells # Sodium Level 142 Potassium Level 3.3 L Chloride Level 111 H Carbon Dioxide Level 28 Anion Gap 3 L Blood Urea Nitrogen 11 Creatinine 0.69 Est Glomerular > 60 Filtrat Rate mL/min Glucose Level 186 Calcium Level 7.8 L Phosphorus Level 2.7 Magnesium Level 2.2 Total Bilirubin 0.3 Direct Bilirubin 0.00 Indirect Bilirubin 0.3 Aspartate Amino 242 H Transf (AST/SGOT) Alanine 423 H Aminotransferase (AL T/SGPT) Alkaline Phosphatase 190 H Total Protein 4.5 L Albumin 2.2 L Bedside Glucose 180 125 183 Medications Medication Current Medications Ondansetron HCl (Zofran Inj) 4 mg Q6H PRN IV NAUSEA AND/OR VOMITING Last admi nistered on 11/07/18at 01:02; Admin Dose 4 MG; Start 11/02/18 at 11:30 Acetaminophen (Tylenol Liquid) 650 mg Q6H PRN PO PAIN LEVEL 1-3 OR FEVER Last administered on 11/07/18at 07:09; Admin Dose 650 MG; Start 11/02/18 at 11:30 Acetaminophen/ Hydrocodone Bitart ([place] (5/325)) 1 tab Q6H PRN PO PAIN LEVEL 4-6; Start 11/02/18 at 11:30 Docusate Sodium (Colace) 100 mg Q12H PRN PO CONSTIPATION; Start 11/02/18 at 11:30 Magnesium Hydroxide (Milk Of Mag) 30 ml DAILY PRN PO CONSTIPATION; Start 11/02/18 at 11:30 Pantoprazole (Protonix Iv) 40 mg DAILY@06 IV Last administered on 11/07/18at 05:11; Admin Dose 40 MG; Start 11/03/18 at 06:00 Enoxaparin Sodium (Lovenox) 40 mg DAILY SC Last administered on 11/07/18at 08:53; Admin Dose 40 MG; Start 11/03/18 at 09:00 Metoprolol Tartrate (Lopressor) 5 mg Q6H PRN IV HR >110; Start 11/02/18 at 17:30 Miscellaneous Information 1 ea NOTE XX ; Start 11/02/18 at 22:30 Insulin Glargine (Lantus) 18 units BID SC Last administered on 11/07/18at 08:52; Admin Dose 18 UNITS; Start 11/06/18 at 21:00 Insulin Aspart (Novolog Insulin Pen) NOVOLOG *MODERATE* ALGORI... Q4 SC Last administered on 11/07/18at 12:27; Admin Dose 4 UNIT; Start 11/06/18 at 21:00 Miscellaneous Information 1 ea NOTE XX ; Start 11/06/18 at 18:00 Glucose (Glutose) 15 gm Q15M PRN PO DECREASED GLUCOSE; Start 11/06/18 at 18:00 Glucose (Glutose) 22.5 gm Q15M PRN PO DECREASED GLUCOSE; Start 11/06/18 at 18:00 Dextrose (D50w Syringe) 25 ml Q15M PRN IV DECREASED GLUCOSE; Start 11/06/18 at 18:00 Dextrose (D50w Syringe) 50 ml Q15M PRN IV DECREASED GLUCOSE; Start 11/06/18 at 18:00 Glucagon (Glucagen) 1 mg Q15M PRN IM DECREASED GLUCOSE; Start 11/06/18 at 18:00 Glucose (Glutose) 15 gm Q15M PRN BUCCAL DECREASED GLUCOSE; Start 11/06/18 at 18:00 Guaifenesin/ Codeine Phosphate (Robitussin Ac Liquid Cup) 5 ml Q4H PRN PO COUGH Last administered on 11/07/18at 07:09; Admin Dose 5 ML; Start 11/06/18 at 23:00 Albuterol/ Ipratropium (Duoneb) 3 ml PRN PRN HHN COUGHING; Start 11/06/18 at 23:30 Voriconazole (Vfend) 200 mg BID PO Last administered on 11/07/18at 12:21; Admin Dose 200 MG; Start 11/07/18 at 11:45; Stop 11/11/18 at 23:59 AMIRA REA MD Nov 07, 2018 13:18
[2018-11-08] VITALS: BP 126/63; PULSE 97; RESP 18
[2018-11-08] MEDS: ACCU-CHEK XX SCH (02:00)
[2018-11-08] MEDS: CEPASTAT LOZENGE MT PRN ×2 (02:43→09:07)
[2018-11-08] MEDS: PANTOPRAZOLE 40 MG INJ IV SCH (06:39)
[2018-11-08 07:18] VITALS: BP 159/76; PULSE 102; RESP 20
[2018-11-08 07:46] VITALS: BP 168/84; PULSE 93; RESP 14
[2018-11-08] MEDS: INSULIN ASPART [NOVOLOG] 3 ML PEN SC SCH ×7 (07:50→21:00)
[2018-11-08] MEDS: INSULIN GLARGINE [LANTus] (100 UNITS/ML) SYG SC SCH ×2 (08:45→21:12)
[2018-11-08] MEDS: VORICONAZOLE 200 MG TAB PO SCH ×2 (08:46→21:10)
[2018-11-08] MEDS: ENOXAPARIN 40 MG/0.4 ML SYG SC SCH (08:52)
[2018-11-08] MEDS: BALSAM PERU/CASTOR OIL 60 GM TUBE TOP SCH ×2 (09:00→21:10)
--- NOTE | 2018-11-08 10:58 | CONS ---
Assessment/Plan Assessment/Plan Problems: (1) Diabetes mellitus type 1 Status: Chronic Comment: Pt. reports at home takes lantus 40 units qhs and Novolog 20 units qac. Pt. currently on Lantus 34 units daily but Novolog only 3 units qac. Presumably this is b/c pt. is just reinitiating diet. However, pt. likely will eat more today than yesterday and was already hyperglycemic last night. Will increase mealtime Novolog to 8 units qac and reeval tomorrow. Qualifiers: Diabetes mellitus complication status: without complication Qualified Codes: E10.9 - Type 1 diabetes mellitus without complications Consultation Date/Type/Reason Admit Date/Time Nov 02, 2018 at 10:29 Initial Consult Date 11/03/18 Type of Consult Endocrinology Reason for Consultation DKA, T1DM management Requesting Provider: GOSIA PONCE MD Date/Time of Note DATE: 11/08/18 TIME: 10:56 24 HR Interval Summary Constitutional: no complaints, improved Detailed Summary ENT: pain (ear), sore throat Respiratory: cough, wheezing Cardiovascular: no complaints Gastrointestinal: no complaints Genitourinary: no complaints Musculoskeletal: no complaints Neurologic: no complaints Exam/Review of Systems Exam Vitals VS - Last 72 Hours, by Label Date Temp Pulse Resp B/P (MAP) Pulse Ox O2 O2 Flow FiO2 Time Delivery Rate 11/08/18 98.7 93 14 168/84 100 Nasal 07:46 (112) Cannula 11/08/18 98.4 102 20 159/76 94 Room Air 07:18 (103) 11/08/18 2.0 04:30 11/08/18 99.0 97 18 126/63 94 00:00 (84) 11/07/18 2.0 20:00 11/07/18 100.1 107 18 124/61 93 19:30 (82) 11/07/18 98.4 108 20 139/65 94 Nasal 3.0 16:55 (89) Cannula 11/07/18 98 16 128/65 95 Nasal 16:00 (86) Cannula 11/07/18 97.8 111 18 143/70 98 Nasal 15:00 (94) Cannula 11/07/18 102 18 127/69 98 Nasal 14:00 (88) Cannula 11/07/18 108 20 122/80 81 Nasal 13:00 (94) Cannula 11/07/18 98.0 91 18 112/54 100 Nasal 12:00 (73) Cannula 11/07/18 92 12:00 11/07/18 96 18 120/65 89 Nasal 11:00 (83) Cannula 11/07/18 2.0 10:40 11/07/18 97 16 134/105 98 Nasal 10:00 (115) Cannula 11/07/18 90 12 126/84 98 Nasal 09:00 (98) Cannula 11/07/18 Nasal 2.0 08:00 Cannula 11/07/18 98.0 88 11 122/67 100 Nasal 08:00 (85) Cannula 11/07/18 88 08:00 11/07/18 89 18 105/46 100 Nasal 07:00 (65) Cannula 11/07/18 97 17 118/60 100 Nasal 06:00 (79) Cannula 11/07/18 95 16 120/54 100 Nasal 05:00 (76) Cannula 11/07/18 96 04:00 11/07/18 97.7 90 24 128/53 100 Nasal 04:00 (78) Cannula 11/07/18 92 10 118/65 100 Nasal 03:00 (82) Cannula 11/07/18 96 20 113/53 100 Nasal 02:00 (73) Cannula 11/07/18 105 30 128/75 100 Nasal 01:00 (92) Cannula 11/07/18 2.0 00:22 11/07/18 93 00:01 11/07/18 97.5 92 21 135/70 100 Nasal 00:00 (91) Cannula 11/07/18 2.0 00:00 11/06/18 93 8 118/60 100 Nasal 23:00 (79) Cannula 11/06/18 94 17 133/97 100 Nasal 22:00 (109) Cannula 11/06/18 100 112/62 100 Nasal 21:00 (79) Cannula 11/06/18 99.6 103 13 124/69 99 Nasal 20:00 (87) Cannula 11/06/18 106 20:00 11/06/18 Nasal 4.0 20:00 Cannula 11/06/18 2.0 20:00 11/06/18 110 16 158/32 99 Nasal 19:00 (74) Cannula 11/06/18 4.0 36 18:20 11/06/18 110 20 138/67 100 Nasal 18:00 (90) Cannula 11/06/18 102 13 102/69 97 Nasal 17:00 (80) Cannula 11/06/18 99.5 100 14 127/61 100 Nasal 16:00 (83) Cannula 11/06/18 98 16:00 11/06/18 88 12 112/62 100 Nasal 15:00 (79) Cannula 11/06/18 90 12 120/67 100 Nasal 14:00 (84) Cannula 11/06/18 85 5 134/84 100 Nasal 13:00 (101) Cannula 11/06/18 99.5 85 16 130/73 100 Nasal 12:00 (92) Cannula 11/06/18 82 12:00 11/06/18 84 15 126/83 100 Nasal 11:00 (97) Cannula 11/06/18 Nasal 2.0 10:07 Cannula 11/06/18 86 22 127/83 100 [employer] 10:00 (98) l Ventilato r 11/06/18 80 19 125/89 100 [employer] 09:00 (101) l Ventilato r 11/06/18 80 20 100 30 08:30 11/06/18 30 08:00 11/06/18 71 08:00 11/06/18 98.6 70 19 102/66 100 [employer] 08:00 (78) l Ventilato r 11/06/18 72 19 104/65 100 [employer] 07:00 (78) l Ventilato r 11/06/18 71 20 99/67 (78) 100 06:00 11/06/18 73 20 100 30 05:20 11/06/18 98.6 72 20 98/63 (75) 100 05:00 11/06/18 75 04:00 11/06/18 72 20 98/64 (75) 100 04:00 11/06/18 78 20 100 30 03:45 11/06/18 76 20 103/63 100 03:00 (76) 11/06/18 74 20 99/62 (74) 100 02:00 11/06/18 77 20 100 30 01:30 11/06/18 74 20 91/56 (68) 100 [employer] 01:00 l Ventilato r 11/06/18 98.8 80 20 104/66 100 [employer] 00:00 (79) l Ventilato r 11/06/18 75 00:00 11/05/18 78 20 100 30 23:22 11/05/18 77 20 97/60 (72) 100 23:00 11/05/18 79 20 99/62 (74) 100 [employer] 22:00 l Ventilato r 11/05/18 83 23 100 30 21:32 11/05/18 78 20 92/57 (69) 100 [employer] 21:00 l Ventilato r 11/05/18 30 20:09 11/05/18 98.3 78 20 101/61 100 [employer] 20:00 (74) l Ventilato r 11/05/18 78 20:00 11/05/18 81 23 100 30 19:40 11/05/18 83 18 106/64 100 [employer] 19:00 (78) l Ventilato r 11/05/18 83 18 115/71 100 [employer] 17:30 (86) l Ventilato r 11/05/18 82 20 100 30 17:10 11/05/18 82 20 107/65 100 [employer] 17:00 (79) l Ventilato r 11/05/18 81 19 106/67 100 [employer] 16:30 (80) l Ventilato r 11/05/18 78 16:00 11/05/18 98.9 78 20 100/62 100 [employer] 16:00 (75) l Ventilato r 11/05/18 80 20 98/59 (72) 100 [employer] 15:30 l Ventilato r 11/05/18 79 20 100 30 15:10 11/05/18 81 20 99/61 (74) 100 15:00 11/05/18 80 20 103/63 100 [employer] 14:30 (76) l Ventilato r 11/05/18 82 20 104/61 100 14:00 (75) 11/05/18 82 20 112/69 100 [employer] 13:30 (83) l Ventilato r 11/05/18 91 20 100 30 13:10 11/05/18 81 20 103/65 100 13:00 (78) 11/05/18 82 12:00 11/05/18 98.4 83 20 109/68 [employer] 12:00 (82) l Ventilato r 11/05/18 78 20 107/74 100 11:30 (85) 11/05/18 30 11:15 11/05/18 30 11:15 11/05/18 77 24 100 30 11:00 11/05/18 30 11:00 11/05/18 85 11 111/81 100 [employer] 11:00 (91) l Ventilato r Vital Signs Date Temp Pulse Resp B/P (MAP) Pulse Ox O2 O2 Flow FiO2 Time Delivery Rate 11/08/18 98.7 93 14 168/84 100 Nasal 07:46 (112) Cannula 11/08/18 2.0 04:30 11/06/18 36 18:20 Intake and Output 11/07/18 11/07/18 11/08/18 1515:00 23:00 07:00 IntakeIntake Total 1500 ml 200 ml OutputOutput Total 800 ml BalanceBalance 700 ml 200 ml Constitutional: alert, oriented, well developed Psych: no complaints, nl mood/affect Respiratory: wheezing Cardiovascular: regular rate and rhythm, nl pulses; No edema, No murmurs/extra sounds, No rub Gastrointestinal: soft, nl liver, spleen, non-tender, bowel sounds; No mass, No rebound or guarding Musculoskeletal: nl extremities to inspection Extremities: normal pulses; No cyanosis, No clubbing, No edema 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, nl mental status, nl speech, nl strength Additional Comments Bedside Glucose - 72 Hours Test 11/05/18 11:33 11/05/18 12:43 11/05/18 14:53 11/05/18 18:17 Bedside 132 138 189 202 Glucose mg/dL (70-220) mg/dL (70-220) mg/dL (70-220) mg/dL (70-220) Test 11/05/18 19:36 11/05/18 20:54 11/05/18 21:47 11/05/18 23:06 Bedside 217 176 181 165 Glucose mg/dL (70-220) mg/dL (70-220) mg/dL (70-220) mg/dL (70-220) Test 11/05/18 23:52 11/06/18 00:50 11/06/18 01:42 11/06/18 02:38 Bedside 149 171 186 156 Glucose mg/dL (70-220) mg/dL (70-220) mg/dL (70-220) mg/dL (70-220) Test 11/06/18 04:08 11/06/18 05:16 11/06/18 06:28 11/06/18 08:03 Bedside 149 145 189 173 Glucose mg/dL (70-220) mg/dL (70-220) mg/dL (70-220) mg/dL (70-220) Test 11/06/18 09:04 11/06/18 11:21 11/06/18 12:19 11/06/18 13:48 Bedside 172 179 166 168 Glucose mg/dL (70-220) mg/dL (70-220) mg/dL (70-220) mg/dL (70-220) Test 11/06/18 15:21 11/06/18 21:24 11/07/18 00:32 11/07/18 05:18 Bedside 123 286 201 180 Glucose mg/dL (70-220) mg/dL (70-220) mg/dL (70-220) mg/dL (70-220) H Test 11/07/18 08:41 11/07/18 12:24 11/07/18 17:36 11/07/18 21:09 Bedside 125 183 164 244 Glucose mg/dL (70-220) mg/dL (70-220) mg/dL (70-220) mg/dL (70-220) H Test 11/07/18 22:26 11/08/18 01:34 11/08/18 08:39 Bedside 252 213 134 Glucose mg/dL (70-220) mg/dL (70-220) mg/dL (70-220) H Results Result Diagram: 11/07/18 0400 11/07/18 0400 Results 24hrs Laboratory Tests Test 11/07/18 12:24 11/07/18 17:36 11/07/18 21:09 11/07/18 22:26 Bedside Glucose 183 164 244 H 252 H Test 11/08/18 01:34 11/08/18 08:39 Bedside Glucose 213 134 Medications Medication Current Medications Ondansetron HCl (Zofran Inj) 4 mg Q6H PRN IV NAUSEA AND/OR VOMITING Last administered on 11/07/18at 01:02; Admin Dose 4 MG; Start 11/02/18 at 11:30 Acetaminophen (Tylenol Liquid) 650 mg Q6H PRN PO PAIN LEVEL 1-3 OR FEVER Last administered on 11/07/18at 17:48; Admin Dose 650 MG; Start 11/02/18 at 11:30 Acetaminophen/ Hydrocodone Bitart ([place] (5/325)) 1 tab Q6H PRN PO PAIN LEVEL 4-6; Start 11/02/18 at 11:30 Docusate Sodium (Colace) 100 mg Q12H PRN PO CONSTIPATION; Start 11/02/18 at 11:30 Magnesium Hydroxide (Milk Of Mag) 30 ml DAILY PRN PO CONSTIPATION; Start 11/02/18 at 11:30 Pantoprazole (Protonix Iv) 40 mg DAILY@06 IV Last administered on 11/08/18at 06:39; Admin Dose 40 MG; Start 11/03/18 at 06:00 Enoxaparin Sodium (Lovenox) 40 mg DAILY SC Last administered on 11/08/18at 08:52; Admin Dose 40 MG; Start 11/03/18 at 09:00 Metoprolol Tartrate (Lopressor) 5 mg Q6H PRN IV HR >110; Start 11/02/18 at 17:30 Miscellaneous Information 1 ea NOTE XX ; Start 11/02/18 at 22:30 Miscellaneous Information 1 ea NOTE XX ; Start 11/06/18 at 18:00 Glucose (Glutose) 15 gm Q15M PRN PO DECREASED GLUCOSE; Start 11/06/18 at 18:00 Glucose (Glutose) 22.5 gm Q15M PRN PO DECREASED GLUCOSE; Start 11/06/18 at 18:00 Dextrose (D50w Syringe) 25 ml Q15M PRN IV DECREASED GLUCOSE; Start 11/06/18 at 18:00 Dextrose (D50w Syringe) 50 ml Q15M PRN IV DECREASED GLUCOSE; Start 11/06/18 at 18:00 Glucagon (Glucagen) 1 mg Q15M PRN IM DECREASED GLUCOSE; Start 11/06/18 at 18:00 Glucose (Glutose) 15 gm Q15M PRN BUCCAL DECREASED GLUCOSE; Start 11/06/18 at 18:00 Guaifenesin/ Codeine Phosphate (Robitussin Ac Liquid Cup) 5 ml Q4H PRN PO COUGH Last administered on 11/07/18at 07:09; Admin Dose 5 ML; Start 11/06/18 at 23:00 Albuterol/ Ipratropium (Duoneb) 3 ml PRN PRN HHN COUGHING; Start 11/06/18 at 23:30 Voriconazole (Vfend) 200 mg BID PO Last administered on 11/08/18 08:46; Admin Dose 200 MG; Start 11/07/18 at 11:45; Stop 11/11/18 at 23:59 Insulin Glargine (Lantus) 17 units BID SC Last administered on 11/08/18 08:45; Admin Dose 17 UNITS; Start 11/07/18 at 21:00 Insulin Aspart (Novolog Insulin Pen) 3 unit WITH MEALS SC Last administered on 11/08/18 08:46; Admin Dose 3 UNIT; Start 11/07/18 at 17:35 Diagnostic Test (Pha) (Accu-Chek) 1 ea 02 XX ; Start 11/08/18 at 02:00 Insulin Aspart (Novolog Insulin Pen) NOVOLOG *MILD* ALGORITHM WITH MEALS BEDTIME SC Last administered on 11/07/18 22:29; Admin Dose 2 UNIT; Start 11/08/18 at 07:50 Phenol (Cepastat Lozenge) 1 lozenge Q1H PRN MT SORE THROAT Last administered on 11/08/18at 09:07; Admin Dose 1 LOZENGE; Start 11/08/18 at 03:00 SONU DE LA ROSA MD Nov 08, 2018 10:58
[2018-11-08] MEDS: KETOROLAC 30 MG INJ IV PRN (12:09)
--- NOTE | 2018-11-08 12:27 | CONS ---
Consult Date/Type/Reason Admit Date/Time Nov 02, 2018 at 10:29 Initial Consult Date 11/02/18 Type of Consult Pulmonary Requesting Provider: GOSIA OPNCE MD Date/Time of Note DATE: 11/08/18 TIME: 12:23 Subjective Patient stable this morning. No new events. Requesting Toradol instead of Christoval. Objective Vital Signs Date Temp Pulse Resp B/P (MAP) Pulse Ox O2 O2 Flow FiO2 Time Delivery Rate 11/08/18 98.7 93 14 168/84 100 Nasal 07:46 (112) Cannula 11/08/18 2.0 04:30 11/06/18 36 18:20 Intake and Output 11/07/18 11/07/18 11/08/18 1515:00 23:00 07:00 IntakeIntake Total 1500 ml 200 ml OutputOutput Total 800 ml BalanceBalance 700 ml 200 ml Exam GENERAL: Well-nourished well-developed comfortable at rest no acute distress VITAL SIGNS: per chart NECK: Supple. No JVD or lymphadenopathy. CARDIAC EXAM: S1, S2. No added sounds or murmurs. CHEST: clear bilaterally, No added sounds, rales or wheezes ABDOMEN: Soft, nontender. No guarding or rebound. EXTREMITIES: No cyanosis, clubbing or edema. NEUROLOGIC: Generalized weakness. No focal deficits. Vent Setting Ventilator Support Mode: CPAP, PS Fraction of Inspired Oxygen pe: 36 Positive End Expiratory Pressu: 5.0 Results/Medications Result Diagram: 11/07/18 0400 11/07/18 0400 Results 24 hrs Laboratory Tests Test 11/07/18 12:24 11/07/18 17:36 11/07/18 21:09 11/07/18 22:26 Bedside Glucose 183 164 244 H 252 H Test 11/08/18 01:34 11/08/18 08:39 Bedside Glucose 213 134 Medications Current Medications Ondansetron HCl (Zofran Inj) 4 mg Q6H PRN IV NAUSEA AND/OR VOMITING Last administered on 11/07/18at 01:02; Admin Dose 4 MG; Start 11/02/18 at 11:30 Acetaminophen (Tylenol Liquid) 650 mg Q6H PRN PO PAIN LEVEL 1-3 OR FEVER Last administered on 11/07/18at 17:48; Admin Dose 650 MG; Start 11/02/18 at 11:30 Acetaminophen/ Hydrocodone Bitart ([place] (5/325)) 1 tab Q6H PRN PO PAIN LEVEL 4-6; Start 11/02/18 at 11:30 Docusate Sodium (Colace) 100 mg Q12H PRN PO CONSTIPATION; Start 11/02/18 at 11:30 Magnesium Hydroxide (Milk Of Mag) 30 ml DAILY PRN PO CONSTIPATION; Start 11/02/18 at 11:30 Pantoprazole (Protonix Iv) 40 mg DAILY@06 IV Last administered on 11/08/18at 06:39; Admin Dose 40 MG; Start 11/03/18 at 06:00 Enoxaparin Sodium (Lovenox) 40 mg DAILY SC Last administered on 11/08/18at 08:52; Admin Dose 40 MG; Start 11/03/18 at 09:00 Metoprolol Tartrate (Lopressor) 5 mg Q6H PRN IV HR >110; Start 11/02/18 at 17:30 Miscellaneous Information 1 ea NOTE XX ; Start 11/02/18 at 22:30 Miscellaneous Information 1 ea NOTE XX ; Start 11/06/18 at 18:00 Glucose (Glutose) 15 gm Q15M PRN PO DECREASED GLUCOSE; Start 11/06/18 at 18:00 Glucose (Glutose) 22.5 gm Q15M PRN PO DECREASED GLUCOSE; Start 11/06/18 at 18:00 Dextrose (D50w Syringe) 25 ml Q15M PRN IV DECREASED GLUCOSE; Start 11/06/18 at 18:00 Dextrose (D50w Syringe) 50 ml Q15M PRN IV DECREASED GLUCOSE; Start 11/06/18 at 18:00 Glucagon (Glucagen) 1 mg Q15M PRN IM DECREASED GLUCOSE; Start 11/06/18 at 18:00 Glucose (Glutose) 15 gm Q15M PRN BUCCAL DECREASED GLUCOSE; Start 11/06/18 at 18:00 Guaifenesin/ Codeine Phosphate (Robitussin Ac Liquid Cup) 5 ml Q4H PRN PO COUGH Last administered on 11/07/18at 07:09; Admin Dose 5 ML; Start 11/06/18 at 23:00 Albuterol/ Ipratropium (Duoneb) 3 ml PRN PRN HHN COUGHING; Start 11/06/18 at 23:30 Voriconazole (Vfend) 200 mg BID PO Last administered on 11/08/18 08:46; Admin Dose 200 MG; Start 11/07/18 at 11:45; Stop 11/11/18 at 23:59 Insulin Glargine (Lantus) 17 units BID SC Last administered on 11/08/18 08:45; Admin Dose 17 UNITS; Start 11/07/18 at 21:00 Diagnostic Test (Pha) (Accu-Chek) 1 ea 02 XX ; Start 11/08/18 at 02:00 Insulin Aspart (Novolog Insulin Pen) NOVOLOG *MILD* ALGORITHM WITH MEALS BEDTIME SC Last administered on 11/07/18 22:29; Admin Dose 2 UNIT; Start 11/08 at 07:50 Phenol (Cepastat Lozenge) 1 lozenge Q1H PRN MT SORE THROAT Last administered on 11/08/18 09:07; Admin Dose 1 LOZENGE; Start 11/08/18 at 03:00 Insulin Aspart (Novolog Insulin Pen) 8 unit WITH MEALS SC ; Start 11/08/18 at 11:40 Ketorolac Tromethamine (Toradol) 30 mg Q6H PRN IV PAIN LEVEL 1-3 Last administered on 11/08/18at 12:09; Admin Dose 30 MG; Start 11/08/18 at 11:00; Stop 11/11/18 at 10:59 Assessment/Plan Hospital Course (Demo Recall) IMP: 1. Severe DKA now resolved 2. Severe Anion Gap Metabolic Acidosis 2/2 #1 now improved. 3. Pre-renal azotemia 4. Resp Failure 2/2 severe acidemia 5. Resolved electrolyte imbalance 6. Possible substance abuse and noncompliance. Resolved encephalopathy RECS: 1. Advance diet as tolerated 2. Mobilize 3. Bronchodilators incentive spirometry postextubation 4. Physical therapy 5. Pain control Will follow as needed. FILIPPO ROLDAN MD, FCCP Nov 08, 2018 12:27
--- NOTE | 2018-11-08 14:12 | PN ---
Date/Time of Note Date/Time of Note DATE: 11/08/18 TIME: 14:11 Assessment/Plan VTE Prophylaxis Risk score (from Ns)>0 risk: 0 SCD applied (from Ns): No SCD contraindicated: low risk/ambulating Pharmacological prophylaxis: heparin Lines/Catheters IV Catheter Type (from Nrsg): Central Line Central line still needed: Yes Urinary Cath still in place: No Assessment/Plan Problems: (1) Diabetic ketoacidosis Status: Resolved Comment: Fully resolved. Qualifiers: Diabetes mellitus type: type 1 Diabetes mellitus complication detail: without coma Qualified Codes: E10.10 - Type 1 diabetes mellitus with ketoacidosis without coma (2) Diabetes mellitus type 1 Status: Chronic Comment: Progressing with multiple daily injection regimen. Plan for morning discharge Qualifiers: Diabetes mellitus complication status: without complication Qualified Codes: E10.9 - Type 1 diabetes mellitus without complications (3) Abnormal liver enzymes Status: Acute Comment: Noted. Result Diagram: 11/07/18 0400 11/07/18 0400 Results 24hrs Laboratory Tests Test 11/07/18 17:36 11/07/18 21:09 11/07/18 22:26 11/08/18 01:34 Bedside Glucose 164 244 H 252 H 213 Test 11/08/18 08:39 11/08/18 12:33 Bedside Glucose 134 198 Subjective 24 Hr Interval Summary Free Text/Dictation Patient is feeling much better today. Respiratory: no complaints Cardiovascular: no complaints Endocrine: no complaints Exam/Review of Systems Exam Vitals Vital Signs Date Temp Pulse Resp B/P (MAP) Pulse Ox O2 O2 Flow FiO2 Time Delivery Rate 11/08/18 98.7 93 14 168/84 100 Nasal 07:46 (112) Cannula 11/08/18 2.0 04:30 11/06/18 36 18:20 Intake and Output 11/07/18 11/07/18 11/08/18 1515:00 23:00 07:00 IntakeIntake Total 1500 ml 200 ml OutputOutput Total 800 ml BalanceBalance 700 ml 200 ml Constitutional: alert, oriented Respiratory: clear to auscultation, normal air movement Cardiovascular: regular rate and rhythm, nl pulses Gastrointestinal: soft, nl liver, spleen, non-tender Results Results 24hrs Laboratory Tests Test 11/07/18 17:36 11/07/18 21:09 11/07/18 22:26 11/08/18 01:34 Bedside Glucose 164 244 H 252 H 213 Test 11/08/18 08:39 11/08/18 12:33 Bedside Glucose 134 198 Medications Medication Current Medications Ondansetron HCl (Zofran Inj) 4 mg Q6H PRN IV NAUSEA AND/OR VOMITING Last administered on 11/07/18at 01:02; Admin Dose 4 MG; Start 11/02/18 at 11:30 Acetaminophen (Tylenol Liquid) 650 mg Q6H PRN PO PAIN LEVEL 1-3 OR FEVER Last administered on 11/07/18at 17:48; Admin Dose 650 MG; Start 11/02/18 at 11:30 Acetaminophen/ Hydrocodone Bitart ([place] (5/325)) 1 tab Q6H PRN PO PAIN LEVEL 4-6; Start 11/02/18 at 11:30 Docusate Sodium (Colace) 100 mg Q12H PRN PO CONSTIPATION; Start 11/02/18 at 11:30 Magnesium Hydroxide (Milk Of Mag) 30 ml DAILY PRN PO CONSTIPATION; Start 11/02/18 at 11:30 Pantoprazole (Protonix Iv) 40 mg DAILY@06 IV Last administered on 11/08/18at 06: 39; Admin Dose 40 MG; Start 11/03/18 at 06:00 Enoxaparin Sodium (Lovenox) 40 mg DAILY SC Last administered on 11/08/18at 08:52; Admin Dose 40 MG; Start 11/03/18 at 09:00 Metoprolol Tartrate (Lopressor) 5 mg Q6H PRN IV HR >110; Start 11/02/18 at 17:30 Miscellaneous Information 1 ea NOTE XX ; Start 11/02/18 at 22:30 Miscellaneous Information 1 ea NOTE XX ; Start 11/06/18 at 18:00 Glucose (Glutose) 15 gm Q15M PRN PO DECREASED GLUCOSE; Start 11/06/18 at 18:00 Glucose (Glutose) 22.5 gm Q15M PRN PO DECREASED GLUCOSE; Start 11/06/18 at 18:00 Dextrose (D50w Syringe) 25 ml Q15M PRN IV DECREASED GLUCOSE; Start 11/06/18 at 18:00 Dextrose (D50w Syringe) 50 ml Q15M PRN IV DECREASED GLUCOSE; Start 11/06/18 at 18:00 Glucagon (Glucagen) 1 mg Q15M PRN IM DECREASED GLUCOSE; Start 11/06/18 at 18:00 Glucose (Glutose) 15 gm Q15M PRN BUCCAL DECREASED GLUCOSE; Start 11/06/18 at 18:00 Guaifenesin/ Codeine Phosphate (Robitussin Ac Liquid Cup) 5 ml Q4H PRN PO COUGH Last administered on 11/07/18 07:09; Admin Dose 5 ML; Start 11/06/18 at 23:00 Albuterol/ Ipratropium (Duoneb) 3 ml PRN PRN HHN COUGHING; Start 11/06/18 at 23:30 Voriconazole (Vfend) 200 mg BID PO Last administered on 11/08/18 08:46; Admin Dose 200 MG; Start 11/07/18 at 11:45; Stop 11/11/18 at 23:59 Insulin Glargine (Lantus) 17 units BID SC Last administered on 11/08/18 08:45; Admin Dose 17 UNITS; Start 11/07/18 at 21:00 Diagnostic Test (Pha) (Accu-Chek) 1 ea 02 XX ; Start 11/08/18 at 02:00 Insulin Aspart (Novolog Insulin Pen) NOVOLOG *MILD* ALGORITHM WITH MEALS BEDTIME SC Last administered on 11/08/18 12:37; Admin Dose 2 UNIT; Start 11/08/18 at 07:50 Phenol (Cepastat Lozenge) 1 lozenge Q1H PRN MT SORE THROAT Last administered on 11/08/18 09:07; Admin Dose 1 LOZENGE; Start 11/08/18 at 03:00 Insulin Aspart (Novolog Insulin Pen) 8 unit WITH MEALS SC Last administered on 11/08/18 12:38; Admin Dose 8 UNIT; Start 11/08/18 at 11:40 Ketorolac Tromethamine (Toradol) 30 mg Q6H PRN IV PAIN LEVEL 1-3 Last administered on 11/08/18 12:09; Admin Dose 30 MG; Start 11/08/18 at 11:00; Stop 11/11/18 at 10:59 AMIRA REA MD Nov 08, 2018 14:12
[2018-11-08 14:55] VITALS: BP 124/58; PULSE 95; RESP 14
[2018-11-08 19:20] VITALS: BP 121/58; PULSE 93
[2018-11-09] MEDS: ACCU-CHEK XX SCH (02:00)
[2018-11-09 02:52] VITALS: BP 148/74; PULSE 99; RESP 20
[2018-11-09] MEDS: GUAIFENESIN/CODEINE 5ML CUP PO PRN (03:41)
[2018-11-09] MEDS: KETOROLAC 30 MG INJ IV PRN ×3 (03:41→17:05)
[2018-11-09] MEDS: PANTOPRAZOLE 40 MG INJ IV SCH (06:56)
[2018-11-09 07:22] VITALS: BP 134/66; PULSE 94; RESP 16
[2018-11-09] MEDS: INSULIN ASPART [NOVOLOG] 3 ML PEN SC SCH ×6 (07:50→17:46)
[2018-11-09] MEDS: VORICONAZOLE 200 MG TAB PO SCH (08:20)
[2018-11-09] MEDS: BALSAM PERU/CASTOR OIL 60 GM TUBE TOP SCH (08:22)
[2018-11-09] MEDS: INSULIN GLARGINE [LANTus] (100 UNITS/ML) SYG SC SCH (08:22)
[2018-11-09] MEDS: ENOXAPARIN 40 MG/0.4 ML SYG SC SCH (08:22)
--- NOTE | 2018-11-09 09:52 | CONS ---
Assessment/Plan Assessment/Plan Problems: (1) Diabetes mellitus type 1 Status: Chronic Comment: Getting good glycemic control on Lantus 17 units q12 and Novolog 8 units qac. Will follow. Qualifiers: Diabetes mellitus complication status: without complication Qualified Co charu: E10.9 - Type 1 diabetes mellitus without complications (2) Hypokalemia Status: Acute Comment: Replace potassium 40 mEq IV x 1. Will also give 4 g Magnesium as total body Mg deficiency likely a contributing factor to hypokalemia. Consultation Date/Type/Reason Admit Date/Time Nov 02, 2018 at 10:29 Initial Consult Date 11/03/18 Type of Consult Endocrinology Reason for Consultation DKA Requesting Provider: GOSIA PONCE MD Date/Time of Note DATE: 11/09/18 TIME: 09:50 24 HR Interval Summary Constitutional: no complaints, improved Detailed Summary ENT: sore throat (cepacol and toradol help) Respiratory: no complaints Cardiovascular: no complaints Gastrointestinal: no complaints Genitourinary: no complaints Musculoskeletal: no complaints Neurologic: no complaints Exam/Review of Systems Exam Vitals VS - Last 72 Hours, by Label Date Temp Pulse Resp B/P (MAP) Pulse Ox O2 O2 Flow FiO2 Time Delivery Rate 11/09/18 98.4 94 16 134/66 100 Room Air 07:22 (88) 11/09/18 98.8 99 20 148/74 97 Room Air 02:52 (98) 11/09/18 2.0 00:06 11/08/18 2.0 20:00 11/08/18 98.5 93 121/58 98 Room Air 19:20 (79) 11/08/18 99.0 95 14 124/58 100 Room Air 14:55 (80) 11/08/18 98.7 93 14 168/84 100 Nasal 07:46 (112) Cannula 11/08/18 98.4 102 20 159/76 94 Room Air 07:18 (103) 11/08/18 2.0 04:30 11/08/18 99.0 97 18 126/63 94 00:00 (84) 11/07/18 2.0 20:00 11/07/18 100.1 107 18 124/61 93 19:30 (82) 11/07/18 98.4 108 20 139/65 94 Nasal 3.0 16:55 (89) Cannula 11/07/18 98 16 128/65 95 Nasal 16:00 (86) Cannula 11/07/18 97.8 111 18 143/70 98 Nasal 15:00 (94) Cannula 11/07/18 102 18 127/69 98 Nasal 14:00 (88) Cannula 11/07/18 108 20 122/80 81 Nasal 13:00 (94) Cannula 11/07/18 98.0 91 18 112/54 100 Nasal 12:00 (73) Cannula 11/07/18 92 12:00 11/07/18 96 18 120/65 89 Nasal 11:00 (83) Cannula 11/07/18 2.0 10:40 11/07/18 97 16 134/105 98 Nasal 10:00 (115) Cannula 11/07/18 90 12 126/84 98 Nasal 09:00 (98) Cannula 11/07/18 Nasal 2.0 08:00 Cannula 11/07/18 98.0 88 11 122/67 100 Nasal 08:00 (85) Cannula 11/07/18 88 08:00 11/07/18 89 18 105/46 100 Nasal 07:00 (65) Cannula 11/07/18 97 17 118/60 100 Nasal 06:00 (79) Cannula 11/07/18 95 16 120/54 100 Nasal 05:00 (76) Cannula 11/07/18 96 04:00 11/07/18 97.7 90 24 128/53 100 Nasal 04:00 (78) Cannula 11/07/18 92 10 118/65 100 Nasal 03:00 (82) Cannula 11/07/18 96 20 113/53 100 Nasal 02:00 (73) Cannula 11/07/18 105 30 128/75 100 Nasal 01:00 (92) Cannula 11/07/18 2.0 00:22 11/07/18 93 00:01 11/07/18 97.5 92 21 135/70 100 Nasal 00:00 (91) Cannula 11/07/18 2.0 00:00 11/06/18 93 8 118/60 100 Nasal 23:00 (79) Cannula 11/06/18 94 17 133/97 100 Nasal 22:00 (109) Cannula 11/06/18 100 112/62 100 Nasal 21:00 (79) Cannula 11/06/18 99.6 103 13 124/69 99 Nasal 20:00 (87) Cannula 11/06/18 106 20:00 11/06/18 Nasal 4.0 20:00 Cannula 11/06/18 2.0 20:00 11/06/18 110 16 158/32 99 Nasal 19:00 (74) Cannula 11/06/18 4.0 36 18:20 11/06/18 110 20 138/67 100 Nasal 18:00 (90) Cannula 11/06/18 102 13 102/69 97 Nasal 17:00 (80) Cannula 11/06/18 99.5 100 14 127/61 100 Nasal 16:00 (83) Cannula 11/06/18 98 16:00 11/06/18 88 12 112/62 100 Nasal 15:00 (79) Cannula 11/06/18 90 12 120/67 100 Nasal 14:00 (84) Cannula 11/06/18 85 5 134/84 100 Nasal 13:00 (101) Cannula 11/06/18 99.5 85 16 130/73 100 Nasal 12:00 (92) Cannula 11/06/18 82 12:00 11/06/18 84 15 126/83 100 Nasal 11:00 (97) Cannula 11/06/18 Nasal 2.0 10:07 Cannula 11/06/18 86 22 127/83 100 [place] 10:00 (98) l Ventilato r Vital Signs Date Temp Pulse Resp B/P (MAP) Pulse Ox O2 O2 Flow FiO2 Time Delivery Rate 11/09/18 98.4 94 16 134/66 100 Room Air 07:22 (88) 11/09/18 2.0 00:06 11/06/18 36 18:20 Intake and Output 11/08/18 11/08/18 11/09/18 1414:59 22:59 06:59 IntakeIntake Total 200 ml BalanceBalance 200 ml Constitutional: alert, oriented, well developed Psych: no complaints, nl mood/affect Respiratory: clear to auscultation, normal air movement Cardiovascular: regular rate and rhythm, nl pulses; No edema, No murmurs/extra sounds, No rub Gastrointestinal: soft, nl liver, spleen, non-tender, bowel sounds; No mass, No rebound or guarding Musculoskeletal: nl extremities to inspection Extremities: normal pulses; No cyanosis, No clubbing, No edema Neurological: [employer]IST II-XII intact, nl mental status, nl speech, nl strength Additional Comments Bedside Glucose - 72 Hours Test 11/06/18 11:21 11/06/18 12:19 11/06/18 13:48 11/06/18 15:21 Bedside 179 166 168 123 Glucose mg/dL (70-220) mg/dL (70-220) mg/dL (70-220) mg/dL (70-220) Test 11/06/18 21:24 11/07/18 00:32 11/07/18 05:18 11/07/18 08:41 Bedside 286 201 180 125 Glucose mg/dL (70-220) mg/dL (70-220) mg/dL (70-220) mg/dL (70-220) H Test 11/07/18 12:24 11/07/18 17:36 11/07/18 21:09 11/07/18 22:26 Bedside 183 164 244 252 Glucose mg/dL (70-220) mg/dL (70-220) mg/dL (70-220) mg/dL (70-220) H H Test 11/08/18 01:34 11/08/18 08:39 11/08/18 12:33 11/08/18 17:45 Bedside 213 134 198 198 Glucose mg/dL (70-220) mg/dL (70-220) mg/dL (70-220) mg/dL (70-220) Test 11/08/18 21:10 11/09/18 08:18 Bedside 140 81 Glucose mg/dL (70-220) mg/dL (70-220) Results Result Diagram: 11/07/18 0400 11/09/18 0432 Results 24hrs Laboratory Tests Test 11/08/18 12:33 11/08/18 17:45 11/08/18 21:10 11/09/18 04:32 Bedside Glucose 198 198 140 Sodium Level 140 Potassium Level 3.2 L Chloride Level 103 Carbon Dioxide Level 29 Anion Gap 8 Blood Urea Nitrogen 10 Creatinine 0.70 Est Glomerular > 60 Filtrat Rate mL/min Glucose Level 147 Calcium Level 8.1 L Total Bilirubin 0.0 L Direct Bilirubin 0.00 Indirect Bilirubin 0.0 Aspartate Amino 74 H Transf (AST/SGOT) Alanine 190 H Aminotransferase (AL T/SGPT) Alkaline Phosphatase 172 H Total Protein 5.4 L Albumin 2.5 L Globulin 2.90 Albumin/Globulin 0.86 Ratio Test 11/09/18 08:18 Bedside Glucose 81 Medications Medication Current Medications Ondansetron HCl (Zofran Inj) 4 mg Q6H PRN IV NAUSEA AND/OR VOMITING Last administered on 11/07/18at 01:02; Admin Dose 4 MG; Start 11/02/18 at 11:30 Acetaminophen (Tylenol Liquid) 650 mg Q6H PRN PO PAIN LEVEL 1-3 OR FEVER Last administered on 11/07/18at 17:48; Admin Dose 650 MG; Start 11/02/18 at 11:30 Acetaminophen/ Hydrocodone Bitart ([place] (5/325)) 1 tab Q6H PRN PO PAIN LEVEL 4-6; Start 11/02/18 at 11:30 Docusate Sodium (Colace) 100 mg Q12H PRN PO CONSTIPATION; Start 11/02/18 at 11:30 Magnesium Hydroxide (Milk Of Mag) 30 ml DAILY PRN PO CONSTIPATION; Start 11/02/18 at 11:30 Pantoprazole (Protonix Iv) 40 mg DAILY@06 IV Last administered on 11/09/18at 06:56; Admin Dose 40 MG; Start 11/03/18 at 06:00 Enoxaparin Sodium (Lovenox) 40 mg DAILY SC Last administered on 11/09/18at 08:22; Admin Dose 40 MG; Start 11/03/18 at 09:00 Metoprolol Tartrate (Lopressor) 5 mg Q6H PRN IV HR >110; Start 11/02/18 at 17:30; Status Hold Miscellaneous Information 1 ea NOTE XX ; Start 11/02/18 at 22:30 Miscellaneous Information 1 ea NOTE XX ; Start 11/06/18 at 18:00 Glucose (Glutose) 15 gm Q15M PRN PO DECREASED GLUCOSE; Start 11/06/18 at 18:00 Glucose (Glutose) 22.5 gm Q15M PRN PO DECREASED GLUCOSE; Start 11/06/18 at 1 8:00 Dextrose (D50w Syringe) 25 ml Q15M PRN IV DECREASED GLUCOSE; Start 11/06/18 at 18:00 Dextrose (D50w Syringe) 50 ml Q15M PRN IV DECREASED GLUCOSE; Start 11/06/18 at 18:00 Glucagon (Glucagen) 1 mg Q15M PRN IM DECREASED GLUCOSE; Start 11/06/18 at 18:00 Glucose (Glutose) 15 gm Q15M PRN BUCCAL DECREASED GLUCOSE; Start 11/06/18 at 18:00 Guaifenesin/ Codeine Phosphate (Robitussin Ac Liquid Cup) 5 ml Q4H PRN PO COUGH Last administered on 11/09/18at 03:41; Admin Dose 5 ML; Start 11/06/18 at 23:00 Albuterol/ Ipratropium (Duoneb) 3 ml PRN PRN HHN COUGHING; Start 11/06/18 at 23:30 Voriconazole (Vfend) 200 mg BID PO Last administered on 11/09/18at 08:20; Admin Dose 200 MG; Start 11/07/18 at 11:45; Stop 11/11/18 at 23:59 Insulin Glargine (Lantus) 17 units BID SC Last administered on 11/09/18at 08:22; Admin Dose 17 UNITS; Start 11/07/18 at 21:00 Diagnostic Test (Pha) (Accu-Chek) 1 ea 02 XX ; Start 11/08/18 at 02:00 Insulin Aspart (Novolog Insulin Pen) NOVOLOG *MILD* ALGORITHM WITH MEALS B EDTIME SC Last administered on 11/08/18at 17:47; Admin Dose 2 UNIT; Start 11/08/18 at 07:50 Phenol (Cepastat Lozenge) 1 lozenge Q1H PRN MT SORE THROAT Last administered on 11/08/18at 09:07; Admin Dose 1 LOZENGE; Start 11/08/18 at 03:00 Insulin Aspart (Novolog Insulin Pen) 8 unit WITH MEALS SC Last administered on 11/09/18at 08:21; Admin Dose 8 UNIT; Start 11/08/18 at 11:40 Ketorolac Tromethamine (Toradol) 30 mg Q6H PRN IV PAIN LEVEL 1-3 Last administered on 11/09/18at 03:41; Admin Dose 30 MG; Start 11/08/18 at 11:00; Stop 11/11/18 at 10:59 Potassium Chloride 100 ml @ 50 mls/hr Q2H IVPB ; Start 11/09/18 at 10:00; Stop 11/09/18 at 13:59; Status UNV Magnesium Sulfate 100 ml @ 25 mls/hr ONCE ONCE IVPB ; Start 11/09/18 at 10:00; Stop 11/09/18 at 13:59; Status SONU BOOKER MD Nov 09, 2018 09:52
[2018-11-09] MEDS ORDERED: MAGNESIUM SULFATE 4 GM/100 ML 100 ML IVPB ONE (10:00)
[2018-11-09] MEDS: POTASSIUM CHLORIDE 100 ML IVPB SCH ×2 (11:26→14:43)
--- NOTE | 2018-11-09 11:31 | DS ---
Date/Time of Note Date/Time of Note DATE: 11/09/18 TIME: 11:26 Discharge Summary Admission/Discharge Info Admit Date/Time Nov 02, 2018 at 10:29 Discharge Date/Time November 09, 2018 Discharge Diagnosis Diabetic ketoacidosis; respiratory failure requiring brief intubation and mechanical ventilation times 3 days; diabetes mellitus type 1 of 33 years duration; diabetic peripheral neuropathy; attention deficit hyperactivity disorder on Adderall; hypokalemia; hypomagnesemia; Lilia; abnormal liver chemistries with negative hepatitis serologies Patient Condition: Fair Consults Endocrinology; pulmonology Procedures To patient on mechanical ventilation; medical ultrasound; echocardiogram; Hx of Present Illness HPI This is a 42-year-old female with a past medical history of insulin-dependent diabetes who is presenting with symptoms concerning for DKA. The patient has had several days of progressive worsening lethargy, dehydration, polydipsia, polyuria, nausea and abdominal pain. She does not endorse vomiting or diarrhea. The patient has been more lethargic as well. She does not endorse feeling sick over the last several days. She denies any fever or chills. The patient has had no headache or vision changes. The patient does not endorse neck or back pain. The patient denies lightheadedness or dizziness. The patient has had no chest pain or trouble breathing. The patient denies abdominal pain. The patient denies changes to bowel movements. The patient has had no focal deficits. The patient has had no weakness or numbness or tingling to the face or extremities. Hx of Present Illness 42 yo F with PMH Diabetes type 1 and CVA presented to ED due to abdominal pain, nausea, and overall malaise since yesterday. Patient was intubated due to respiratory distress and history was obtain from ED physician as well as mother. Per mother, patient usually is on an insulin pump but has not had hers so had been manually dosing her insulin with little success. She has been very thirsty and drinking diet coke. Patient was in normal state of health until around noon when she asked her mom to call the ambulance. Patient has been hospitalized recently for DKA at [facility]. Per mother, patients father in April 2018. The pump she was supposed to transition to after her current one failed was accidently thrown away when her fathers house was cleaned out since she was residing with him. She was unable to adequately manage her sugars and ended up in ICU at [facility] [place]. Following admission, she tried to get in with an trash truck driver for a new pump but has not been successful. She was hospitalized again in July 2018 for DKA as well and still has not followed up with Endocrinology. Per mother, she usually is very good about glucose control when she had the pump but has been struggling since administering insulin manually. Denies any knowledge of drug or alcohol use currently. Mother states she used in her 20s but has been told she no longer uses any recreational drug or alcohol. Hx of Present Illness Briefly, this is a 42-year-old female with type I DM, previously on insulin pump who, possible amphetamine use, who presents with nausea/vomiting, hyperglycemia, and dehydration, noted to be in severe DKA with associated AG metabolic acidosis, ISABELLE and increased [id number], s/p intubation in the ED. She currently intubated on mechanical ventilation on sedation. Hospital Course 42-year-old female with a 33-year history of diabetes mellitus type 1. She had been maintained on insulin pump but after her father passed roughly 7 months ago her insulin pump replacement was apparently lost-thrown away. She has been on multiple daily injection regimen since that time has had 3 admissions for DKA since that transition. She came in in severe DKA and actually required intubation and mechanical ventilation. Her serum pH was less than 6.8 at the time of admission with no measurable bicarbonate. She responded to routine supportive care and ultimately was able to be extubated successfully. She is improved nicely and is able to be discharged home. Please note that there are plans for her to transition back on to an insulin pump system. Her prior system was a [employer] she may be going over to the [employer] pod based system Home Meds Unable to Obtain Active Prescriptions or Reported Meds Follow-up Plan Dr. Josh Bravo tomorrow. Primary Care Provider [facility] Time spent on discharge: > 30 minutes Pending Labs Laboratory Tests Test 11/08/18 12:33 11/08/18 17:45 11/08/18 21:10 11/09/18 04:32 Bedside 198 198 140 Glucose mg/dL (70-220) mg/dL (70-220) mg/dL (70-220) Sodium Level 140 mmol/L (135-14 4) Potassium 3.2 Level mmol/L (3.5-5. 1) Chloride Level 103 mmol/L (97-110 ) Carbon Dioxide 29 Level mmol/L (21-31) Anion Gap 8 (5-13) Blood Urea 10 Nitrogen mg/dl (7-20) Creatinine 0.70 mg/dl (0.44-1. 00) Est Glomerular > 60 Filtrat mL/min (>60) Rate mL/min Glucose Level 147 mg/dl (70-220) Calcium Level 8.1 mg/dl (8.4-10. 2) Total 0.0 Bilirubin mg/dl (0.2-1.3 ) Direct 0.00 Bilirubin mg/dl (0.00-0. 20) Indirect 0.0 Bilirubin mg/dl (0-1.1) Aspartate Amino 74 Transf (AST/SGO IU/L (15-46) T) Alanine 190 Aminotransferas IU/L (13-69) e (ALT/SGPT) Alkaline 172 Phosphatase IU/L (42-121) Total Protein 5.4 g/dl (6.1-8.1) Albumin 2.5 g/dl (3.3-4.9) Globulin 2.90 g/dl (1.3-3.2) Albumin/Globuli 0.86 n Ratio Test 11/09/18 08:18 Bedside 81 Glucose mg/dL (70-220) AMIRA REA MD Nov 09, 2018 11:31
--- NOTE | 2018-11-09 11:32 | PDOCDIS ---
Discharge Instructions DIAGNOSIS Discharge Diagnosis Diabetic ketoacidosis; respiratory failure requiring brief intubation and mechanical ventilation times 3 days; diabetes mellitus type 1 of 33 years duration; diabetic peripheral neuropathy; attention deficit hyperactivity disorder on Adderall; hypokalemia; hypomagnesemia; Lilia; abnormal liver chemistries with negative hepatitis serologies CONDITION [id number] Patient Condition: [id number] Fair HOME CARE INSTRUCTIONS: [id number] Special Diet: [id number] Diabetic/carb controlled diet ACTIVITY: [id number] Activity Restrictions: [id number] No Restrictions [id number] Bathing Restrictions: [id number] Shower FOLLOW UP/APPOINTMENTS Follow-up Plan Dr. Josh Bravo tomorrow. AMIRA REA MD Nov 09, 2018 11:32
[2018-11-09] MEDS ORDERED: Insulin Glargine SC (11:34)
[2018-11-09] MEDS ORDERED: NOVO3I SC (11:34)
[2018-11-09 14:32] VITALS: BP 130/67; PULSE 107; RESP 14
== END 2018-11-09 18:20 | disposition home or self-care (01) | DRG 637 ==
LOC: E/R 08:38 → ICU 10:29 → MS1 11-07 16:15
PROVIDERS: ADMIT Internal Medicine; ATTEND Internal Medicine
PROC: 5A1945Z Respiratory Ventilation, 24-96 Consecutive Hours (ICD-10-PCS; principal; 2018-11-02)
PROC: 0BH17EZ Insertion of Endotracheal Airway into Trachea, Via Natural or Artificial Opening (ICD-10-PCS; 2018-11-02)
PROC: 02HV33Z Insertion of Infusion Device into Superior Vena Cava, Percutaneous Approach (ICD-10-PCS; 2018-11-02)
DX: E10.10 Type 1 diabetes mellitus with ketoacidosis without coma (principal); J96.01 Acute respiratory failure with hypoxia; G92 Toxic encephalopathy; N17.9 Acute kidney failure, unspecified; E87.5 Hyperkalemia; E87.6 Hypokalemia; E83.41 Hypermagnesemia; E10.42 Type 1 diabetes mellitus with diabetic polyneuropathy; F90.9 Attention-deficit hyperactivity disorder, unspecified type; F15.10 Other stimulant abuse, uncomplicated; K76.0 Fatty (change of) liver, not elsewhere classified; R74.0 Nonspecific elevation of levels of transaminase and lactic acid dehydrogenase [LDH]; Z91.14 Patient's other noncompliance with medication regimen; Z87.891 Personal history of nicotine dependence
CPT/HCPCS: 31500; 36415; 36600; 71045; 76705; 80048; 80053; 80076; 80202; 80307; 81001; 81003; 82803; 82962; 83036; 83605; 83735; 84100; 84443; 84703; 85025; 85610; 86704; 86709; 86803; 87040; 87045; 87081; 87086; 87340; 92526; 92610; 93005; 93306; 94002; 94003; 94664; 94770; 96360; 97110; 97116; 97163; C9113; J0692; J1650; J1815; J1885; J2250; J2405; J2543; J3010; J3370; J3475; J3480; J7030; J7040; J7042; J7050; J7070; J7120